=== PATIENT | male | born 1950 | race Caucasian/White ===

== ENCOUNTER 2019-12-26 18:14 | Emergency (ER) | payer BC ==
--- OUTSIDE RECORDS SUMMARY | 2019-12-26 18:15 | XMS REPORT ---
:1950 Author Organization [facility] t Address [address] [place] [address] [place] [id number] Care Team Providers Name Role Phone Unavailable Unavailable Unavailable Problems This patient has no known problems. Allergies, Adverse Reactions, Alerts This patient has no known allergies or adverse reactions. Medications This patient has no known medications. Results Test Description Test Time Test Comments Text Results Atomic Results Result Comments SHIRA IBARRA, 2019-12-20 Reason for FINAL REPORT PATIENT NON-SPECIFIC, UP TO 1 12:58:00 exam:->dysphagia ID: [id number] A HOUR fluoroscopic unit was utilized for a procedure performed in the operating room. No interpretation was requested. Please refer to the operative report regarding findings. Please refer to PACS for patient radiation dose information. Signed: JR Benítez Robert MDReport Verified Date/Time: 12/20/2019 12:58:42 Reading Location: [facility] Radiology Reading Room
[2019-12-26] MEDS ORDERED: NA CHLORIDE 0.9% 1,000 ML ONE (18:39)
[2019-12-26 18:51] LABS: Protime INR 1.21
[2019-12-26 18:52] LABS: Absolute Lymphocytes (CBC) 0.8 K/uL (0.7-4.9); Basophils % 0.3 % (0-1.3); Hematocrit 28.8 % (39.6-49.0); MPV 9.6 fL (7.6-11.3); RBC Red Blood Cell Count 3.33 M/uL (4.33-5.43)
--- NOTE | 2019-12-26 19:07 | RAD REPORT ---
EXAM DESCRIPTION: RAD - Chest Single View - 12/26/2019 6:44 pm CLINICAL HISTORY: Near syncope, hypotension, CVA history COMPARISON: Two view chest November 16 TECHNIQUE: AP portable chest image was obtained 12/26/2019 6:44 pm . FINDINGS: Lung volumes are low compared to prior imaging study. No focal lung parenchymal process. N o failure or volume overload. Right-sided Port-A-Cath has been placed since prior imaging. Heart and vasculature are normal. No measurable pleural effusion and no pneumothorax. No acute bony abnormality seen. No acute aortic findings suspected. IMPRESSION: No acute cardiopulmonary process. No worrisome change from comparison.
--- NOTE | 2019-12-26 19:08 | RAD REPORT ---
EXAM DESCRIPTION: CT - Head Brain Wo Cont - 12/26/2019 6:38 pm CLINICAL HISTORY: DIZZINESS COMPARISON: HEAD BRAIN W O CONTRAST dated 07/20/2013 TECHNIQUE: Axial 5 mm thick images of the head were obtained without IV contrast. All CT scans are performed using dose optimization technique as appropriate and may include automated exposure control or mA/KV adjustment according to patient size. FINDINGS: No intracranial hemorrhage, mass, edema or shift of mid-line structures. No acute infarcti on changes seen. No abnormal extra-axial fluid collections. Mild atrophy changes are present. Ventric les are in proportion. Mild chronic ischemic change also evident. Mastoid air cells and visualized portions of the paranasal sinuses are clear. No acute bony findings. IMPRESSION: No acute intracranial finding identifiable. Mild atrophy and mild chronic ischemic changes are present similar to comparison.
[2019-12-26 19:09] LABS: ALT/SGPT 15 U/L (12-78); AST/SGOT 12 U/L (15-37); Albumin 2.1 g/dL (3.4-5.0); Alkaline Phosphatase 106 U/L (45-117); BUN Blood Urea Nitrogen 14 mg/dL (7-18); Bicarbonate 26 mmol/L (21-32); Bilirubin Direct < 0.1 mg/dL (0-0.2); Bilirubin Total 0.3 mg/dL (0.2-1.0); Glucose Level 134 mg/dL (74-106); Magnesium 1.7 mg/dL (1.8-2.4); NT PRO-BNP 140 pg/mL (<125); Potassium 3.9 mmol/L (3.5-5.1); Protein, Total 5.3 g/dL (6.4-8.2); Sodium Level 138 mmol/L (136-145); Troponin (Emerg Dept Use Only) < 0.02 ng/mL (0.0-0.045)
[2019-12-26] MEDS ORDERED: MAGNESIUM SULFATE 1 gm IVPB 1 GM/100 ML BAG IV ONE (19:39)
[2019-12-26] MEDS ORDERED: PANTOPRAZOLE 40 MG INJ ONE (20:43)
[2019-12-26] MEDS ORDERED: NA CHLORIDE 0.9% 100 ML IV ONE ×3 (20:43→22:34)
[2019-12-26] MEDS ORDERED: NA CHLORIDE 0.9% 250 ML ONE (20:46)
[2019-12-26] MEDS ORDERED: NA CHLORIDE 0.9% 500 ML ONE (20:49)
[2019-12-26] MEDS ORDERED: OCTREOTIDE ACETATE 100 MCG/ML ONE (20:50)
[2019-12-26] MEDS ORDERED: ONDANSETRON 4 MG/2 ML VIAL ONE ×2 (20:52→23:46)
--- NOTE | 2019-12-26 21:17 | ER ---
Nurse's Notes [facility] Name: Sagrario Sood Age: 69 yrs Sex: Male : 1950 Arrival Date: 12/26/2019 Time: 18:17 Bed 2 Private MD: Diagnosis: Gastrointestinal hemorrhage, unspecified;Near syncope Presentation: 12/25 18:17 Chief complaint: EMS states: NEAR-SYNCOPE AT HOME WITH HYPOTENSION. Coronavirus screen: bp Proceed with normal triage. Ebola Screen: No symptoms or risks identified at this time. Initial Sepsis Screen: Does the patient meet any 2 criteria? No. Patient's initial sepsis screen is negative. Does the patient have a suspected source of infection? No. Patient's initial sepsis screen is negative. Risk Assessment: Do you want to hurt yourself or someone else? Patient reports no desire to harm self or others. Onset of symptoms was December 26, 2019. 18:17 Method Of Arrival: EMS: [facility] bp 18:17 Acuity: PHILL 3 bp 18:21 Care prior to arrival: IV initiated. 20 GA, in the left antecubital area, Glucose bp check: 130. Triage Assessment: 18:20 General: Appears in no apparent distress. comfortable, Behavior is calm, cooperative, bp appropriate for age. Pain: Denies pain. EENT: No deficits noted. Neuro: Level of Consciousness is awake, alert, obeys commands, Oriented to person, place, time, situation, Appropriate for age. Cardiovascular: No deficits noted. Rhythm is sinus rhythm. Respiratory: No deficits noted. GI: No signs and/or symptoms were reported involving the gastrointestinal system. : No signs and/or symptoms were reported regarding the genitourinary system. Derm: No deficits noted. Musculoskeletal: No deficits noted. Historical: - Allergies: 18:20 Sulfa (Sulfonamide Antibiotics); bp - Home Meds: 18:20 Lisinopril Oral [Active]; aspirin 81 mg Oral chew 1 tab once daily [Active]; Omeprazole bp Oral [Active]; Zofran Oral [Active]; Tramadol Oral [Active]; - PMHx: 18:20 Cancer; ESOPHAGEAL WITH METS TO LYMPH NODES AND LIVER; Hypertension; CVA; bp - Immunization history:: Adult Immunizations up to date. - Social history:: Smoking status: Patient denies any tobacco usage or history of. Screenin:22 Abuse screen: Denies threats or abuse. Denies injuries from another. Nutritional bp screening: No deficits noted. Tuberculosis screening: No symptoms or risk factors identified. Fall Risk None identified. Assessment: 18:22 General: SEE TRIAGE NOTE. bp 18:40 Reassessment: PT TO RADIOLOGY. bp 18:56 Reassessment: PT RETURNED FROM CT. bp 19:15 Reassessment: Patient appears in no apparent distress at this time. Patient and/or ao family updated on plan of care and expected duration. Pain level reassessed. Patient is alert, oriented x 3, equal unlabored respirations, skin warm/dry/pink. Waiting on Dispo orders. 20:13 Reassessment: Patient appears in no apparent distress at this time. Patient and/or ao family updated on plan of care and expected duration. Pain level reassessed. 20:15 Reassessment: sun (patient's ) spoke to her for the plan of care and agreed. rr5 sun's number [phone]. 20:55 GI: Pt is actively vomiting bright red blood, Reports nausea, vomiting, went to rr5 restroom assisted by ariana reece (blood mix with stool). ED provider aware with order made and carried out. 21:05 Reassessment: Patient was moved from his room because he was projectile vomiting red ao blood. 21:27 Reassessment: Notified RASHARD Miller of patient low BP. ao 21:30 Reassessment: Called Lab to check ET for blood to be ready. Per lab blood should be ao ready in 10 to 20 min. Lab will call back when ready. 22:00 Reassessment: Patient appears in no apparent distress at this time. Patient and/or ao family updated on plan of care and expected duration. Pain level reassessed. Started first unit. 23:00 Reassessment: Report given to SERINA Reyes. Patient understand and agree with POC. ao Waiting on EMS for transportation. 23:00 Reassessment: Patient and/or family updated on plan of care and expected duration. Pain ao level reassessed. Patient is alert, oriented x 3, equal unlabored respirations, skin warm/dry/pink. Started second unit. 23:57 Reassessment: Patient appears in no apparent distress at this time. Patient and/or ao family updated on plan of care and expected duration. Pain level reassessed. Hand off care to EMS. Patient VS stable. No questions at this time. Vital Signs: 18:17 BP 116 / 69; Pulse 90; Resp 20; Temp 97.5; Pulse Ox 100% ; Weight 72.12 kg; Height 6 bp ft. 1 in. (185.42 cm); 18:30 BP 98 / 71; Pulse 85; Resp 20; Pulse Ox 100% ; bp 18:55 BP 90 / 70 Supine; Pulse 88; Resp 17; Pulse Ox 99% ; hb 18:55 BP 68 / 49 Sitting; Pulse 116; Resp 18; Pulse Ox 99% ; hb 19:40 BP 111 / 64; Pulse 88; Resp 15; Pulse Ox 100% on R/A; Pain 0/10; ao 20:13 BP 124 / 67; Pulse 89; Resp 18; Pulse Ox 99% ; ao 21:20 BP 87 / 64; Pulse 96; Resp 17; Pulse Ox 99% ; rr5 21:55 BP 74 / 58; Pulse 99; Resp 18; Temp 97.2(TE); Pulse Ox 100% ; ao 22:15 BP 67 / 58; Pulse 100; Resp 20; Temp 97.0(TE); Pulse Ox 99% on R/A; ao 22:30 BP 77 / 65; Pulse 96; Resp 22; Temp 96.8(TE); Pulse Ox 100% ; ao 22:36 BP 103 / 69; Pulse 85; Resp 18; Pulse Ox 100% ; ao 23:00 BP 107 / 77; Pulse 87; Resp 19; Pulse Ox 100% on R/A; ao 23:22 BP 114 / 74; Pulse 87; Resp 16; Pulse Ox 100% on R/A; ao 18:17 Body Mass Index 20.98 (72.12 kg, 185.42 cm) bp ED Course: 18:17 Patient arrived in ED. bp 18:18 Triage completed. bp 18:18 Patient has correct armband on for positive identification. Bed in low position. Call jp3 light in reach. Side rails up X 1. Side rails up X2. Warm blanket given. Verbal reassurance given. library monitor on. Pulse ox on. NIBP on. 18:18 Maintain EMS IV. Dressing intact. Good blood return noted. Site clean \T\ dry. Gauge \T\ joey 3 site: 20-gauge LAC. Patient maintains SpO2 saturation greater than 95% on room air. 18:19 Paul Dawkins NP is PHCP. pm1 18:19 Kelby Bah MD is Attending Physician. pm1 18:20 Arm band placed on. bp 18:29 Seth Ramires, SERINA is Primary Nurse. bp 18:38 CT Head Brain wo Cont In Process Unspecified. EDMS 18:44 XRAY Chest (1 view) In Process Unspecified. EDMS 19:14 Report received from SERINA Ann. ao 19:15 EKG done, by ED staff. ao 21:10 Inserted saline lock: 20 gauge in right antecubital area, using aseptic technique. rr5 Blood collected. 22:07 Inserted saline lock: 22 gauge in left wrist, using aseptic technique. jd3 23:58 No provider procedures requiring assistance completed. Patient transferred, IV remains ao in place. Administered Medications: 18:56 Drug: NS 0.9% 1000 ml Route: IV; Rate: 1000 ml; Site: left antecubital; bp 20:00 Follow up: IV Status: Completed infusion; IV Intake: 100ml ao 19:04 Drug: NS 0.9% 1000 ml Route: IV; Rate: 1000 ml; Site: left antecubital; hb 23:52 Follow up: IV Status: Completed infusion; IV Intake: 1000ml ao 19:40 Drug: Magnesium Sulfate 1 grams Route: IVPB; Infused Over: 1 hrs; Site: left ao antecubital; 21:00 Follow up: IV Status: Completed infusion; IV Intake: 100ml ao 21:10 Drug: Zofran (Ondansetron) 4 mg Route: IVP; Site: right antecubital; rr5 23:53 Follow up: Response: No adverse reaction ao 21:12 Drug: ProTONIX 40 mg Route: IVP; Site: right antecubital; rr5 23:53 Follow up: Response: No adverse reaction ao 21:14 Drug: Octreotide 50 mcg Route: IV; Rate: calculated rate; Site: right antecubital; rr5 23:53 Follow up: IV Status: Completed infusion ao 21:16 Drug: Octreotide Infusion (50 mcg/hr) - (Octreotide 500 mcg, NS 0.9% 500 ml) Route: IV; rr5 Rate: 50 ml/hr; Site: right antecubital; 23:53 Follow up: IV Status: Infusion continued upon transfer ao 21:18 Drug: ProTONIX 8 mg/hr Route: IV; Rate: 25 ml/hr; Site: left antecubital; rr5 23:53 Follow up: IV Status: Infusion continued upon admission ao 22:16 Drug: Lactated Ringers Solution 2000 ml Route: IV; Rate: 1000 ml/hr; Site: left jd3 antecubital; 23:54 Follow up: IV Status: Infusion continued upon transfer ao 22:26 Drug: Benadryl 12.5 mg Route: IVP; Site: left antecubital; rr5 23:54 Follow up: Response: No adverse reaction ao 22:26 Drug: Solu-CORTEF 50 mg Route: IVP; Site: left antecubital; rr5 23:54 Follow up: Response: No adverse reaction ao 23:45 Drug: Zofran (Ondansetron) 4 mg Route: IVP; Site: left wrist; ao 23:54 Follow up: Response: No adverse reaction ao Intake: 20:00 IV: 100ml; Total: 100ml. ao 21:00 IV: 100ml; Total: 200ml. ao 23:52 IV: 1000ml; Total: 1200ml. ao Outcome: 21:16 ER care complete, transfer ordered by MD. pm1 23:58 Transferred by ground EMS to [facility], Transfer form completed. ao 23:58 Condition: stable 23:58 Instructed on the need for transfer. 12/26 00:07 Patient left the ED. ao Signatures: Dispatcher [employer] EDTN Robb Solis RN RN ao Paul Dawkins, MANAGER RESPIRATORY CARE MANAGER RESPIRATORY CARE pm1 Katherine Moreno RN RN hb Davies, Jonathon, RN RN jSeth Salinas RN RN bp Pisarski, Jacob jp3 Matthew Enriquez RN RN rr5
--- NOTE | 2019-12-26 21:17 | EDPHYS ---
[facility] Name: Sagrario Sood Age: 69 yrs Sex: Male : 1950 Arrival Date: 12/26/2019 Time: 18:17 Bed 2 Private MD: ED Physician Kelby Bah HPI: 12/25 18:56 This 69 yrs old Male presents to ER via EMS with complaints of Near Syncope. pm1 18:56 The patient has experienced near-syncope, felt faint. pm1 18:56 Onset: The symptoms/episode began/occurred today. Duration: This was a single episode. pm1 Context: the episode(s) was witnessed, by family, , occurred at home, occurred while the patient was standing up from sitting and walking to the table. Associated injury: The patient did not suffer any apparent associated injury. Associated signs and symptoms: Pertinent positives: dizziness, Pertinent negatives: abdominal pain, chest pain, diarrhea, nausea, shortness of breath, vomiting. Current symptoms: Currently, the patient is not experiencing any symptoms, the patient feels back to baseline. Historical: - Allergies: 18:20 Sulfa (Sulfonamide Antibiotics); bp - Home Meds: 18:20 Lisinopril Oral [Active]; aspirin 81 mg Oral chew 1 tab once daily [Active]; Omeprazole bp Oral [Active]; Zofran Oral [Active]; Tramadol Oral [Active]; - PMHx: 18:20 Cancer; ESOPHAGEAL WITH METS TO LYMPH NODES AND LIVER; Hypertension; CVA; bp - Immunization history:: Adult Immunizations up to date. - Social history:: Smoking status: Patient denies any tobacco usage or history of. ROS: 18:59 Constitutional: Negative for fever, chills, and weight loss, Cardiovascular: Negative pm1 for chest pain, palpitations, and edema, Respiratory: Negative for shortness of breath, cough, wheezing, and pleuritic chest pain, Abdomen/GI: Negative for abdominal pain, nausea, vomiting, diarrhea, and constipation, Back: Negative for injury and pain, MS/Extremity: Negative for injury and deformity, Skin: Negative for injury, rash, and discoloration. 18:59 Neuro: Positive for dizziness, Negative for headache, numbness, tingling, weakness. Exam: 18:59 Abdomen/GI: Exam negative for acute changes, Inspection: abdomen appears normal, pm1 Palpation: abdomen is soft and non-tender, in all quadrants. 18:59 Constitutional: This is a well developed, well nourished patient who is awake, alert, and in no acute distress. Head/Face: Normocephalic, atraumatic. Neck: Trachea midline, no thyromegaly or masses palpated, and no cervical lymphadenopathy. Supple, full range of motion without nuchal rigidity, or vertebral point tenderness. No Meningismus. Chest/axilla: Normal chest wall appearance and motion. Nontender with no deformity. No lesions are appreciated. 18:59 Abdomen/GI: Soft, non-tender, with normal bowel sounds. No distension or tympany. No guarding or rebound. No evidence of tenderness throughout. Back: No spinal tenderness. No costovertebral tenderness. Full range of motion. Skin: Warm, dry with normal turgor. Normal color with no rashes, no lesions, and no evidence of cellulitis. MS/ Extremity: Pulses equal, no cyanosis. Neurovascular intact. Full, normal range of motion. 18:59 Cardiovascular: Exam negative for acute changes, Rate: normal, Rhythm: regular, Pulses: no pulse deficits are appreciated, Edema: is not appreciated. 18:59 Respiratory: Exam negative for acute changes, respiratory distress, shortness of breath, the patient does not display signs of respiratory distress, Respirations: normal. 18:59 Neuro: Exam negative for acute changes, focal neuro deficits, Orientation: is normal, Mentation: is normal, Motor: is normal, moves all fours. Vital Signs: 18:17 BP 116 / 69; Pulse 90; Resp 20; Temp 97.5; Pulse Ox 100% ; Weight 72.12 kg; Height 6 bp ft. 1 in. (185.42 cm); 18:30 BP 98 / 71; Pulse 85; Resp 20; Pulse Ox 100% ; bp 18:55 BP 90 / 70 Supine; Pulse 88; Resp 17; Pulse Ox 99% ; hb 18:55 BP 68 / 49 Sitting; Pulse 116; Resp 18; Pulse Ox 99% ; hb 19:40 BP 111 / 64; Pulse 88; Resp 15; Pulse Ox 100% on R/A; Pain 0/10; ao 20:13 BP 124 / 67; Pulse 89; Resp 18; Pulse Ox 99% ; ao 21:20 BP 87 / 64; Pulse 96; Resp 17; Pulse Ox 99% ; rr5 21:55 BP 74 / 58; Pulse 99; Resp 18; Temp 97.2(TE); Pulse Ox 100% ; ao 22:15 BP 67 / 58; Pulse 100; Resp 20; Temp 97.0(TE); Pulse Ox 99% on R/A; ao 22:30 BP 77 / 65; Pulse 96; Resp 22; Temp 96.8(TE); Pulse Ox 100% ; ao 22:36 BP 103 / 69; Pulse 85; Resp 18; Pulse Ox 100% ; ao 23:00 BP 107 / 77; Pulse 87; Resp 19; Pulse Ox 100% on R/A; ao 23:22 BP 114 / 74; Pulse 87; Resp 16; Pulse Ox 100% on R/A; ao 18:17 Body Mass Index 20.98 (72.12 kg, 185.42 cm) bp MDM: 18:22 Patient medically screened. taryn 18:59 Data reviewed: vital signs. Data interpreted: Pulse oximetry: on room air is 100 %. pm1 Interpretation: normal. 20:40 ED course: Patient with bright red blood vomit at bedside. Estimate approximately 250 pm1 mL on floor. Patient with bowel movement afterwards - melena. Ordered blood transfusion, protonix, octreotide, zofran. 21:11 Counseling: I had a detailed discussion with the patient and/or guardian regarding: the pm1 historical points, exam findings, and any diagnostic results supporting the discharge/admit diagnosis, lab results, the need to transfer to another facility, for higher level of care, Esophageal stent placement [address] Julia Felton at [facility]. 22:11 Physician consultation: [employer] Dr. Barnhart regarding regarding transfer, pm1 patient's condition, and will see patient Would like 2 liters LR Bolus, Additional peripheral access, 2 Units of PRBCs. If patient vomits again, then intubate the patient prior to transfer and update him. 12/25 18:26 Order name: Basic Metabolic Panel; Complete Time: 19:15 pm1 12/25 18:26 Order name: CBC with Diff; Complete Time: 18:56 pm1 12/25 18:26 Order name: LFT's; Complete Time: 19:15 pm1 12/25 18:26 Order name: Magnesium; Complete Time: 19:15 pm1 12/25 18:26 Order name: NT PRO-BNP; Complete Time: 19:15 pm12/25 18:26 Order name: PT-INR; Complete Time: 18:56 pm1 12/25 18:26 Order name: Troponin (emerg Dept Use Only); Complete Time: 19:15 pm1 12/25 18:26 Order name: XRAY Chest (1 view); Complete Time: 19:15 pm12/25 18:26 Order name: CT Head Brain wo Cont; Complete Time: 19:15 pm1 12/25 20:35 Order name: Type And Screen pm1 12/25 21:08 Order name: Packed RBC Leukored EDKS 12/25 21:49 Order name: ABO/RH no charge; Complete Time: 21:52 EDKS 12/25 18:26 Order name: Cardiac monitoring; Complete Time: 18:29 pm1 12/25 18:26 Order name: EKG - Nurse/Tech; Complete Time: 19:41 pm1 12/25 18:26 Order name: IV Saline Lock; Complete Time: 18:29 pm1 12/25 18:26 Order name: Labs collected and sent; Complete Time: 18:37 pm1 12/25 18:26 Order name: O2 Per Protocol; Complete Time: 18:29 pm12/25 18:26 Order name: O2 Sat Monitoring; Complete Time: 18:29 pm1 12/25 18:26 Order name: Orthostatic Blood Pressure; Complete Time: 19:03 pm1 12/25 20:35 Order name: Transfuse; Complete Time: 23:38 pm1 Administered Medications: 18:56 Drug: NS 0.9% 1000 ml Route: IV; Rate: 1000 ml; Site: left antecubital; bp 20:00 Follow up: IV Status: Completed infusion; IV Intake: 100ml ao 19:04 Drug: NS 0.9% 1000 ml Route: IV; Rate: 1000 ml; Site: left antecubital; hb 23:52 Follow up: IV Status: Completed infusion; IV Intake: 1000ml ao 19:40 Drug: Magnesium Sulfate 1 grams Route: IVPB; Infused Over: 1 hrs; Site: left ao antecubital; 21:00 Follow up: IV Status: Completed infusion; IV Intake: 100ml ao 21:10 Drug: Zofran (Ondansetron) 4 mg Route: IVP; Site: right antecubital; rr5 23:53 Follow up: Response: No adverse reaction ao 21:12 Drug: ProTONIX 40 mg Route: IVP; Site: right antecubital; rr5 23:53 Follow up: Response: No adverse reaction ao 21:14 Drug: Octreotide 50 mcg Route: IV; Rate: calculated rate; Site: right antecubital; rr5 23:53 Follow up: IV Status: Completed infusion ao 21:16 Drug: Octreotide Infusion (50 mcg/hr) - (Octreotide 500 mcg, NS 0.9% 500 ml) Route: IV; rr5 Rate: 50 ml/hr; Site: right antecubital; 23:53 Follow up: IV Status: Infusion continued upon transfer ao 21:18 Drug: ProTONIX 8 mg/hr Route: IV; Rate: 25 ml/hr; Site: left antecubital; rr5 23:53 Follow up: IV Status: Infusion continued upon admission ao 22:16 Drug: Lactated Ringers Solution 2000 ml Route: IV; Rate: 1000 ml/hr; Site: left jd3 antecubital; 23:54 Follow up: IV Status: Infusion continued upon transfer ao 22:26 Drug: Benadryl 12.5 mg Route: IVP; Site: left antecubital; rr5 23:54 Follow up: Response: No adverse reaction ao 22:26 Drug: Solu-CORTEF 50 mg Route: IVP; Site: left antecubital; rr5 23:54 Follow up: Response: No adverse reaction ao 23:45 Drug: Zofran (Ondansetron) 4 mg Route: IVP; Site: left wrist; ao 23:54 Follow up: Response: No adverse reaction ao Disposition: 12/26 14:00 Co-signature as Attending Physician, Kelby Bah MD I agree with the assessment and taryn plan of care. Disposition: 12/26/19 21:[address] [facility]. Diagnosis are Gastrointestinal hemorrhage, unspecified, Near syncope. - Reason for transfer: Private Physician at Transferring [facility]. - Accepting physician is [facility]. - Condition is Stable. - Problem is new. - Symptoms have improved. Signatures: Dispatcher [employer] Kelby Soliz MD MD cha Ortiz, Alex, RN RN ao Paul Dawkins, HYDRO GENERATION MANAGER HYDRO GENERATION MANAGER pm1 Katherine Moreno, RN RN Parth Peace, SERINA RN jd3 Seth Ramires, RN RN bp Matthew Enriquez, RN RN rr5 Corrections: (The following items were deleted from the chart) 12/25 21:20 21:16 12/26/2019 21:[address] [facility]. pm1 Diagnosis is Gastrointestinal hemorrhage, unspecified. Reason for transfer: Private Physician at [facility]. Accepting physician is [facility]. Condition is Stable. Problem is new. Symptoms have improved. pm1 12/26 00:07 12/25 21:20 12/26/2019 21:[address] [facility]. ao Diagnosis is Gastrointestinal hemorrhage, unspecified; Near syncope. Reason for transfer: Private Physician at [facility]. Accepting physician is [facility]. Condition is Stable. Problem is new. Symptoms have improved. pm1
[2019-12-26] MEDS ORDERED: Ringers Lactate 2,000 ML IV ONE (22:18)
[2019-12-26] MEDS ORDERED: HYDROCORTISONE SUC 100 MG INJ ONE (22:24)
[2019-12-26] MEDS ORDERED: DIPHENHYDRAMINE 50 MG/ML VIAL ONE (22:24)
[2019-12-26] MEDS ORDERED: ONDANSETRON 4 MG (ODT) TAB ONE (23:46)
[2019-12-27 00:32] VITALS: TEMP 96.8; O2SAT 100
[2019-12-27 00:36] VITALS: BP 114/74
--- NOTE | 2019-12-27 11:31 | EKG ---
Test Date: 2019-12-26 Test Time: 19:12:02 Science Editor: [place] MEASUREMENT RESULTS: Intervals: Rate: 79 ND: 136 QRSD: 86 QT: 388 QTc: 444 [place]: P: 61 ND: 136 QRS: 48 T: 64 INTERPRETIVE STATEMENTS: Normal sinus rhythm Normal ECG Compared to ECG 07/20/2013 17:12:30 ST (T wave) deviation no longer present Electronically Signed On 12-27-19 11:29:55 CDT by Emmanuel Lou
== END 2019-12-27 00:07 | disposition short-term general hospital (02) ==
LOC: ER 18:14
PROC: 30233N1 Transfusion of Nonautologous Red Blood Cells into Peripheral Vein, Percutaneous Approach (ICD-10-PCS; principal; 2019-12-27)
DX: R04.2 Hemoptysis (principal); K92.1 Melena; I10 Essential (primary) hypertension; C15.9 Malignant neoplasm of esophagus, unspecified; C78.7 Secondary malignant neoplasm of liver and intrahepatic bile duct; Z79.82 Long term (current) use of aspirin; Z88.2 Allergy status to sulfonamides
CPT/HCPCS: 93005; 85025; 80048; 36415; 86900; 83735; 86850; 85610; 86901; 80076; 84484; 83880; 70450; 71045; 36430; J1200; J2354; C9113; J3475; P9016 ×2; J7120; J7030 ×2; J7040; J1720; J2405 ×2; 99285

== ENCOUNTER 2020-03-17 15:01 | Emergency (ER) | payer BC, OTHER ==
--- OUTSIDE RECORDS SUMMARY | 2020-03-17 15:05 | XMS REPORT | Clinical Summary ---
:1950 Author Organization [facility] [facility] Address [address] [place] [address] Care Team Providers Name Role Phone Leonard Arredondo A Primary Care Provider Allergies Active Allergy Reactions Severity Noted Date Comments Sulfa (Sulfonamide Other (See Comments) 12/07/2019 F greg like symptoms Antibiotics) Medications Medication Sig Dispensed Refills Start Date End Date Status aspirin (ECOTRIN) 81 Take 81 mg by 0 Active MG enteric coated mouth daily. tablet pantoprazole Take 40 mg by 0 12/30/2019 Ac tive (PROTONIX) 40 MG EC mouth 2 (two) tablet times a day. ondansetron ODT Take 8 mg by 0 A ctive (ZOFRAN-ODT) 8 MG mouth 2 (two) disintegrating tablet times a day. traMADoL (ULTRAM) 50 Take 50 mg by 0 12/21/2019 Active mg tablet mouth. lisinopriL (PRINIVIL) 0 09/16/2019 02 Discontinued 5 mg tablet 0 prochlorperazine Take 1 tablet 30 tablet 5 12/08/2019 01/07/20 2 (Compazine) 5 MG (5 mg total) 0 tabletIndications: GE by mouth junction carcinoma every 6 (six) (HCC) hours as needed for nausea or vomiting for up to 30 days. ondansetron ODT Take 1 tablet 30 tablet 5 12/08/2019 (Zofran ODT) 8 MG (8 mg total) 0 disintegrating by mouth tabletIndications: GE every 8 junction carcinoma (eight) hours (HCC) as needed for nausea or vomiting for up to 30 days. dronabinoL (Marinol) Take 1 20 capsule 0 12/21/2019 02 2.5 MG capsule capsule (2.5 0 mg total) by mouth 2 (two) times a day before meals for 10 days. 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 12/07/2019 Resolved Problems Problem Noted Date Resolved Date Gastrointestinal hemorrhage associated with gastric ulcer 02/08/2020 Esophageal dysphagia 12/07/2019 02/08/2020 Encounters Date Type Specialty Care Team Description 03/14/2020 Infusion Oncology Erin Carpiok GE junction car wardoma MD Joaquin (HCC) (Primary Dx) 03/14/2020 Office Visit Oncology Pollo Carpio GE junction car cinoma (HCC) (Primary Dx); MD Joaquin Liver metastase s (HCC) 03/14/2020 Travel 03/13/2020 Orders Only Oncology Pollo Carpio GE junction car wardoma MD Joaquin (HCC) (Primary Dx) 03/13/2020 Oncology Oncology [facility], [facility] Melita, SERINA 03/12/2020 Infusion Oncology Pollo Carpio GE junction car cinoma (HCC) (Primary Dx); MD Joaquin Liver metastase s (HCC) 03/12/2020 Orders Only Oncology Jamil Norman, SERINA 03/12/2020 Orders Only Oncology Bobbi Fleming, [facility] 03/12/2020 [facility] 03/12/2020 Travel 03/09/2020 Orders Only Pharmacy Antoinette Jett, [facility] 03/08/2020 Transcribe Orders Access Julia Felton Malignant neoplasm of esophagus, unspecified (HCC) (Primary Dx); MD Maycol Dysphagia, unsp ecified; Pre-operative c learance 03/07/2020 [facility] Melita, SERINA 03/07/2020 [facility] Nurse Only Oncology Erin Carpiok GE junction car cinoma (HCC) (Primary Dx); MD Joaquin Dehydration 02/29/2020 Orders Only Oncology Nini Tran, [facility] 02/29/2020 Travel 02/29/2020 Oncology Oncology [facility] Melita, SERINA 02/29/2020 Orders Only Oncology Jamil Norman RN 02/28/2020 Oncology Oncology [facility] Melita, SERINA 02/27/2020 Infusion Oncology Pollo Carpio GE junction car jose Nuñez MD (HCC) (Primary Dx) 02/27/2020 [facility] 02/27/2020 Travel 02/24/2020 Orders Only Antoinette Rajput RPH 02/22/2020 Hospital Encounter Radiology Julia Felton Abnormal findings on M.MD diagnostic imag ing of other parts of digestive tract 02/22/2020 Surgery Gastroenterology Julia Felton EGD W/ STEN T W/ MD MARGUERITE Severino 02/22/2020 Anesthesia Event Gastroenterology Raj Cowart MD [place], Teri, RASHARD 02/22/2020 Hospital Encounter Gastroenterology Julia Felton MD 02/21/2020 Travel 02/20/2020 Travel 02/20/2020 Telephone Oncology Pollo Carpio MD 02/17/2020 Oncology Oncology [facility] Melita, SERINA 02/16/2020 Telephone Oncology Norman Lotti GE junction car cinoma (HCC) (Primary Dx); SERINA Contreras Dysphagia, unsp ecified type 02/15/2020 Orders Only Oncology Norman, Lotti GE junction car jose Contreras RN (HCC) (Primary Dx) 02/15/2020 [facility] 02/10/2020 Nurse Only Oncology Pollo Carpio GE junction car jose Nuñez MD (HCC) (Primary Dx) 02/10/2020 Travel 02/10/2020 Orders Only Oncology Araceli Jenkins RN 02/08/2020 Office Visit Oncology Pollo Carpio GE junction car cinoma (HCC) (Primary Dx); MD Joaquin Liver metastase s (HCC) 02/08/2020 Infusion Oncology Pollo Carpio GE junction car cinoma (HCC) (Primary Dx); MD Joaquin Liver metastase s (HCC) 02/08/2020 Hospital Encounter Radiology Pollo Carpio juncti on carcinoma (HCC); MD Joaquin Liver metastase s (HCC) 02/08/2020 Oncology Oncology Tylor Brand RN 02/08/2020 Travel 01/27/2020 Office Visit Cardiology [place], Palpitations (P rimary Dx); Genevieve GE junction car jose (HCC) RASHARD Nicolas 01/27/2020 Nurse Only Oncology Pollo Carpio GE junction car jose Nuñez MD (HCC) (Primary Dx) 01/27/2020 Travel 01/25/2020 Infusion Oncology Pollo Carpio GE junction car jose Nuñez MD (HCC) (Primary Dx) 01/25/2020 Oncology Oncology Tylor Brand RN 01/25/2020 Travel 01/24/2020 Orders Only Pharmacy Antoinette Jett [facility] 01/23/2020 Telephone Oncology Pollo Carpio MD 01/23/2020 Travel 01/19/2020 Telephone Oncology Jamil Norman junction car jose Contreras RN (HCC) (Primary Dx) 01/19/2020 Orders Only Oncology Jamil Norman RN 01/12/2020 Nurse Only Oncology Pollo Carpio GE junction car jose Nuñez MD (HCC) (Primary Dx) 01/12/2020 Hospital Encounter Procedural Cardiology Pollo Carpio Encounter for MD Joaquin antineoplastic chemotherapy 01/12/2020 Travel 01/11/2020 Orders Only Oncology [place] GE nenita car jose (HCC) (Primary Dx); MANUELA Sims Liver metastase s (HCC) 01/11/2020 Telephone Oncology Pollo Carpio MD 01/11/2020 Telephone Oncology Jamil Norman RN 01/11/2020 Travel 01/11/2020 Documentation Oncology Melita Brand RN 01/11/2020 Documentation Oncology Melita Brand RN 01/10/2020 Office Visit Oncology Pollo Carpio Gastrointestina l hemorrhage associated with gastric ulcer (Primary Dx); MD Joaquin GE junction car wardoma (HCC); Liver metastase s (HCC); Hypotension due to drugs; Esophageal dysp hagia 01/10/2020 Infusion Oncology Pollo Carpio GE junction car jose Nuñez MD (HCC) (Primary Dx) 01/10/2020 Oncology Oncology Tylor Brand RN 01/10/2020 Orders Only Oncology [place], Encounter for MANUELA Sims antineoplastic chemotherapy (P rimary Dx) 01/10/2020 Telephone Oncology Pollo Carpio MD 01/09/2020 Telephone Oncology Melita Brand, SERINA 01/09/2020 Orders Only Pharmacy Antoinette Jett, [facility] 01/09/2020 Travel 01/09/2020 Documentation Oncology Melita Brand, SERINA 01/09/2020 Telephone Oncology Pollo Carpio MD 01/06/2020 Telephone Consult Oncology Pollo Carpio GE junctio n carcinoma (HCC) (Primary Dx); MD Joaquin Esophageal dysp hagia; Liver metastase s (HCC) 01/06/2020 Orders Only Oncology [place], Encounter for MANUELA Sims antineoplastic chemotherapy (P rimary Dx) 01/04/2020 Telephone Oncology Melita Brand, SERINA 01/04/2020 Orders Only Oncology Nini Tran, [facility] 01/03/2020 Orders Only Oncology Jamil Norman RN 01/03/2020 Telephone Oncology Yelitza Foster RD 12/30/2019 Telephone Oncology Jamil Norman RN 12/28/2019 Telephone Oncology Melita Brand RN 12/27/2019 Telephone Oncology Bethany Santiago MA 12/26/2019 Telephone Oncology Pollo Carpio MD 12/26/2019 Travel 12/26/2019 Documentation Oncology Nicolas Abraham RN 12/22/2019 Telephone Oncology Melita Brand RN 12/22/2019 Orders Only Oncology [place], Encounter for a ntineoplastic chemotherapy (Primary Dx); MANUELA Sims GE junction car cinoma (HCC) 12/22/2019 Orders Only Oncology Pollo Carpio MD 12/22/2019 Orders Only Oncology Nini Tran, Марина 12/22/2019 Orders Only Oncology Jamil Norman RN 12/21/2019 Telephone Oncology Pollo Carpio MD 12/21/2019 Telephone Oncology Melita Brand, SERINA 12/21/2019 Telephone Oncology Yelitza Foster RD 12/21/2019 Orders Only Oncology Jamil Norman RN 12/19/2019 Telephone Oncology Jamil Norman RN 12/19/2019 Telephone Oncology Yelitza Foster, MADIE 12/19/2019 Telephone Oncology Melita Brand, RN 12/16/2019 Telephone Oncology Melita Brand, RN 12/15/2019 Nurse Only Oncology Pollo Carpio GE junction fartun Nuñez MD (HCC) (Primary Dx) 12/14/2019 Travel 12/14/2019 Telephone Oncology Melita Brand, RN 12/14/2019 Social Work Oncology Melita Guzman, [employer] 12/13/2019 Infusion Oncology Pollo Carpio GE junction fartun Nuñez MD (HCC) (Primary Dx) 12/13/2019 Documentation Oncology Nini Tran [facility] 12/13/2019 Telephone Oncology Pollo Carpio MD 12/12/2019 Telephone Oncology Pollo Carpio MD 12/12/2019 Telephone Oncology Pollo Carpio MD 12/12/2019 Travel 12/09/2019 Hospital Encounter Radiology Pollo Carpio Malignant neoplasm of esophagus, unspecified location (HCC); MD Joaquin Pre-op testing 12/09/2019 Telephone Oncology Pollo Carpio MD 12/09/2019 Telephone Oncology Jamil Norman RN 12/09/2019 Telephone Oncology Pollo Carpio MD 12/09/2019 Telephone Oncology Pollo Carpio MD 12/09/2019 Travel 12/08/2019 Telephone Oncology Pollo Carpio MD 12/08/2019 Orders Only Oncology Pollo Carpio GE nenita Nuñez MD (HCC) (Primary Dx) 12/08/2019 Telephone Radiology Dolores Montanez, SERINA 12/08/2019 Oncology Oncology Tylor Brand RN 12/08/2019 Documentation Medical Records Provider, Unknown 12/08/2019 Orders Only Oncology Nini Tran [facility] 12/08/2019 Orders Only Oncology [place], GE junction car jose Terrazas RPH (HCC) (Primary Dx) 12/07/2019 Hospital Encounter Radiology Pollo Carpio MD 12/07/2019 Hospital Encounter Radiology Pollo Carpio MD 12/07/2019 Hospital Encounter Radiology Pollo Carpio Malignant neoplasm of MD Joaquin esophagus, unspecified loc ation (HCC) 12/07/2019 Lab Lab Pollo Carpio Malignant neopl asm of esophagus, unspecified location (HCC); MD Joaquin Pre-op testing 12/07/2019 Consult Oncology Pollo Carpio Liver metastase s (HCC) (Primary Dx); MD Joaquin GE junction car cinoma (HCC) 12/07/2019 Orders Only Oncology [place], Malignant neopl asm of MANUELA Sims esophagus, unspecified loc ation (HCC) (Primary Dx) 12/07/2019 Orders Only Oncology [place], Malignant neopl asm of esophagus, unspecified location (HCC) (Primary Dx); MANUELA Sims Pre-op testing 12/07/2019 Travel 12/02/2019 Telephone Oncology Pollo Carpio MD 12/01/2019 Office Visit General Surgery [place], Malignant ne oplasm of Theron Garsia MD esophagus, unspecified loc ation (HCC) (Primary Dx) 12/01/2019 Travel 11/30/2019 Travel after 03/17/2019 Family History Medical History Relation Name Comments Heart attack Father Breast cancer Mother Relation Name Status Comments Father Mother Social History Tobacco Use Types Packs/Day Years Used Date Former Smoker Cigars 1 Quit: 10/2019 Smokeless Tobacco: Never Used Alcohol Use Drinks/Week oz/Week Comments Never Alcohol Habits Answer Date Recorded How often do you have a drink containing alcohol? Never 12/07/2019 How many drinks containing alcohol do you have on a typical Not asked day when you are drinking? How often do you have six or more drinks on one occasion? No t asked Sex Assigned at Date Recorded Not on file Job Start Date Occupation Industry Not on file Not on file Not on file Travel History Travel Start Travel End No recent travel history available. COVID-19 Exposure Response Date Recorded In the last month, have you been in contact with No / Unsure 03/14/2020 3:21 PM CDT someone who was confirmed or suspected to have Coronavirus / COVID-19? Last Filed Vital Signs Vital Sign Reading Time Taken Comments Blood Pressure 109/66 03/14/2020 3:40 PM CDT Pulse 58 03/14/2020 3:40 PM CDT Temperature 36.6 C (97.8 F) 03/14/2020 3:40 PM CDT Respiratory Rate 18 03/14/2020 3:40 PM CDT Oxygen Saturation 99% 03/14/2020 3:40 PM CDT Inhaled Oxygen Concentration - - Weight 66.6 kg (146 lb 11.8 oz) 03/14/2020 3:40 PM CDT Height 185.4 cm (6' 1") 03/14/2020 3:40 PM CDT Body Mass Index 19.36 03/14/2020 3:40 PM CDT Plan of Treatment Date Type Specialty Care Team Description 03/26/2020 Infusion Oncology Pollo Carpio MD [address] [address] [phone] 03/28/2020 Nurse Only Oncology Pollo Carpio MD [address] [place] [address] 0 [phone] 03/30/2020 Lab Lab Julia Felton MD [address] [place] [phone] 04/04/2020 Hospital Encounter Gastroenterology Julia Felton MD [address] [place] [phone] 04/04/2020 Surgery Gastroenterology Julia Felton, EGD W/ STENT REMOVAL MD Prasad/ MARGUERITE [address] [place] [address] 04/09/2020 Infusion Oncology Pollo Carpio MD [address] [address] 0 [phone] 04/09/2020 Office Visit Oncology Pollo Carpio MD [address] [place] [address] 0 [phone] 04/11/2020 Nurse Only Oncology Pollo Carpio MD [address] [place] [address] 0 [phone] 04/23/2020 Infusion Oncology Pollo Carpio MD [address] [facility] [address] [place], [place] [address] [phone] 04/25/2020 Nurse Only Oncology Pollo Carpio MD [address] [facility] [address] [place], [place] [address] [phone] 05/07/2020 Infusion Oncology Pollo Carpio MD [address] [facility] [address] [place], [place] [address] [phone] 05/09/2020 Nurse Only Oncology Pollo Carpio MD [address] [facility] [address] [place] [address] 0 [phone] 05/09/2020 Office Visit Cardiology Wayne Gee MD [address] [facility] [address] [place], [place] [address] [phone] Health Maintenance Due Date Last Done Comments COLONOSCOPY SCREENING 1998 SHINGLES VACCINES (#1) 1998 65+ PNEUMOCOCCAL VACCINE (1 of 2 - PCV13) 2013 INFLUENZA VACCINE 04/14/2020 Implants Implanted Type Area Neurology Hospitalist Device Shelf Model / Identifier Expiration Serial / Date Lot Port Imlpntbl Smart Port W/ Dtchd 0.4ml 6.6fr 55cm W/ Sheath - [id number] Implantable N/A: ANGIODYNAMICS 05/14/2022 [id number] 1 HOUS / Implanted: 12/09/2019 at [facility] (Quantity not on file) Inf usion Ports N/A INC / or Accessories [id number] Stent Stent Description:digestive Stent Espgl Wallflex 10cm 23mm Flcvrd - [id number] Surgical Sten ts N/A: N/A [facility]SC ENDOSCOPY 05/25/2021 [id number] / Implanted: 02/22/2020 at [facility] (Quantity not on file) / [id number] Procedures Procedure Name Priority Date/Time Associated Comments Diagnosis ESTIMATED GFR STAT 03/12/2020 Results for 10:04 AM CDT this procedure are in the results section. MAGNESIUM LEVEL STAT 03/12/2020 GE junction Results for 10:04 AM CDT carcinoma (HCC) this procedure are in the results section. HC COMPLETE BLD COUNT W/AUTO STAT 03/12/2020 GE junction Results for DIFF 10:04 AM CDT carcinoma (HCC) this procedure are in the results section. COMPREHENSIVE METABOLIC PANEL STAT 03/12/2020 GE junction Results for 10:04 AM CDT carcinoma (HCC) this procedure are in the results section. ESTIMATED GFR STAT 02/27/2020 Results for 9:15 AM CDT this procedure are in the results section. MAGNESIUM LEVEL STAT 02/27/2020 GE junction Results for 9:15 AM CDT carcinoma (HCC) this procedure are in the results section. HC COMPLETE BLD COUNT W/AUTO STAT 02/27/2020 GE junction Results for DIFF 9:15 AM CDT carcinoma (HCC) this procedure are in the results section. COMPREHENSIVE METABOLIC PANEL STAT 02/27/2020 GE junction Results for 9:15 AM CDT carcinoma (HCC) this procedure are in the results section. FL < 1 HOUR Routine 02/22/2020 Abnormal findings Results fo r 8:47 AM CDT on diagnostic this imaging of other procedure a re parts of digestive in the tract results section. ESOPHAGOGASTRODUODENOSCOPY 02/22/2020 Abnormal findi ngs (EGD) 7:52 AM CDT on diagnostic imaging of other parts of digestive tract Dysphagia, unspecified CT CHEST W CONTRAST ABDOMEN W Routine 02/08/2020 GE junction Results for CONTRAST PELVIS W CONTRAST 10:33 AM CDT carci noma (HCC) this Liver metastases procedure a re (HCC) in the results section. ESTIMATED GFR STAT 02/08/2020 Results for 9:59 AM CDT this procedure are in the results section. MAGNESIUM LEVEL STAT 02/08/2020 GE junction Results for 9:59 AM CDT carcinoma (HCC) this procedure are in the results section. HC COMPLETE BLD COUNT W/AUTO STAT 02/08/2020 GE junction Results for DIFF 9:59 AM CDT carcinoma (HCC) this procedure are in the results section. COMPREHENSIVE METABOLIC PANEL STAT 02/08/2020 GE junction Results for 9:59 AM CDT carcinoma (HCC) this procedure are in the results section. ECG 12-LEAD Routine 01/27/2020 ESTIMATED GFR STAT 01/25/2020 Results for 9:23 AM CDT this procedure are in the results section. MAGNESIUM LEVEL STAT 01/25/2020 GE junction Results for 9:23 AM CDT carcinoma (HCC) this procedure are in the results section. HC COMPLETE BLD COUNT W/AUTO STAT 01/25/2020 GE junction Results for DIFF 9:23 AM CDT carcinoma (HCC) this procedure are in the results section. COMPREHENSIVE METABOLIC PANEL STAT 01/25/2020 GE junction Results for 9:23 AM CDT carcinoma (HCC) this procedure are in the results section. TTE COMPLETE, WO CONTRAST, W Routine 01/12/2020 Encounter fo r Results for DOPPLER (72551) 11:08 AM CDT antineoplastic this chemotherapy procedure are in the results section. FOLATE LEVEL STAT 01/10/2020 GE junction Results for 9:43 AM CDT carcinoma (HCC) this procedure are in the results section. VITAMIN B12 LEVEL STAT 01/10/2020 GE junction Results fo r 9:43 AM CDT carcinoma (HCC) this procedure are in the results section. ESTIMATED GFR STAT 01/10/2020 Results for 9:42 AM CDT this procedure are in the results section. TOTAL IRON BINDING CAPACITY STAT 01/10/2020 GE junction Results for 9:42 AM CDT carcinoma (HCC) this procedure are in the results section. FERRITIN LEVEL STAT 01/10/2020 GE junction Results for 9:42 AM CDT carcinoma (HCC) this procedure are in the results section. MAGNESIUM LEVEL STAT 01/10/2020 GE junction Results for 9:42 AM CDT carcinoma (HCC) this procedure are in the results section. HC COMPLETE BLD COUNT W/AUTO STAT 01/10/2020 GE junction Results for DIFF 9:42 AM CDT carcinoma (HCC) this procedure are in the results section. COMPREHENSIVE METABOLIC PANEL STAT 01/10/2020 GE junction Results for 9:42 AM CDT carcinoma (HCC) this procedure are in the results section. ESTIMATED GFR STAT 12/13/2019 Results for 9:25 AM CDT this procedure are in the results section. MAGNESIUM LEVEL STAT 12/13/2019 GE junction Results for 9:25 AM CDT carcinoma (HCC) this procedure are in the results section. HC COMPLETE BLD COUNT W/AUTO STAT 12/13/2019 GE junction Results for DIFF 9:25 AM CDT carcinoma (HCC) this procedure are in the results section. COMPREHENSIVE METABOLIC PANEL STAT 12/13/2019 GE junction Results for 9:25 AM CDT carcinoma (HCC) this procedure are in the results section. IR PORT PLACEMENT Routine 12/09/2019 Malignant neoplasm Resu lts for 11:36 AM CDT of esophagus, this unspecified procedure are location (HCC) in the Pre-op testing results section. XR CHEST 2 VW Routine 12/07/2019 Malignant neoplasm Results for 12:36 PM CDT of esophagus, this unspecified procedure are location (HCC) in the results section. ESTIMATED GFR Routine 12/07/2019 Results for 12:08 PM CDT this procedure are in the results section. PARTIAL THROMBOPLASTIN TIME Routine 12/07/2019 Malignant garth plasm Results for (PTT) 12:08 PM CDT of esophagus, this unspecified procedure are location (HCC) in the Pre-op testing results section. PROTHROMBIN TIME WITH INR Routine 12/07/2019 Malignant neopl asm Results for 12:08 PM CDT of esophagus, this unspecified procedure are location (HCC) in the Pre-op testing results section. CANCER ANTIGEN 19-9 Routine 12/07/2019 Malignant neoplasm Re sults for 12:08 PM CDT of esophagus, this unspecified procedure are location (HCC) in the results section. CARCINOEMBRYONIC ANTIGEN (CEA) Routine 12/07/2019 Malignant neoplasm Results for 12:08 PM CDT of esophagus, this unspecified procedure are location (HCC) in the results section. COMPREHENSIVE METABOLIC PANEL Routine 12/07/2019 Malignant n eoplasm Results for 12:08 PM CDT of esophagus, this unspecified procedure are location (HCC) in the results section. HC COMPLETE BLD COUNT W/AUTO Routine 12/07/2019 Malignant ne oplasm Results for DIFF 12:08 PM CDT of esophagus, this unspecified procedure are location (HCC) in the results section. CT ABD/PELVIC EXTERNAL STUDY Routine 11/17/2019 Results for 8:38 AM PIPELINE OPERATOR this procedure are in the results section. XR CHEST EXTERNAL STUDY Routine 11/17/2019 Resu lts for 8:11 AM PIPELINE OPERATOR this procedure are in the results section. after 03/17/2019 Results Estimated GFR (03/12/2020 10:04 AM CDT)Only the most recent of7 resultswithin the time period is included. Estimated GFR 86 mL/min/1.73 [facility] Comment: m2 HOSPITAL Catergory Units Interpretation G1 >=90 Normal or high G2 60-89 Mildly decreased G3a 45-59 Mildly to moderately decreas ed G3b 30-44 Moderately to severely decre ased G4 15-29 Severely decreased G5 <15 Kidney failure The eGFR was calculated using the Chronic Kidney Disea se Epidemiology Collaboration (CKD-EPI) equation. Interpretation is based on recommendations of the National Kidney Foundation-Kidney Disease Outcomes Gustavo lity Initiative (NKF-KDOQI) published in 2014. Specimen Performing Organization Address City/State/Zipcode Phone Number [facility] DEPARTMENT OF PATHOLOGY AND [address] [place], [place] [address] GENOMIC MEDICINE [facility] [address] [place] [address] CBC with platelet and differential (03/12/2020 10:04 AM CDT)Only the most recent of7 resultswithin the time period is included. WBC 3.57 (L) 4.50 - 11.00 [facility] k/uL HOSPITAL RBC 3.70 (L) 4.40 - 6.00 [facility] m/[facility] HGB 11.1 (L) 14.0 - 18.0 [facility] g/dL [facility] HCT 33.9 (L) 41.0 - 51.0 % [facility] MCV 91.6 82.0 - 100.0 [facility] MCH 30.0 27.0 - 34.0 pg [facility] MCHC 32.7 31.0 - 37.0 [facility] RDW - SD 63.6 (H) 37.0 - 55.0 fL [facility] MPV 12.0 8.8 - 13.2 fL [facility] Platelet count 79 (L) 150 - 400 k/uL [facility] Nucleated RBC 0.00 /100 WBC [facility] Neutrophils 56.1 39.0 - 69.0 % [facility] Lymphocytes 23.2 (L) 25.0 - 45.0 % [facility] Monocytes 19.0 (H) 0.0 - 10.0 % [facility] Eosinophils 0.8 0.0 - 5.0 % [facility] Basophils 0.6 0.0 - 1.0 % [facility] Immature granulocytes 0.3Comment: 0.0 - 1.0 % [facility] "Immature HOSPITAL granulocytes" (promyelocytes , myelocytes, metamyelocytes ) Specimen Blood Performing Organization Address City/[facility]/Zipcode Phone Number [facility] DEPARTMENT OF PATHOLOGY AND [address] [place], [place] [address] [facility] [address] [place] [address] Magnesium level (03/12/2020 10:04 AM CDT)Only the most recent of6 resultswithin the time period is included. Pathologist Sig nature Magnesium 1.8 1.6 - 2.4 mg/dL [facility] Specimen Blood Performing Organization Address City/State/Zipcode Phone Number [facility] DEPARTMENT OF PATHOLOGY AND [address] [place], [place] [address] [facility] [address] [place] [address] Comprehensive metabolic panel (03/12/2020 10:04 AM CDT)Only the most recent of7 resultswithin the time period is included. Sodium 137 135 - 148 [facility] mEq/L [facility] Potassium 3.6 3.5 - 5.0 [facility] mEq/L [facility] Chloride 101 98 - 112 [facility] mEq/L [facility] CO2 22 (L) 24 - 31 mEq/L [facility] Anion gap 14@ANIO 7 - 15 mEq/L [facility] BUN 12 8 - 23 mg/dL [facility] Creatinine 0.89 0.70 - 1.20 [facility] mg/dL [facility] Glucose 113 (H) 65 - 99 mg/dL [facility] Calcium 9.3 8.8 - 10.2 [facility] mg/dL [facility] Protein 6.3 6.3 - 8.3 [facility] Comment: g/dL HOSPITAL - 4.6-7.0 g/dL 1 week 4.4-7.6 g/dL 7 months-1year 5.1-7.3 g/dL 1-2 years 5.6-7.5 g/dL >3 years 6.0-8.0 g/dL 18-150 6.3-8.3 g/dL Albumin 2.8 (L) 3.5 - 5.0 [facility] g/dL [facility] A/G ratio 0.8 0.7 - 3.8 [facility] Alkaline phosphatase 98 40 - 129 U/L [facility] AST 30 10 - 50 U/L [facility] ALT 23 5 - 50 U/L [facility] Total bilirubin 0.6 0.0 - 1.2 [facility] mg/dL HOSPITAL Specimen Blood Performing Organization Address City/State/Zipcode Phone Number [facility] DEPARTMENT OF PATHOLOGY AND [address] [place], [place] [address] GENOMIC MEDICINE [facility] [address] [place] [address] [place] < 1 Hour (02/22/2020 8:47 AM CDT) Specimen Narrative Performed At EXAMINATION: [place] < 1 HOUR [facility] LOCATION: [place] [address] ENDOSCOPY ROOM 8 PROCEDURE: EGD w/STENT PLACEMENT SCHEDULED TIME: 0800 START TIME: 0747 END TIME: 0847 FLUORO TIME: 2.2 MINS DOSE (mGy): 22 mGy # OF IMAGES: 8 IMPRESSION: Fluoroscopy was requested in the Endosco py Suite. Separate endoscopy report will be issued by the physic bharathi performing the procedure. Procedure Note Interface, Radiology Results Incoming - 02/22/2020 10:20 AM CDT EXAMINATION: [place] < 1 HOUR LOCATION: [place] [address] ENDOSCOPY ROOM 8 PROCEDURE: EGD w/STENT PLACEMENT SCHEDULED TIME: 0800 START TIME: 47 END TIME: 0847 FLUORO TIME: 2.2 MINS DOSE (mGy): 22 mGy # OF IMAGES: 8 IMPRESSION: Fluoroscopy was requested in the Endosco py Suite. Separate endoscopy report will be issued by the physician performing the procedure. 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 Sagittal and coronal computerized reformatte d images were obtained. CT imaging was performed with iterative reconstruction techniques and/or automated exposure co ntrol to reduce radiation dose. COMPARISON: To a previous outside exam ination from 11/17/2019 IMPRESSION: CHEST: Lungs and airways: Patchy peripheral areas of groundgl ass attenuation are present in the posterior segment of the right uppe r lobe. Findings are nonspecific but are concerning for aspiration pneu monia. The left lung is clear. Pleura: No pleural effusion or pneumotho rax. Mediastinum and lymph nodes: No lymphade nopathy. Cardiovascular: The heart size is normal. No pericardi al effusion. The thoracic aorta is normal in caliber. No dissection. Other: A metallic stent is present in the distal esoph dawson extending into the stomach. The stomach is distend ed. ABDOMEN: Liver: Extensive metastatic disease is present, most m arked involving hepatic segments 7 and 8, without definite interval ch yanely from the November examination. Metastatic nodules me asure 5 to 20 mm. Gallbladder/Biliary: The gallbladder is normal. There is no evidence of intra or extrahepatic biliary ductal dil atation. Spleen: The spleen is not enlarged. Pancreas: The pancreas is small. Adrenal Glands: The adrenal glands are u nremarkable. Kidneys: The kidneys are unremarkable. No mass, hydron ephrosis or calculi. Subcentimeter cysts are present in both kidne ys not of clinical significance. Vascular: The abdominal aorta is nonaneu rysmal. Nodes: No enlarged retroperitoneal or me senteric lymphadenopathy. Bowel: No bowel obstruction or inflammatory changes. T he appendix is normal in appearance. Moderate amount of feces is noted in the colon. Ascites/fluid collections: No ascites or fluid collections. PELVIS: No mass, fluid collection or significant adenopathy. MUSCULOSKELETAL: No suspicious osseous lesions. SUMMARY: 1.Metastatic disease in the liver. 2.Placement of a metallic stent across t he GE junction. [id number] Procedure Note Hm Interface, Radiology Results Incoming - 02/08/2020 11:25 AM CDT EXAMINATION: CT CHEST W CONTRAST ABDOMEN W CONTRAST PELVIS W CONTRAST CLINICAL HISTORY: 69 years Male C16.0 M alignant neoplasm of cardia, C78.7 Secondary malignant neoplasm of liver and intrahepatic bile duct, GE adenocarcinoma TECHNIQUE: Multiple axial images of the chest, abdomen, and pelvis were obtained following intravenous administration of iodinated contrast. Sagittal and coronal computerized reformatted images were obtained. CT imaging was performed with iterative reconstruction techniques and/or automat ed exposure control to reduce radiation dose. COMPARISON: To a previous outside exami nation from 11/17/2019 IMPRESSION: CHEST: Lungs and airways: Patchy peripheral are as of groundglass attenuation are present in the posterior segment of the right upper lobe. Findings are nonspecific but are concerning for aspiration pneumonia. The left lung is clear. Pleura: No pleural effusion or pneumotho rax. Mediastinum and lymph nodes: No lymphade nopathy. Cardiovascular: The heart size is normal . No pericardial effusion. The thoracic aorta is normal in caliber. No dissection. Other: A metallic stent is present in th e distal esophagus extending into the stomach. The stomach is distended. ABDOMEN: Liver: Extensive metastatic disease is p resent, most marked involving hepatic segments 7 and 8, without definite interval change from the November examination. Metastatic nodules measure 5 to 20 mm. Gallbladder/Biliary: The gallbladder is normal. There is no evidence of intra or extrahepatic biliary ductal dilatation. Spleen: The spleen is not enlarged. Pancreas: The pancreas is small. Adrenal Glands: The adrenal glands are u nremarkable. Kidneys: The kidneys are unremarkable. N o mass, hydronephrosis or calculi. Subcentimeter cysts are present in both kidneys not of clinical significance. Vascular: The abdominal aorta is nonaneu rysmal. Nodes: No enlarged retroperitoneal or me senteric lymphadenopathy. Bowel: No bowel obstruction or inflammat ory changes. The appendix is normal in appearance. Moderate amount of feces is noted in the colon. Ascites/fluid collections: No ascites or fluid collections. PELVIS: No mass, fluid collection or significant adenopathy. MUSCULOSKELETAL: No suspicious osseous lesions. SUMMARY: 1.Metastatic disease in the liver. 2.Placement of a metallic stent across t he GE junction. [id number] Performing Organization Address City/State/Zipcode Phone Number [facility] [address] [place] [address] ECG 12 lead (01/27/2020) Narrative Performed At This result has an attachment that is no t available. Transthoracic Echocardiogram Complete, (w Contrast, Strain and 3D if needed) (01/12/2020 11:08 AM CDT) Specimen Narrative Performed At This result has an attachment that is no t available. CUPID Echocardiography R eport [address]Name: SAGRARIO CARPENTER.ID: [id number] .Date: 01/12/2020 Refer.MD: POLLO CARPIO MD Exam Time: 9:07:00 AM Study Type:Routine Echo Height: 73in Weight: 159lb BSA: 1.95 m2 Age: 9 1950,69Y Sex: MALE BP: 115/67 HR: 69 bpm Sonogrphr: MIAN Rosa Pat. Stat.:Outpatient Room: [facility] Study Status:Final Echo Event ID:[id number] Order ID: [id number] Reason for Study:chemotherapy Procedures: 2D Echo, Colorflow Doppler, Strain Race: C SUMMARY: LV EF is normal. Estimated EF is 55-59%. RV systolic function is normal. Estimated PA systolic pressure is 26-31 mmHg, assuming a mean RAP of 5-10 mmHg. FINDINGS: LV: LV EF is normal. Overall wall motion is n ormal. Estimated EF is 55-59%. Normal average LV global patricia gitudinal strain at -18.4%. RV: RV size is normal. RV systolic function i s normal. LA: LA volume is severely enlarged. RA: RA size is normal. AO: Aortic root diameter is normal. SANDER: No pericardial effusion. AV: No structural AV abnormalities noted. MV: No structural MV abnormalities noted. A t race of mitral regurgitation. PV: No structural PV abnormalities noted. TV: No structural TV abnormalities noted. Mil d tricuspid regurgitation Berrios: Normal diastolic function and LV filling p ressures. Other: Estimated PA systolic pressure is 26-31 mm Hg, assuming a mean RAP of 5-10 mmHg. MEASUREMENTS: 2D Parasternal [place] Ao An 2.4 cm LV%fs 30 % Ao Rtd 3.4 cm Index 1.7 cm/m2 LVPWd 0.96 cm IVSd 1.1 cm RWT 0.4 LVIDd 4.9 cm Index 2.5 cm/m2 LV Mass 186 g (122-174) LVIDs 3.4 cm LVM In dex 96 g/m LA Sng Plane LA Area 27 cm (8.8-23.4) LA Vol 93 ml Index 48 ml/m2 LA LngAx 6 cm LVOT Stroke Vol LVOT 2.3 cm LVOT LVOT Area 4.2 cm DOPPLE R LVOT Stroke Vol LVOT TVI 18 cm LVOT CI 2.4 l/m/m LVOT SV 76 ml HR 61 bpm LVOT CO 4.6 l/min LVOT SVi 39 ml/m Signed 01/13/2020 11:28 AM David Napier M.D. Procedure Note Interface, Radiology Results In - 2019 11:28 AM CDT Echocardiography Report [address] [place] [address] Pat.Name: SAGRARIO CARPENTER Pat.I D: [id number] .Date: 01/12/2020 Refer .MD: POLLO CARPIO MD Exam Time: 9:07:00 AM Study Type:Routine Echo Height: 73in Weigh t: 159lb BSA: 1.95 m2 Age: 9 1950,69Y Sex: MALE BP: 115/67 HR: 69 bpm Sonog rphr: Marcella Peterson [facility] Pat. Stat.:Outpatient Room: [facility] Study Status:Final Echo Event ID:[id number] Order ID: [id number] Reason for Study:chemotherapy Procedures: 2D Echo, Colorflow Doppler, Strain Race: C SUMMARY: LV EF is normal. Estimated EF is 55-59%. RV systolic function is normal. Estimated PA systolic pressure is 26-31 mmHg, assuming a mean RAP of 5-10 mmHg. FINDINGS: LV: LV EF is normal. Overall wall motion is normal. Estimated EF is 55-59%. Normal average LV g lobal longitudinal strain at -18.4%. RV: RV size is normal. RV systolic function is normal. LA: LA volume is severely enlarged . RA: RA size is normal. AO: Aortic root diameter is normal . SANDER: No pericardial effusion. AV: No structural AV abnormalities noted. MV: No structural MV abnormalities noted. A trace of mitral regurgitation. PV: No structural PV abnormalities noted. TV: No structural TV abnormalities noted. Mild tricuspid regurgitation Berrios: Normal diastolic function and LV filling pressures. Other: Estimated PA systolic pressure is 26-31 mmHg, assuming a mean RAP of 5-10 mmHg. MEASUREMENTS: 2D Parasternal [place] Ao An 2.4 cm LV%f s 30 % Ao Rtd 3.4 cm Inde x 1.7 cm/m2 LVPWd 0.96 cm IVSd 1.1 cm RWT 0.4 LVIDd 4.9 cm Inde x 2.5 cm/m2 LV Mass 186 g (122-174) LVIDs 3.4 cm LVM Index 96 g/m LA Sng Plane LA Area 27 cm (8.8-23.4) L A Vol 93 ml Index 48 ml/m2 LA LngAx 6 cm LVOT Stroke Vol LVOT 2.3 cm LVOT LVOT Area 4.2 cm DOPPLER LVOT Stroke Vol LVOT TVI 18 cm LVOT CI 2.4 l/m/m LVOT SV 76 ml HR 61 bpm LVOT CO 4.6 l/min LVOT SVi 39 ml/m Signed 01/13/2020 11:28 AM David Napier M.D. Performing Organization Address City/[facility]/Zipcode Phone Number [facility] [address] [place] [address] Folate level (01/10/2020 9:43 AM CDT) Pathologist Sig nature Folate 10.8 4.8 - 24.2 ng/mL [facility] Specimen Serum Performing Organization Address [facility] Services[facility] Phone Number [facility] DEPARTMENT OF PATHOLOGY AND [address] [place] [address] [phone] [address] Vitamin B12 level (01/10/2020 9:43 AM CDT) Vitamin B12 532 211 - 946 [facility] Comment: pg/mL HOSPITAL Significant overlap exists between normal and deficien cy states. However, most patients with deficiencies will have Ser um B12 <200 pg/mL. Specimen Serum Performing Organization Address [facility] Phone Number [facility] DEPARTMENT OF PATHOLOGY AND [address] [place] [address] [phone] [address] Total iron binding capacity (01/10/2020 9:42 AM CDT) Pathologist Sig nature Iron level 15 (L) 59 - 158 ug/dL [facility] Iron binding capacity 178 (L) 200 - 400 ug/dL [facility] % Saturation 8.4 (L) 20.0 - 40.0 % [facility] Specimen Blood Performing Organization Address [facility] Services[facility]y Phone Number [facility] DEPARTMENT OF PATHOLOGY AND [address] [place] [address] [phone] [address] Ferritin level (01/10/2020 9:42 AM CDT) Pathologist Sig nature Ferritin level 228 30 - 400 ng/mL [facility] Specimen Blood Performing Organization Address [facility] Phone Number [facility] DEPARTMENT OF PATHOLOGY AND [address] [place] [address] [phone] [address] IR Port Placement (12/09/2019 11:36 AM CDT) Specimen Narrative Performed At EXAMINATION: IR PORT PLACEMENT HM [facility] CLINICAL HISTORY: C15.9 Malignant neoplasm of esopha peter unspecified, Z01.818 Encounter for other preprocedura l examination, esophageal cancer COMPARISON: None. PROCEDURE: Venous port placement Procedural Personnel Attending physician(s): Chuy choudhury MD Pre-procedure diagnosis: Esophageal canc er Post-procedure diagnosis: Same Indication: Administration of chemothera py Additional clinical history: None Complications: No immediate complication s. IMPRESSION: Insertion of right-sided power-injectable single-lumen tunneled chest port, with catheter tip in the expected location of the cavoatrial junction. Plan: The port may be used immediately. PROCEDURE SUMMARY: - Venous access with ultrasound guidance - Tunneled port insertion under fluorosc opic guidance - Additional procedure(s): None Pre-procedure History and imaging of central venous ac cess reviewed (QCDR): Yes Consent: Informed consent for the procedure including risks, benefits and alternatives was obtained and time-out was perform ed prior to the procedure. Preparation (MIPS): The site was prepared and draped u sing all elements of maximal sterile barrier technique including sterile gloves, sterile gown, cap, mask, large sterile sheet, sterile ultrasou nd probe cover, hand hygiene and cutaneous antisepsis with 2% chlorhexidine. Medical reason for site preparation exce ption (MIPS): Not applicable Anesthesia/sedation Level of anesthesia/sedation: Moderate s edation (conscious sedation) Anesthesia/sedation administered by: Independent train ed observer under attending supervision with continuous monitoring of th e patients level of consciousness and physiologic status Total intra-service sedation time (minut es): 43 Access Local anesthesia was administered. The vessel was sono graphically evaluated and determined to be patent. Real time ultra sound was used to visualize needle entry into the vessel and a permanent image was not stored. Vein accessed: Internal jugular vein Access technique: Micropuncture set with 21 gauge needle Port placement An incision was made at the upper chest, a pocket was created, and the catheter was tunneled subcutaneously to the venous acc ess site and trimmed to appropriate length. The port was inserted i nto the pocket and the catheter was advanced via a peel-staci y sheath into the vein under fluoroscopic guidance. The port was not sutured into the pocket. Catheter tip location was flu oroscopically verified and a permanent image was store d. Port placed: [employer] SmartPort Catheter size (Gabonese): 6 Catheter flush: Heparin (100 units/mL) Closure The access site and incision were closed and sterile d ressing(s) were applied. Access site closure technique: Tissue ad hesive Incision closure technique: Absorbable s uture and tissue adhesive Patient discharged from procedure suite with device accessed: No Contrast Contrast agent: None Contrast volume (mL): 0 Radiation Dose Reference air kerma (mGy): 7 Additional Details Additional description of procedure: Non e Equipment details: None Specimens removed: None Estimated blood loss (mL): Less than 10 Standardized report: [email or web address] [facility]-[id number] Procedure Note Hm Interface, Radiology Results Incoming - 12/09/2019 2:59 PM CDT EXAMINATION: IR PORT PLACEMENT CLINICAL HISTORY: C15.9 Malignant neopl asm of esophagus unspecified, Z01.818 Encounter for other preprocedural examination, esophageal cancer COMPARISON: None. PROCEDURE: Venous port placement Procedural Personnel Attending physician(s): Chuy choudhury MD Pre-procedure diagnosis: Esophageal canc er Post-procedure diagnosis: Same Indication: Administration of chemothera py Additional clinical history: None Complications: No immediate complication s. IMPRESSION: Insertion of right-sided pow er-injectable single-lumen tunneled chest port, with catheter tip in the expected location of the cavoatrial junction. Plan: The port may be used immediately. PROCEDURE SUMMARY: - Venous access with ultrasound guidance - Tunneled port insertion under fluorosc opic guidance - Additional procedure(s): None Pre-procedure History and imaging of central venous ac cess reviewed (QCDR): Yes Consent: Informed consent for the proced ure including risks, benefits and alternatives was obtained and time-out was performed prior to the procedure. Preparation (MIPS): The site was prepare d and draped using all elements of maximal sterile barrier technique including sterile gloves, sterile gown, cap, mask, large sterile sheet, sterile ultrasound probe cover, hand hygiene and cutaneous antisepsis with 2% chlorhexidine. Medical reason for site preparation exce ption (MIPS): Not applicable Anesthesia/sedation Level of anesthesia/sedation: Moderate s edation (conscious sedation) Anesthesia/sedation administered by: Ind ependent trained observer under attending supervision with continuous monitoring of the patients level of consciousness and physiologic status Total intra-service sedation time (minut es): 43 Access Local anesthesia was administered. The v essel was sonographically evaluated and determined to be patent. Real time ultrasound was used to visualize needle entry into the vessel and a permanent image was not stored. Vein accessed: Internal jugular vein Access technique: Micropuncture set with 21 gauge needle Port placement An incision was made at the upper chest, a pocket was created, and the catheter was tunneled subcutaneously to the venous access site and trimmed to appropriate length. The port was inserted into the pocket and the catheter was advanced via a peel-away sheath into the vein under fluoroscopic guidance. The port was not sutured into the pocket. Catheter tip location was fluoroscopically verified and a permanent image was stored. Port placed: [employer] SmartPort Catheter size (Gabonese): 6 Catheter flush: Heparin (100 units/mL) Closure The access site and incision were closed and sterile dressing(s) were applied. Access site closure technique: Tissue ad hesive Incision closure technique: Absorbable s uture and tissue adhesive Patient discharged from procedure suite with device accessed: No Contrast Contrast agent: None Contrast volume (mL): 0 Radiation Dose Reference air kerma (mGy): 7 Additional Details Additional description of procedure: Non e Equipment details: None Specimens removed: None Estimated blood loss (mL): Less than 10 Standardized report: [email or web address] [facility]-[id number] Performing Organization Address City/State/Zipcode Phone Number [facility] [address] [place] [address] XR Chest 2 Vw (12/07/2019 12:36 PM CDT) Specimen Narrative Performed At EXAMINATION: XR CHEST 2 VW [facility] CLINICAL HISTORY: C15.9 Malignant neoplasm of esopha peter unspecified, esopahgeal cancer COMPARISON: None IMPRESSION: 1.Examination was performed with nipple markers. 2.No pulmonary infiltrates or nodules ar e seen. 3.Heart size within normal limits. Vesse ls are not congested. [id number] Procedure Note Interface, Radiology Results Incoming - 12/07/2019 12:41 PM CDT EXAMINATION: XR CHEST 2 VW CLINICAL HISTORY: C15.9 Malignant neopl asm of esophagus unspecified, esopahgeal cancer COMPARISON: None IMPRESSION: 1.Examination was performed with nipple markers. 2.No pulmonary infiltrates or nodules ar e seen. 3.Heart size within normal limits. Vesse ls are not congested. [id number] Performing Organization Address City/[facility]/Zipcode Phone Number [facility] [address] [place] [phone] Cancer antigen 19-9 (12/07/2019 12:08 PM CDT) Pathologist [facility] CA 19-9 1 0 - 35 U/mL [facility] Comment: [facility] The Michael Sonido 8000 CA19-9 immunoassay was used. Results obtained with different assay methods or kits should not be used interchangeably and may be differen t. Specimen Blood Performing Organization Address [facility] Services[facility] Phone Number [facility] DEPARTMENT OF PATHOLOGY AND [address] [place] [address] [phone] [address] Partial thromboplastin time, activated (12/07/2019 12:08 PM CDT) Pathologist [facility] PTT 27.8 23.0 - 36.0 [facility] Comment: [facility] PTT therapeutic range for unfractionated heparin is 61.0-112.0 seconds which corresponds to Anti-Xa 0.3-0.7 U/ml. Specimen Blood Performing Organization Address [facility] Phone Number [facility] DEPARTMENT OF PATHOLOGY AND [address] [place] [address] [phone] [address] Prothrombin time with INR (12/07/2019 12:08 PM CDT) Pathologist [facility] Prothrombin time 13.3 11.5 - 14.5 [facility] INR 1.0 [place] Comment: [place] [facility] International Normalized Ratio (INR) is a [facility] HOSPITAL monitoring tool for patients who are stable on oral anticoagulant therapy. An INR of 2.0-3.0 is suggested for deep vein thrombosis/pulmonary embolism. Specimen Blood Performing Organization Address [facility] Phone Number [facility] DEPARTMENT OF PATHOLOGY AND [address] [place] [address] [phone] [address] Carcinoembryonic antigen (CEA) (12/07/2019 12:08 PM CDT) CEA 3.3 0.0 - 3.8 [facility] Comment: ng/mL HOSPITAL Reference range for heavy smokers: 0.0 - 5.5 ng/mL The MICHAEL Sonido 8000 CEA immunoassay was used. Results obtained with different assay methods or kits should not be used interchangeably and may be differen t. Specimen Serum Performing Organization Address [facility] Services[facility] Phone Number [facility] DEPARTMENT OF PATHOLOGY AND [address] [place] [address] [phone] [address] [address] Abd/Pelvic External Study (11/17/2019 8:38 AM PIPELINE OPERATOR) Specimen Narrative Performed At This exam was not acquired at a Methodis t facility and has not been RADIANT interpreted by a Religious Provider. T he exam was imported into our imaging system. Performing Organization Address [facility] Phone Number HM RADIANT [address] [place] [address] XR Chest External Study (11/17/2019 8:11 AM PIPELINE OPERATOR) Specimen Narrative Performed At This exam was not acquired at a Methodis t facility and has not been RADIANT interpreted by a Religious Provider. T he exam was imported into our imaging system. Performing Organization Address [facility] Services[facility] Phone Number HM RADIANT [address] [place] [address] after 03/17/2019 Advance Directives For more information, please contact: [phone] Type Date Recorded Patient Manager Creative Explanati on Advance Directives, Living Will 02/22/2020 7:14 AM and Medical Power of Safety Technician
--- OUTSIDE RECORDS SUMMARY | 2020-03-17 15:06 | XMS REPORT | Clinical Summary ---
:1950 Author Organization [facility] Address [address] [place] [address] Care Team Providers Name Role Phone Carlos Arredondo MD Primary Care Provider Allergies Active Allergy Reactions Severity Noted Date Comments Sulfur Other (See Comments) 12/27/2019 Flu lik e symptoms Medications Medication Sig Dispensed Refills Start Date End Date Status lisinopriL Take 5 mg by 0 Active (PRINIVIL,ZESTRIL) 5 MG mouth daily. tablet ondansetron (ZOFRAN-ODT) Take 8 mg by 0 Active 8 MG disintegrating mouth 2 (two) tablet times daily as needed for Nausea. combination formulary 0 Active medication aspirin 81 MG EC tablet Take 81 mg by 0 Active mouth daily. pantoprazole (PROTONIX) Take 1 tablet 180 tablet 0 12/30/2019 Active 40 MG tablet (40 mg total) by mouth 2 (two) times daily. Active Problems Problem Noted Date Hematemesis 12/27/2019 Encounters Date Type Specialty Care Team Description 12/27/2019 Anesthesia Event Gastroenterology Noel Gama CRNA 12/27/2019 Surgery Gastroenterology Abdiel Ford UPPER EN DOSCOPY 12/27/2019 Hospital General Internal Obey Tsai, Hemate mesis, presence of nausea not specified; - Encounter Medicine MD Stefano Acute upper GI bleed; 12/30/2019 Victor M Laurent blood los s anemia; Fabio Malignant neopl asm of lower third of esophagus (HCC) MD Jono Johns Kimberly Ann, MD 12/27/2019 Travel 12/26/2019 Telephone Critical Care Medicine Obey Tsai, transfer MD Stefano 12/20/2019 Surgery Gastroenterology Julia Felton MD ENDOSCOPY,WALL STENT 12/20/2019 Anesthesia Event Gastroenterology Henrry Nix MD 12/20/2019 Hospital Gastroenterology Julia Felton MD 12/15/2019 Hospital Pre-Admission Testing Julia Felton MD 12/15/2019 Travel after 03/17/2019 Social History Tobacco Use Types Packs/Day Years Used Date Current Every Day Smoker Smokeless Tobacco: Never Used Comments: 1 cigar daily Alcohol Use Drinks/Week oz/Week Comments Yes very rarely Alcohol Habits Answer Date Recorded How often do you have a drink containing alcohol? Never 12/15/2019 How many drinks containing alcohol do you [...] Travel End No recent travel history available. Last Filed Vital Signs Vital Sign Reading Time Taken Blood Pressure 110/77 12/30/2019 7:50 AM CDT Pulse 86 12/30/2019 7:50 AM CDT Temperature 36.9 C (98.5 F) 12/30/2019 7:50 AM CDT Respiratory Rate 18 12/30/2019 7:50 AM CDT Oxygen Saturation 95% 12/30/2019 7:50 AM CDT Inhaled Oxygen Concentration - - Weight 72.8 kg (160 lb 6.4 oz) 12/30/2019 6:00 AM CDT Height 185.4 cm (6' 1") 12/27/2019 1:30 AM CDT Body Mass Index 21.16 12/30/2019 6:00 AM CDT Plan of Treatment Not on file Implants Implanted Type Area Mathematics Faculty Member Device Shelf Model / Identifier Expiration Serial / Lot Date Stent Esoph Wallflx [id number] - [id number] IMPL[employer] 08/18/2020 [id number] / Implanted: Qty: 1 on 12/20/2019 by Julia Felton MD / [id number] Procedures Procedure Name Priority Date/Time Associated Diagnosis Comme nts REPORT OF PROCEDURE - 01/02/2020 3:40 ENDOSCOPY SCAN PM CDT RHYTHM STRIP - SCAN 01/02/2020 3:40 PM CDT TRANSFUSION SERVICE 12/30/2019 6:01 REPORT - SCAN PM CDT CBC W/PLT COUNT & Routine 12/30/2019 3:54 Result s for this AUTO DIFFERENTIAL AM CDT procedure are in the results section. CBC W/PLT COUNT & Routine 12/30/2019 3:54 Result s for this AUTO DIFFERENTIAL AM CDT procedure are in the results section. TRANSFUSION SERVICE 12/29/2019 5:50 REPORT - SCAN PM CDT CBC (HEMOGRAM ONLY) Routine 12/29/2019 12:37 Resu lts for this PM CDT procedure are i n the results section. CBC (HEMOGRAM ONLY) Routine 12/29/2019 5:43 Resu lts for this AM CDT procedure are i n the results section. BASIC METABOLIC PANEL Routine 12/29/2019 5:42 Re sults for this (7) AM CDT procedure are i n the results section. CBC (HEMOGRAM ONLY) Routine 12/29/2019 12:07 Resu lts for this AM CDT procedure are i n the results section. PREPARE LEUKO-REDUCED Routine 12/28/2019 11:54 Re sults for this RBC PM CDT procedure are i n the results section. CBC (HEMOGRAM ONLY) Routine 12/28/2019 6:01 Resu lts for this PM CDT procedure are i n the results section. TRANSFUSION SERVICE 12/28/2019 5:51 REPORT - SCAN PM CDT CBC (HEMOGRAM ONLY) Routine 12/28/2019 12:42 Resu lts for this PM CDT procedure are i n the results section. POCT-GLUCOSE METER Routine 12/28/2019 5:30 Resul ts for this AM CDT procedure are i n the results section. BASIC METABOLIC PANEL Routine 12/28/2019 4:25 Re sults for this (7) AM CDT procedure are i n the results section. CBC (HEMOGRAM ONLY) Routine 12/28/2019 4:25 Resu lts for this AM CDT procedure are i n the results section. CBC (HEMOGRAM ONLY) Routine 12/27/2019 11:33 Resu lts for this PM CDT procedure are i n the results section. POCT-GLUCOSE METER Routine 12/27/2019 11:32 Resul ts for this PM CDT procedure are i n the results section. POCT-GLUCOSE METER Routine 12/27/2019 6:14 Resul ts for this PM CDT procedure are i n the results section. POCT-GLUCOSE METER Routine 12/27/2019 3:34 Resul ts for this PM CDT procedure are i n the results section. CBC (HEMOGRAM ONLY) Routine 12/27/2019 3:25 Resu lts for this PM CDT procedure are i n the results section. REPORT OF PROCEDURE - 12/27/2019 12:49 ENDOSCOPY URL PM CDT UPPER ENDOSCOPY 12/27/2019 11:00 Gastrointestinal AM CDT hemorrhage, unspecified gastrointestinal hemorrhage type CBC (HEMOGRAM ONLY) Routine 12/27/2019 8:25 Resu lts for this AM CDT procedure are i n the results section. TRANSFUSE Routine 12/27/2019 7:19 LEUKO-REDUCED RED AM CDT BLOOD CELLS HEMOGLOBIN A1C Routine 12/27/2019 4:55 Results f or this AM CDT procedure are i n the results section. BLOOD CULTURE Routine 12/27/2019 4:54 Results fo r this AM CDT procedure are i n the results section. ABORH, MANUAL STAT 12/27/2019 3:11 Results fo r this AM CDT procedure are i n the results section. BLOOD CULTURE Routine 12/27/2019 2:53 Results fo r this AM CDT procedure are i n the results section. TYPE AND SCREEN, STAT 12/27/2019 2:52 Results for this AUTOMATED AM CDT procedure are i n the results section. CBC W/PLT COUNT & Routine 12/27/2019 2:40 Result s for this AUTO DIFFERENTIAL AM CDT procedure are in the results section. PROTHROMBIN TIME/INR Routine 12/27/2019 2:40 Res ults for this AM CDT procedure are i n the results section. LACTIC ACID, VENOUS Routine 12/27/2019 2:40 Resu lts for this AM CDT procedure are i n the results section. MAGNESIUM Routine 12/27/2019 2:40 Results for this AM CDT procedure are i n the results section. COMPREHENSIVE Routine 12/27/2019 2:40 Results fo r this METABOLIC PANEL AM CDT procedure ar e in the results section. CBC W/PLT COUNT & Routine 12/27/2019 2:40 Result s for this AUTO DIFFERENTIAL AM CDT procedure are in the results section. XR CHEST 1 VIEW STAT 12/27/2019 2:28 Results for this PORTABLE/BEDSIDE AM CDT procedure a re in the results section. REPORT OF PROCEDURE - 12/20/2019 11:35 ENDOSCOPY URL AM CDT FL FLUORO Routine 12/20/2019 11:30 Results for this NON-SPECIFIC UP TO 1 AM CDT procedu re are in HOUR the results section. PROCEDURE W/ C-ARM 12/20/2019 11:00 Dysphagia, unspeci fied AM CDT type Malignant neoplasm of esophagus, unspecified location (HCC) Special Needs (C-ARM) UPPER ENDOSCOPY,WALL STENT 12/20/2019 11:00 AM C DT Dysphagia, unspecified type Malignant neoplasm of esophagus, unspecified location (HCC) Special Needs (C-ARM) after 03/17/2019 Results EKG-SCANNED (01/02/2020 3:40 PM CDT) Narrative Performed At This result has an attachment that is no t available. RHYTHM STRIP - SCAN (01/02/2020 3:40 PM CDT) Narrative Performed At This result has an attachment that is no t available. TRANSFUSION SERVICE REPORT - SCAN (12/30/2019 6:01 PM CDT)Only the most recent of3 resultswithin the time period is included. Narrative Performed At This result has an attachment that is no t available. CBC with platelet count + automated diff (12/30/2019 3:54 AM CDT)Only the most recent of2 resultswithin the time period is included. WBC 4.8 3.5 - 10.5 K/L [facility] RBC 2.58 (L) 4.63 - 6.08 M/L [facility] Hemoglobin 7.5 (L) 13.7 - 17.5 GM/DL [facility] Hematocrit 22.9 (L) 40.1 - 51.0 % [facility] MCV 88.8 79.0 - 92.2 fL [facility] MCH 29.1 25.7 - 32.2 pg [facility] MCHC 32.8 32.3 - 36.5 GM/DL [facility] RDW 12.9 11.6 - 14.4 % [facility] Platelets 160 150 - 450 K/CU MM [facility] MPV 11.0 9.4 - 12.4 fL [facility] nRBC 0 0 - 0 /100 WBC [facility] % Neutros 42 % [facility] % Lymphs 29 % [facility] % Monos 19 % [facility] % Eos 10 % [facility] % Baso 0 % [facility] # Neutros 2.00 1.78 - 5.38 K/L [facility] # Lymphs 1.36 1.32 - 3.57 K/L [facility] # Monos 0.88 (H) 0.30 - 0.82 K/L [facility] # Eos 0.48 0.04 - 0.54 K/L [facility] # Baso 0.02 0.01 - 0.08 K/L [facility] Immature Granulocytes-Relative 0 0 - 1 % C [facility] Specimen Blood Performing Organization Address City/State/Zipcode Phone Number [facility] [address] [place] [address] CENTER CBC (Hemogram only) (12/29/2019 12:37 PM CDT)Only the most recent of9 results within the time period is included. WBC 5.1 3.5 - 10.5 K/L [facility] RBC 2.58 (L) 4.63 - 6.08 M/L [facility] Hemoglobin 7.7 (L) 13.7 - 17.5 GM/DL [facility] Hematocrit 23.5 (L) 40.1 - 51.0 % [facility] MCV 91.1 79.0 - 92.2 fL [facility] MCH 29.8 25.7 - 32.2 pg [facility] MCHC 32.8 32.3 - 36.5 GM/DL [facility] RDW 13.0 11.6 - 14.4 % [facility] Platelets 137 (L) 150 - 450 K/CU MM [facility] MPV 10.8 9.4 - 12.4 fL [facility] nRBC 0 0 - 0 /100 WBC [facility] Specimen Blood Performing Organization Address City/State/Zipcode Phone Number [facility] [address] [place] [address] CENTER Basic Metabolic Panel (12/29/2019 5:42 AM CDT)Only the most recent of2 results within the time period is included. Sodium 134 (L) 136 - 145 meq/L [facility] Potassium 3.5 3.5 - 5.1 meq/L [facility] Chloride 105 98 - 107 meq/L [facility] CO2 26 22 - 29 meq/L [facility] BUN 7 7 - 21 mg/dL [facility] Creatinine 0.68 0.57 - 1.25 mg/dL [facility] Glucose 108 (H) 70 - 105 mg/dL [facility] Calcium 7.5 (L) 8.4 - 10.2 mg/dL [facility] EGFR 115Comment: ESTIMATED GFR IS mL/min/1.73 sq m CH I [facility] NOT ACCURATE CREATININE ME DICAL CENTER CLEARANCE IN PREDICTING GLOMERULAR FILTRATION RATE. ESTIMATED GFR IS NOT APPLICABLE FOR DIALYSIS PATIENTS. Specimen Blood Narrative Performed At [employer] Mechanic Helper [place] - BRENDA Lyon [facility] Performing Organization Address [facility] Cent[facility]ode Phone Number [facility] MED[facility] [address] [place] [address] CENTER Prepare Leuko-Red RBC (12/28/2019 11:54 PM CDT) CROSSMATCH COMPATIBLE SAFETRACE TX Unit ABO A Neg SAFETRACE TX UNIT NUMBER [id number] SAFETRACE TX Status WORK IN PROGRESS SAFETRACE TX Blood Bank Product RED BLOOD CELLS SAFETRACE TX PRODUCT CODE [id number] SAFETRACE TX CROSSMATCH COMPATIBLE SAFETRACE TX Unit ABO A Neg SAFETRACE TX UNIT NUMBER [id number] SAFETRACE TX Status TX_TIMEINCHART SAFETRACE TX Blood Bank Product RED BLOOD CELLS SAFETRACE TX PRODUCT CODE [id number] SAFETRACE TX CROSSMATCH COMPATIBLE SAFETRACE TX Unit ABO A Neg SAFETRACE TX UNIT NUMBER [id number] SAFETRACE TX Status WORK IN PROGRESS SAFETRACE TX Blood Bank Product RED BLOOD CELLS SAFETRACE TX PRODUCT CODE [id number] SAFETRACE TX CROSSMATCH COMPATIBLE SAFETRACE TX Unit ABO A Neg SAFETRACE TX UNIT NUMBER [id number] SAFETRACE TX Status WORK IN PROGRESS SAFETRACE TX Blood Bank Product RED BLOOD CELLS SAFETRACE [place] PRODUCT CODE [id number] SAFETRACE [place] Specimen Other Performing Organization Address [facility] Phone Number SAFETRACE [place] POC-Glucose meter (12/28/2019 5:30 AM CDT)Only the most recent of4 results within the time period is included. POC-Glucose Meter 112 (H)Comment: : TESTED 70 - 110 mg/dL [facility] [address] [facility], [id number]: [employer] Mechanic Helper/Termite Treater ID = [id number] for MONSERRAT HYMAN Specimen Blood Performing Organization Address [facility]/Zipcode Phone Number [facility] MEDICAL [address] [place] [address] CENTER REPORT OF PROCEDURE - ENDOSCOPY URL (12/27/2019 12:49 PM CDT) Narrative Performed At This result has an attachment that is no t available. Transfuse Leuko-Red RBC (12/27/2019 7:19 AM CDT)Hemoglobin A1c (12/27/2019 4:55 AM CDT) Hemoglobin A1C 5.5 4.3 - 6.1 % [facility] Specimen Blood Performing Organization Address City/[facility]/Zipcode Phone Number [address] [address] CENTER Blood Culture - Routine (Left Venipuncture) (12/27/2019 4:54 AM CDT)Only the most recent of2 resultswithin the time period is included. Result No growth in 5 days [facility] Specimen Blood Performing Organization Address [facility] Centerconm Phone Number [address] [address] CENTER ABORH, manual (12/27/2019 3:11 AM CDT) ABO Grouping A [facility] Rh Factor NEG [facility] Specimen Blood Performing Organization Address [facility] Center[facility] Phone Number [address] [address] Type and screen, automated (12/27/2019 2:52 AM CDT) ABO/RH AUTOMATED (BEAKER) A NEGATIVE [facility] Ab Scrn NEGATIVE [facility] Specimen Blood Performing Organization Address [facility] Centercode Phone Number [address] [address] Lactic acid, venous (12/27/2019 2:40 AM CDT) Lactate, Venous 1.75 0.50 - 2.20 mmol/L [facility] Specimen Blood Narrative Performed At [employer] Mechanic Helper ID - BS [facility] MED [facility] CENTER Performing Organization Address City/[facility] Centercode Phone Number [address] [address] CENTER Prothrombin time/INR (12/27/2019 2:40 AM CDT) Protime 15.6 (H) 11.9 - 14.2 seconds [facility] INR 1.3 <=5.9 [facility] Specimen Blood Narrative Performed At Effective 02/09/2019: PT Reference Range [facility] Change New: 11.9-14.2Previous: 11.7-14.7 RECOMMENDED COUMADIN/WARFARIN INR THERAPY RANGES STANDARD DOSE: 2.0-3.0Includes: PROPHYLAXIS for venous thrombosis, systemic embolization; TREATMENT for venous thrombosis and/or pulmonary embolus. HIGH RISK: Target INR is 2.5-3.5 for patients wiht mechanical heart valves. Performing Organization Address City/State/Zipcode Phone Number [address] [address] CENTER Magnesium (12/27/2019 2:40 AM CDT) Magnesium 1.7 1.6 - 2.6 mg/dL [facility] Specimen Blood Narrative Performed At [employer] Mechanic Helper ID - BS [facility] Performing Organization Address City/State/Zipcode Phone Number [address] [address] CENTER Comprehensive metabolic panel (12/27/2019 2:40 AM CDT) Protein, Total 4.0 (L) 6.0 - 8.3 gm/dL [facility] Albumin 2.1 (L) 3.5 - 5.0 g/dL [facility] Alkaline Phosphatase 77 40 - 150 U/L [facility] Total Bilirubin 1.4 (H) 0.2 - 1.2 mg/dL [facility] Sodium 131 (L) 136 - 145 meq/L [facility] Potassium 4.8 3.5 - 5.1 meq/L [facility] Chloride 106 98 - 107 meq/L [facility] CO2 21 (L) 22 - 29 meq/L [facility] BUN 18 7 - 21 mg/dL [facility] Creatinine 0.69 0.57 - 1.25 mg/dL [facility] Glucose 209 (H) 70 - 105 mg/dL [facility] Calcium 7.0 (L) 8.4 - 10.2 mg/dL [facility] AST 12 5 - 34 U/L [facility] ALT 12 6 - 55 U/L [facility] EGFR 113Comment: ESTIMATED mL/min/1.73 sq m [facility] GFR IS NOT ACCURATE [facility] CREATININE CLEARANCE IN PREDICTING GLOMERULAR FILTRATION RATE. ESTIMATED GFR IS NOT APPLICABLE FOR DIALYSIS PATIENTS. Specimen Blood Narrative Performed At [employer] Mechanic Helper ID - BS [facility] CENTER Performing Organization Address City/State/Zipcode Phone Number [facility] [address] [place] [address] CENTER XR chest 1 view portable / bedside (12/27/2019 2:28 AM CDT) Specimen Narrative Performed At FINAL REPORT [facility] Chest one view. Clinical history: c/f aspiration Comparison: None. Technique: A single frontal view of the chest was obtained. Findings: There is a right IJ Port-A-Cath with tip in the SVC. The heart is normal in size. The aorta i s uncoiled. There are bibasilar airspace opacities suspicious for pneumonia. There is no pleural effusion or pneumothorax. The debra [place] thorax is unremarkable. Signed: Eliceo Pierce MD Report Verified Date/Time:12/27/2019 02:35:34 Procedure Note Interface, External Ris In - 12/27/2019 2:38 AM CDT FINAL REPORT Chest one view. Clinical history: c/f aspiration Comparison: None. Technique: A single frontal view of the chest was obtained. Findings: There is a right IJ Port-A-Cath with tip in the SVC. The heart is normal in size. The aorta i s uncoiled. There are bibasilar airspace opacities suspicious for pneumonia. There is no pleural effusion or pneumothorax. The deb[place] thorax is unremarkable. Signed: Eliceo Pierce MD Report Verified Date/Time: 12/27/2019 0 2:35:34 Performing Organization Address City/State/Zipcode Phone Number [facility] REPORT OF PROCEDURE - ENDOSCOPY URL (12/20/2019 11:35 AM CDT) Narrative Performed At This result has an attachment that is no t available. [place] fluoro non-specific up to 1 hour (12/20/2019 11:30 AM CDT) Specimen Narrative Performed At FINAL REPORT GE RIS A fluoroscopic unit was utilized for a p rocedure performed in the operating room. No interpretation was re quested. Please refer to the operative report regarding findings. Ple ase refer to PACS for patient radiation dose information. Signed: JR Benítez Robert MD Report Verified Date/Time:12/20/2019 12:58:42 Reading Location: [facility] Reading Room Procedure Note Interface, External Ris In - 12/20/2019 1:00 PM CDT FINAL REPORT A fluoroscopic unit was utilized for a p rocedure performed in the operating room. No interpretation was re quested. Please refer to the operative report regarding findings. Ple ase refer to PACS for patient radiation dose information. Signed: JR Benítez Robert MD Report Verified Date/Time: 12/20/2019 1 2:58:42 Reading [facility] Reading Room Performing Organization Address City/State/Zipcode Phone Number GE RIS after 03/17/2019 Insurance Payer Benefit Plan / Subscriber ID Type Phone Address Group BLUE CROSS/BLUE BCBS HMO xxxxxxxxxxxx HMO/POS [phone] [address] X [id number] SHIELD BL[place] [address] Advance Directives For more information, please contact:[place] [id number] [place], [place] [phone] Code Status Date Activated Date Inactivated Comments Full Code 12/27/2019 1:27 AM 12/30/2019 12:58 PM This code status was determined by: Patient
--- OUTSIDE RECORDS SUMMARY | 2020-03-17 15:08 | XMS REPORT | Continuity of Care Document ---
:[address] [facility] t Address [address] [place] [address] Care Team Providers Name Role Phone Carlos Arredondo MD Primary Care Physician Joaquin Carpio MD Attending Clinician Cathie SMALLS Attending Clinician Unavailable Ben Norman RN Attending Clinician Unavailable Bernadette [facility] Attending Clinician Unavailable Johnie [facility] Attending Clinician Unavailable Maycol Felton MD Attending Clinician Danielle [facility] Attending Clinician Unavailable Raul Gimenez [facility] Attending Clinician Unavailable Sofya ZABALA Attending Clinician Iza WETZEL Attending Clinician Maria Isabel Smith NP Attending Clinician Gregory RN, M Attending Clinician Unavailable Pamela ROY Attending Clinician Unavailable Ruth Foster RD Attending Clinician Unavailable OBEY TSAI Attending Clinician Unavailable Obey Tsai MD Attending Clinician Nat Laurent MD Attending Clinician Kelly De La Cruz MD Attending Clinician Elham Gama CRNA Attending Clinician Liliana ZABALA Attending Clinician Jarad SMALLS Attending Clinician Unavailable Argenis ZABALA, Antonio Attending Clinician Jena Nix MD Attending Clinician Thomas MURCIA Attending Clinician Unavailable Tarik SMALLS Attending Clinician Unavailable Provider Attending Clinician Unavailable Sun Francis MD Attending Clinician ARGENIS Admitting Clinician Unavailable OBEY TSAI Admitting Clinician Unavailable Payers Payer Name Policy Policy Number Effective Expiration Source Type Date Date BCBSHEALTHSELECT IN xxxxxxxxxxxx 2017 [facility] AREA/HMO BLUE 00:00:00 [facility] ESSENTIALSxxxxxxxxxxx x2016-PresentHMO BLUE CROSS/BLUE xxxxxxxxxxxx [facility] SHIELDBCBS HMO - Medical BLUE/ESSENTIALSxxxxxx Sh[address] ter xxxxxxHMO/[id number], [place] [address] Problems Condition Condition Condition Status Onset Resolution Last Treating Co mments Source Name Details Category Date Date Treatment Clinician Date Hypotensio Hypotensio Disease Active 2019- [place] due to n due to 01-09 [facility] drugs drugs 00:00: st 00 Hematemesi Hematemesi Disease Active 2019- [facility] 4-14 [facility] Center Dehydratio Dehydratio Disease Active 2020- [place] n 4-09 [facility] 00:[facility]: st 00 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 00:00: st 00 Liver Liver Disease Active 2019- [place] metastases metastases 3-25 Me thodi 00:00: st 00 Gastrointe Gastrointe Disease Resolve 2019-2020-02-08 2020-02-08 [place] stinal stinal d 4-24 00:00:00 13:54:07 Method i hemorrhage hemorrhage 00:00: st associated associated 00 with with gastric gastric ulcer ulcer History of Past Illness Condition Condition Condition Status Onset Resolution Last Treating Co mments Source Name Details Category Date Date Treatment Clinician Date Esophageal Esophageal Disease Resolve 2019-2020-02-08 2020-02-08 [place] dysphagia dysphagia d 3-25 00:00:00 13:54:05 [facility] 00:00: st 00 Allergies, Adverse Reactions, Alerts Allergy Allergy Status Severity Reaction(s) Onset Inactive Treating Comm ents Source Name Type Date Date Clinician Sulfur Propensi Active Other (See Flu like [facility] ty to Comments) 4-14 symptoms [facility] - adverse 00:00: Medical reaction 00 Center s Sulfa Propensi Active Other (See Flu like Jarrod kent (Sulfona ty to Comments) 3-25 symptoms Met hodi mide adverse 00:00: st Antibiot reaction 00 ics) s to drug Family History Family Member Diagnosis Comments Start Date Stop Date Source Natural father Heart attack Frankie Gauthier Natural mother Breast cancer David [facility] Social History Social Habit Start Date Stop Date Quantity Comments Source History of tobacco Current smoker donte Yazdanism use History [facility] Meth odist Alcohol Std Drinks History [facility] Meth odist Alcohol Binge Sex Assigned At [facility] ethodist Exposure to Not sure [place] Metho dist SARS-CoV-2 (event) Cigarettes smoked 2020-02-23 2020-02-23 Frankie Gauthier current (pack per 00:00:00 00:00:00 day) - Reported Alcohol intake 2020-02-23 2020-02-23 Lifetime [facility] thodist 00:00:00 00:00:00 non-drinker (finding) Tobacco Comment 2019-12-15 2019-12-[address] [facility] - [facility]:00 [facility] Alcohol Comment 2019-12-15 2019-12-[address] [facility] - 00:[facility]00 00:00:00 [facility] History SDOH 2019-12-07 2019-12-07 1 [place] Meth odist Alcohol Frequency 00:00:00 00:00:00 Smoking Status Start Date Stop Date Source Former smoker 2020-02-23 00:00:00 2020-02-23 00:00:00 Frankie Gauthier Current every day 2019-12-29 00:00:[address] [facility] Medications Ordered Filled Start Stop Current Ordering Indication Dosage Frequency Signature Comments Components Source Medication Medication Date Date Medication? Clinician (SIG) Name Name aspirin Yes 81mg QD Take 81 mg [place] (ECOTRIN) 6-10 by mouth Method i 81 MG 09:39: daily. st enteric 24 coated tablet ondansetron Yes 8mg Q.5D Take 8 mg [place] ODT 6-10 by mouth 2 Methodi (ZOFRAN-ODT 09:39: (two) st ) 8 MG 24 times a disintegrat day. ing tablet pantoprazol 2020-0 Yes 40mg Q.5D Take [address] [facility] 4-17 tablet (40 [facility] - (PROTONIX) 00:00: mg total) Me dical 40 MG 00 by mouth 2 Center tablet (two) times daily. pantoprazol 2020-0 Yes 40mg Q.5D Take 40 mg David e 4-17 by mouth 2 Methodi (PROTONIX) 00:00: (two) st 40 MG EC 00 times a tablet day. traMADoL 2020-0 Yes 50mg Take 50 mg Alayna ston (ULTRAM) 50 08 by mouth. Met hodi mg tablet 00:00: st 00 dronabinoL 2020-0 2020- No 2.5mg Q.5D Take 1 Alayna ston (Marinol) 12-20 04-18 capsule Method i 2.5 MG 00:00: 23:59 (2.[address] capsule 00 :00 total) by mouth 2 (two) times a day before meals for 10 days. aspirin 81 2020-0 Yes 81mg QD Take [address] MG EC 407 by mouth [facility] - tablet 09:41: daily. Medical 49 Center combination 2020-[address] formulary 4-02 [facility] - medication 10:44: Medical 43 Center lisinopriL 2020-0 Yes 5mg QD Take [address] (PRINIVIL,Z 4-02 by mouth Luke s - ESTRIL) 5 10:04: daily. Medica l MG tablet 59 Center ondansetron 2020-0 Yes 8mg Take [address] (ZOFRAN-ODT 4-02 by mouth 2 Isela kes - ) 8 MG 10:04: (two) Medical disintegrat 59 times Center ing tablet daily as needed for Nausea. prochlorper 2020-0 2020- No GE junction 5mg Q6H Take 1 [place] azine 3-26 04-25 carcinoma tablet (5 Met hodi (Compazine) 00:00: 23:59 (HCC) mg total) st 5 MG tablet 00 :00 by mouth every 6 (six) hours as needed for nausea or vomiting for up to 30 days. ondansetron 2020-0 2020- No GE junction 8mg Q8H Take 1 [place] ODT (Zofran 3-26 04-25 carcinoma tablet (8 Methodi ODT) 8 MG 00:00: 23:59 (HCC) mg total) s t disintegrat 00 :00 by mouth ing tablet every 8 (eight) hours as needed for nausea or vomiting for up to 30 days. lisinopriL Uziel n (PRINIVIL) 09-16 05-27 Methodi 5 mg tablet 00:00: 00:00 st 00 :00 Vital Signs Vital Name Observation Time Observation Value Comments Source Systolic blood 2020-03-14 15:40:00 109 mm[Hg] [place] pressure Diastolic blood 2020-03-14 15:40:00 66 mm[Hg] [place] pressure Heart rate 2020-03-14 15:40:00 58 /min [place] [facility] Body temperature 2020-03-14 15:40:00 36.56 Jessie [facility] ton Yazdanism Respiratory rate 2020-03-14 15:40:00 18 /min [facility] ton [facility]ism Body height 2020-03-14 15:40:00 185.4 cm [place] [facility] Body weight 2020-03-14 15:40:00 66.56 kg [place] [facility] BMI 2020-03-14 15:40:00 19.36 kg/m2 [place] [facility] Oxygen saturation in 2020-03-14 15:40:00 99 /min [facility] Arterial blood by Pulse oximetry Systolic blood 2019-12-30 07:50:00 110 mm[Hg] [facility] Diastolic blood 2019-12-30 07:50:00 77 mm[Hg] [facility] Heart rate 2019-12-30 07:50:00 86 /min [facility] Body temperature 2019-12-30 07:50:00 36.94 Jessie [facility] Respiratory rate 2019-12-30 07:50:00 18 /min [facility] Oxygen saturation in 2019-12-30 07:50:00 95 /min [facility] Arterial blood by Medical Ce nter Pulse oximetry Body weight Measured 2019-12-30 06:00:00 72.757 kg [facility] BMI 2019-12-30 06:00:00 21.16 kg/m2 [facility] Body height 2019-12-27 01:30:00 185.4 cm [facility] Procedures Procedure Date / Time Performing Source Performed Clinician COMPREHENSIVE METABOLIC PANEL 2020-03-12 Michelle Carpio [place] 10:04:00 [facility] HC COMPLETE BLD COUNT W/AUTO DIFF 2020-03-12 Michelle Carpio Ed [place] 10:04:00 [facility]ism MAGNESIUM LEVEL 2020-03-12 Michelle Carpio [place] 10:04:00 [facility] ESTIMATED GFR 2020-03-12 Michelle Carpio [place] 10:04:00 [facility] COMPREHENSIVE METABOLIC PANEL 2020-02-27 Michelle Carpio [place] 09:15:00 [facility] HC COMPLETE BLD COUNT W/AUTO DIFF 2020-02-27 Michelle Carpio Ed [place] 09:15:00 [facility] MAGNESIUM LEVEL 2020-02-27 Michelle Carpio [place] 09:15:00 [facility] ESTIMATED GFR 2020-02-27 CharlesjoeyMichelle [place] 09:15:00 Y[facility]ism FL < 1 HOUR 2020-02-22 Julia Felton [place] 08:47:00 Y[facility]ism ESOPHAGOGASTRODUODENOSCOPY (EGD) 2020-02-22 Julia Felton [place] 07:52:[address] CHEST W CONTRAST ABDOMEN W 2020-02-08 Michael Michelle lianet [place] CONTRAST PELVIS W CONTRAST 10:33:55 Metho dist COMPREHENSIVE METABOLIC PANEL 2020-02-08 joeyMichelle [place] 09:59:00 Y[facility]ism HC COMPLETE BLD COUNT W/AUTO DIFF 2020-02-08 CharlesjoeyMichelle Ed martini [place] 09:59:00 Y[facility]ism MAGNESIUM LEVEL 2020-02-08 CharlesjoeyMichelle [place] 09:59:00 Yazdanism ESTIMATED GFR 2020-02-08 CharlesjoeyMichelle Edlianet [place] 09:59:00 Yazdanism ECG 12-LEAD 2020-01-27 Frankie Gee 00:00:00 [place] [facility] COMPREHENSIVE METABOLIC PANEL 2020-01-25 Michael Michelle Joaquin [place] 09:23:00 Y[facility]ism HC COMPLETE BLD COUNT W/AUTO DIFF 2020-01-25 MichaelMichelle Ed martini [place] 09:23:00 Y[facility]danism MAGNESIUM LEVEL 2020-01-25 Michael Michelle Joaquin [place] 09:23:00 Y[facility]ism ESTIMATED GFR 2020-01-25 Michelle Carpio [place] 09:23:00 Y[facility]ism TTE COMPLETE, WO CONTRAST, W 2020-01-12 Michelle Carpio DOPPLER ([id number]) 11:08:48 Y[facility]ism VITAMIN B12 LEVEL 2020-01-10 Michelle Carpio David 09:43:00 Y[facility]ism FOLATE LEVEL 2020-01-10 Michelle Carpio David 09:43:00 [facility] COMPREHENSIVE METABOLIC PANEL 2020-01-10 Michelle Carpio David 09:42:00 Y[facility]ism HC COMPLETE BLD COUNT W/AUTO DIFF 2020-01-10 Michelle Carpio Ed [place] 09:42:00 Y[facility]danism MAGNESIUM LEVEL 2020-01-10 Michelle Carpio [place] 09:42:00 Yazdanism FERRITIN LEVEL 2020-01-10 Michelle Carpio [place] 09:42:00 Y[facility]ism TOTAL IRON BINDING CAPACITY 2020-01-10 Michelle aCrpio [place] 09:42:00 Y[facility] ESTIMATED GFR 2020-01-10 Michelle Carpio [place] 09:42:00 Y[facility]ism REPORT OF PROCEDURE - ENDOSCOPY 2020-01-02 Provider, Lexi barnett [facility] - SCAN 15:40:38 [facility] RHYTHM STRIP - SCAN 2020-01-02 Provider, Lionel OLIVERA [facility] - 15:40:28 [facility] TRANSFUSION SERVICE REPORT - SCAN 2019-12-30 Provider, Lexie lyons [facility] - 18:01:21 [facility] CBC W/PLT COUNT & AUTO 2019-12-30 Gabbie De La Cruz [facility] - DIFFERENTIAL 03:54:00 [facility] TRANSFUSION SERVICE REPORT - SCAN 2019-12-29 Provider, Lexie lyons [facility] - 17:50:55 [facility] CBC (HEMOGRAM ONLY) 2019-12-[address] [facility] - 12:37:00 [facility] CBC (HEMOGRAM ONLY) 2019-12-[address] [facility] - 05:43:00 [facility] BASIC METABOLIC PANEL (7) 2019-12-29 [facility] - 05:42:00 [facility] CBC (HEMOGRAM ONLY) 2019-12-[address] [facility] - 00:07:00 [facility] PREPARE LEUKO-REDUCED RBC 2019-12-28 [facility] - 23[facility]54:00 [facility] CBC (HEMOGRAM ONLY) 2019-12-[address] [facility] - 18:01:00 [facility] TRANSFUSION SERVICE REPORT - SCAN 2019-12-28 Lexie Jiménez marianibal [facility] - 17:51:06 Scanning [facility] CBC (HEMOGRAM ONLY) 2019-12-[address] [facility] - 12:42:00 [facility] POCT-GLUCOSE METER 2019-12-[address] [facility] - 05:30:00 [facility] CBC (HEMOGRAM ONLY) 2019-12-[address] [facility] - 04:25:00 [facility] BASIC METABOLIC PANEL (7) 2019-12-28 [facility]ton Pack [facility] - 04:25:00 [facility] CBC (HEMOGRAM ONLY) 2019-12-[address] [facility] - 23:33:00 [facility] POCT-GLUCOSE METER 2019-12-[address] [facility] - 23:32:00 [facility] POCT-GLUCOSE METER 2019-12-[address] [facility] - 18:14:00 [facility] POCT-GLUCOSE METER 2019-12-[address] [facility] - 15:34:00 [facility] CBC (HEMOGRAM ONLY) 2019-12-[address] [facility] - 15:25:00 [facility] REPORT OF PROCEDURE - ENDOSCOPY 2019-12-[address] [facility] - URL 12:49:16 [facility] UPPER ENDOSCOPY 2019-12-[address] [facility] - 11:00:00 [facility] CBC (HEMOGRAM ONLY) 2019-12-[address] [facility] - 08:25:00 [facility] TRANSFUSE LEUKO-REDUCED RED BLOOD 2019-12-[address] [facility] - CELLS 07:19:43 [facility] HEMOGLOBIN A1C 2019-12-[address] [facility] - 04:55:00 [facility] BLOOD CULTURE 2019-12-27 Ramone, Alton W [facility] - 04:54:00 [facility] ABORH, MANUAL 2019-12-[address] [facility] - 03:11:00 [facility] BLOOD CULTURE 2019-12-27 Ramone, Alton W [facility] - 02:53:00 [facility] TYPE AND SCREEN, AUTOMATED 2019-12-27 Ramone, Alton W [facility] - 02:52:00 [facility] COMPREHENSIVE METABOLIC PANEL 2019-12-27 Ramone, [facility] W [facility] - 02:40:00 [facility] MAGNESIUM 2019-12-27 Ramone, Alton W [facility] - 02:40:00 [facility] LACTIC ACID, VENOUS 2019-12-27 Ramone, [facility] - 02:40:00 [facility] PROTHROMBIN TIME/INR 2019-12-27 Ramone, Alton W [facility] - 02:40:00 [facility] CBC W/PLT COUNT & AUTO 2019-12-27 Ramone, Alton W [facility] - DIFFERENTIAL 02:40:00 [facility] XR CHEST 1 VIEW PORTABLE/BEDSIDE 2019-12-27 Ramone, Alton W [facility] - 02:28:00 [facility] REPORT OF PROCEDURE - ENDOSCOPY 2019-12-[address] [facility] - URL 11:35:29 [facility] FL FLUORO NON-SPECIFIC UP TO 1 2019-12-[address] [facility] - HOUR 11:30:00 [facility] UPPER ENDOSCOPY,WALL STENT 2019-12-[address] [facility] - 11:00:00 [facility] PROCEDURE W/ C-ARM 2019-12-[address] [facility] - 11:00:00 [facility] COMPREHENSIVE METABOLIC PANEL 2019-12-13 Michelle Carpio [place] 09:25:00 [facility] HC COMPLETE BLD COUNT W/AUTO DIFF 2019-12-13 Michelle Carpio Ed [place] 09:25:00 Y[facility] MAGNESIUM LEVEL 2019-12-13 Michelle Carpio [place] 09:25:00 [facility] ESTIMATED GFR 2019-12-13 Michelle Carpio [place] 09:25:00 [facility] IR PORT PLACEMENT 2019-12-09 Michelle Carpio [place] 11:36:04 [facility]ism XR CHEST 2 VW 2019-12-07 Michelle Carpio [place] 12:36:44 Y[facility]ism HC COMPLETE BLD COUNT W/AUTO DIFF 2019-12-07 Michelle Carpio Ed [place] 12:08:00 [facility] COMPREHENSIVE METABOLIC PANEL 2019-12-07 Michelle Crapio [place] 12:08:00 [facility] CARCINOEMBRYONIC ANTIGEN (CEA) 2019-12-07 Michelle Carpio bertin [place] 12:08:00 [facility] CANCER ANTIGEN 19-9 2019-12-07 Michelle Carpio [place] 12:08:00 [facility] PROTHROMBIN TIME WITH INR 2019-12-07 Michelle Carpio ston 12:08:00 [facility] PARTIAL THROMBOPLASTIN TIME (PTT) 2019-12-07 Michelle Carpio Ed [place] 12:08:00 [facility] ESTIMATED GFR 2019-12-07 Michelle Carpio [place] 12:08:[address] ABD/PELVIC EXTERNAL STUDY 2019-11-17 Michelle Carpio [place] 08:38:00 [facility] XR CHEST EXTERNAL STUDY 2019-11-17 Michelle Carpio [place] 08:11:00 [facility] Plan of Care Planned Activity Planned Date Details Comments Source Future Scheduled Test 2020-04-14 INFLUENZA VACCINE [facility] 00:00:00 [code = INFLUENZA VACCINE] Future Scheduled Test 2013 65+ PNEUMOCOCCAL Ho [facility] 00:00:00 VACCINE (1 of 2 - PCV13) [code = 65+ PNEUMOCOCCAL VACCINE (1 of 2 - PCV13)] Future Scheduled Test 1998 COLONOSCOPY SCREENING [place] [facility] 00:00:00 [code = COLONOSCOPY SCREENING] Future Scheduled Test 1998 SHINGLES VACCINES H [facility] Yazdanism 00:00:00 (#1) [code = SHINGLES VACCINES (#1)] Future Appointment 2020-04-04 Julia Felton MD, [address] 09:00:[address], [place] [address] Future Appointment 2020-04-04 Julia Felton MD, [address] 09:00:[address], [place] [address] Encounters Start End Encounter Admission Attending Care Care Encounter Source Date/Time Date/Time Type Type Clinicians Facility Department ID 2020-03-14 2020-03-14 Outpatient MICHELLE CARPIO [facility] [id number] [place] 00:00:00 00:00:[address] 2020-03-14 2020-03-14 Outpatient MICHELLE CARPIO [facility] [id number] [place] 00:00:00 00:00:[address] 2020-03-12 2020-03-12 Outpatient MICHELLE CARPIO [facility] [id number] [place] 00:00:00 00:00:[address] 2020-02-29 2020-02-29 Outpatient MICHELLE CARPIO [facility] [id number] [place] 00:00:00 00:00:[address] 2020-02-27 2020-02-27 Outpatient MICHELLE CARPIO [facility] [id number] [place] 00:00:00 00:00:[address] 2020-02-22 2020-02-22 Outpatient ARGENIS [facility] [id number] [place] 00:00:00 00:00:00 BREWER [address] 2020-02-10 2020-02-10 Outpatient MICHELLE CARPIO [facility] [id number] [place] 00:00:00 00:00:[address] 2020-02-08 2020-02-08 Outpatient MICHELLE CARPIO [facility] [id number] [place] 00:00:00 00:00:[address] 2020-02-08 2020-02-08 Outpatient MICHELLE CARPIO [facility] [id number] [place] 00:00:00 00:00:[address] 2020-02-08 2020-02-08 Outpatient MICHELLE CARPIO [facility] [id number] [place] 00:00:00 00:00:[address] 2020-01-27 2020-01-27 Outpatient MICHELLE CARPIO [facility] [id number] [place] 00:00:00 00:00:[address] 2020-01-27 2020-01-27 Outpatient [facility] [id number] [place] 00:00:00 00:00:[address] 2020-01-25 2020-01-25 Outpatient MICHELLE CARPIO [facility] [id number] [place] 00:00:00 00:00:[address] 2020-01-12 2020-01-12 Outpatient MICHELLE CARPIO [facility] [id number] [place] 00:00:00 00:00:[address] 2020-01-12 2020-01-12 Outpatient MICHELLE CARPIO [facility] [id number] [place] 00:00:00 00:00:[address] 2020-01-10 2020-01-10 Outpatient MICHELLE CARPIO [facility] [id number] [place] 00:00:00 00:00:[address] 2020-01-10 2020-01-10 Outpatient MICHELLE CARPIO [facility] [id number] [place] 00:00:00 00:00:[address] 2020-01-06 2020-01-06 Outpatient MICHELLE CARPIO [facility] [id number] [place] 00:00:00 00:00:[address] 2019-12-15 2019-12-15 Outpatient MICHELLE CARPIO [facility] [id number] [place] 00:00:00 00:00:[address] 2019-12-13 2019-12-13 Outpatient MICHELLE CARPIO [facility] [id number] [place] 00:00:00 00:00:[address] 2019-12-09 2019-12-09 Outpatient MICHELLE CARPIO [facility] [id number] [place] 00:00:00 00:00:[address] 2019-12-07 2019-12-07 Outpatient MICHELLE CARPIO [facility] [id number] [place] 00:00:00 00:00:[address] 2019-12-07 2019-12-07 Outpatient MICHELLE CARPIO [facility] [id number] [place] 00:00:00 00:00:[address] 2019-12-07 2019-12-07 Outpatient MICHELLE CARPIO [facility] [id number] [place] 00:00:00 00:00:[address] 2019-12-07 2019-12-07 Outpatient MICHELLE CARPIO [facility] [id number] [place] 00:00:00 00:00:[address] 2019-12-07 2019-12-07 Outpatient MICHELLE CARPIO [facility] [id number] [place] 00:00:00 00:00:[address] 2019-12-01 2019-12-01 Outpatient GIANCARLO [facility] [id number] [place] 00:00:00 00:00:00 ELVIA [address] Results Test Description Test Time Test Comments Results Result Comments Source Comprehensive metabolic panel 2020-03-12 11:28:19 Test Item Value Reference Range Interpretation Comme nts Sodium (test code = 2951-2) 137 135- 148 mEq/L Potassium (test code = 2823-3) 3.6 3.5- 5.0 mEq/L Chloride (test code = 5-0) 101 98- 112 mEq/L CO2 (test code = 2027-9) 22 24- 31 mEq/L L Anion gap (test code = 63449-5) 14@ANIO 7- 15 mEq/L BUN (test code = 3094-0) 12 mg/dL 8-23 Creatinine (test code = 2160-0) 0.89 mg/dL 0.7-1.2 Glucose (test code = 2345-7) 113 mg/dL 65-99 H Calcium (test code = 28668-8) 9.3 mg/dL 8.8-10.2 Protein (test code = 2885-2) 6.3 g/dL 6.3-8.3 - 4.6-7.0 g/dL1 week 4. 4-7.6 g/dL7 months-1y ear 5.1-7.3 g/d L1-2 years 5.6-7.5 g/dL>3 years 6.0 -8.0 g/bL17-222 6.3-8.3 g/d L Albumin (test code = 1751-7) 2.8 g/dL 3.5-5 L A/G ratio (test code = 1759-0) 0.8 0.7-3.8 Alkaline phosphatase (test code = 98 U/L 40-129 6768-6) AST (test code = 1920-8) 30 U/L 10-50 ALT (test code = 1742-6) 23 U/L 5-50 Total bilirubin (test code = 0.6 mg/dL 0-1.2 1974-2) Lab Interpretation (test code = Abnormal 61413-3) Frankie [facility] [id number] 11:28:18 Test Item Value Reference Range Interpretation Comments Magnesium (test code = 45010-5) 1.8 mg/dL 1.6-2.4 Frankie MethodistEstimated [id number] 11:28:17 Test Item Value Reference Range Interpretation Comments Estimated GFR (test 86 mL/min/1.73 [facility]2 [facility] = 5488) InterpretationG 1 >=90 Normal or highG2 60-89 Mildly haksvjmwlS2r 45-59 Mildly to mode rately inpvvzwlrM4k 30-44 Moderately to severely decreasedG4 15-29 Severely decre asedG5 <15 Kidn ey failureThe eGFR was calculated sanam hardin the Chronic Kidney Disease Epidemiology Co llaboration (CKD-EPI) equat ion. Interpretation is based on recommendations of the National Kidney Foundation-Kidn ey Disease Outcomes Qualit y Initiative (NKF-KDOQI) pub lished in 2014. David MethodistCBC with platelet and [id number] 11:01:34 Test Item Value Reference Range Interpretation Comments WBC (test code = 25520-5) 3.57 4.50- 11.00 k/uL L RBC (test code = 80601-1) 3.70 m/uL 4.4-6 L HGB (test code = 718-7) 11.1 g/dL 14-18 L HCT (test code = 4544-3) 33.9 % 41-51 L MCV (test code = 787-2) 91.6 fL 82-100 MCH (test code = 785-6) 30.0 pg 27-34 MCHC (test code = 786-4) 32.7 g/dL 31-37 RDW - SD (test code = 63.6 fL 37-55 H 94927-1) MPV (test code = 72922-9) 12.0 fL 8.8-13.2 Platelet count (test code 79 150- 400 k/uL L = 52159-0) Nucleated RBC (test code 0.00 /100 WBC = 93429-0) Neutrophils (test code = 56.1 % 39-69 72791-8) Lymphocytes (test code = 23.2 % 25-45 L 51156-3) Monocytes (test code = 19.0 % 0-10 H 48814-7) Eosinophils (test code = 0.8 % 0-5 48824-6) Basophils (test code = 0.6 % 0-1 03896-6) Immature granulocytes 0.3 % 0-1 "Immat ure (test code = 72451-4) granul ocytes" (promyelocytes, myelocytes, metamyelocytes) Lab Interpretation (test Abnormal code = 87684-3) [place] MethodistFL < 1 [id number] 10:17:06Hm Interface, Radiology Results 02/22/2020 10:20 AM CDTEXAMINATION: FL < 1 HOURLOCATION: JENNY Ortega ENDOSCOPY ROOM 8PROCEDURE: EGD w/STENT PLACEMENTSCHEDULED TIME: 0800START TIME: 0747ENDTIME: 0847FLUORO TIME: 2.2 MINSDOSE (mGy): 22 mGy# OF IMAGES: 8IMPRESSION:Fluoroscopy was requested in the Endoscopy Suite. 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 Sagittal and coronal computerized reformatted images were obtained. CT imaging was performed with iterative reconstruction techniques and/or automated exposure control to reduce radiation dose. COMPARISON: To a previous outside examination from 11/17/2019IMPRESSION:CHEST:Lungs and airways: Patchy peripheral areas of groundglass attenuation are present in the posterior segment of the right upper lobe. Findings are nonspecific but are concerning for aspiration pneumonia.The left lung is clear. Pleura: No pleural effusion or pneumothorax.Mediastinum and lymph nodes: No lymphadenopathy. Cardiovascular: The heart size is normal. No pericardial effusion. The thoracic aorta is normal in caliber. No dissection. Other: A metallic stent is present in the distal esophagus extending into the stomach. The stomach is distended.ABDOMEN:Liver: Extensive metastatic disease is present, most marked involving hepatic segments 7 and 8, without definite interval change from the November examination. Metastatic nodules measure 5 to 20 mm.Gallbladder/Biliary: The gallbladder is normal. There is no evidence of intra or extrahepatic biliary ductal dilatation.Spleen: The spleen is not enlarg ed.Pancreas: The pancreas is small.Adrenal Glands: The adrenal glands are unremarkable.Kidneys: The kidneys are unremarkable. No mass, hydronephrosis or calculi. Subcentimeter cysts are present in bothkidneys not of clinical significance.Vascular: The abdominal aorta is nonaneurysmal.Nodes: No enlarged retroperitoneal or mesenteric lymphadenopathy.Bowel: No bowel obstruction or inflammatory changes.The appendix is normal in appearance. Moderate amount of feces is noted in the colon.Ascites/fluid collections: No ascites or fluid collections.PELVIS:No mass, fluid collection or significant adenopathy. MUSCULOSKELETAL: No suspicious osseous lesions. SUMMARY:1.Metastatic disease in the liver.2.Placement of a metallic stent across the GE junction.[id number] [facility] Complete, (w Contrast, Strain and 3D if needed)2020-01-13 11:28:00Interface, Radiology Results In 01/13/2020 11:28 AM T Echocardiography Report [id number]Name: BOBBY FLORES.ID: [id number].Date: 01/12/2020 Refer.MD: MICHELLE CARPOI MD Exam Time: 9:07:00 AM Study Type:Routine Echo Height: 73in Weight: 159lb BSA: 1.95 m2 Age: 9 1950,69Y Sex: MALE BP: 115/67 HR: 69 bpm Sonogrphr: MIAN Rosa Pat. Stat.:Outpatient Room: [facility]16 Study Status:Final Echo Event ID:[id number] Order ID: [id number] Reason forStudy:chemotherapy Procedures: 2D Echo, Colorflow Doppler, StrainRace: C SUMMARY: LV EF is normal.Estimated EF is 55-59%. RV systolic function is normal.Estimated PA systolic pressure is 26-31 mmHg,assuming a mean RAP of5-10 mmHg. FINDINGS: LV: LV EF is normal. Overall wall motion is normal. Estimated EF is 55-59%. Normal average LV global longitudinal strain at -18.4%.RV: RV size is normal. RV systolic function is normal.LA: LA volume is severely enlarged.RA: RA size is normal.AO: Aortic root diameter is normal.SANDER: No pericardial effusion.AV: No structural AV abnormalities noted.MV: No structural MV abnormalities noted. A trace of mitral regurgitation. PV: No structural PV abnormalities noted.TV: No structural TV abnormalities noted. Mild tricuspid regurgitation Berrios: Normal diastolic function and LV filling pressures.Other : Estimated PA systolic pressure is 26-31 mmHg, assuming a mean RAP of 5-10 mmHg.-------- MEASUREMENTS: 2DParasternal [place] Ao An 2.4 cm LV%fs 30 % Ao Rtd 3.4 cm Index 1.7 cm/m2 LVPWd 0.96 cm IVSd 1.1 cm RWT 0.4 LVIDd 4.9 cm Index 2.5 cm/m2 LV Mass 186 g (122-174) LVIDs 3.4 cm LVM Index 96 g/m2LA Sng Plane LA Area 27 cm2 (8.8-23.4) LA Vol 93 ml Index 48 ml/m2 LA LngAx 6 cm LVOT Stroke Vol LVOT 2.3 cm LVOT LVOT Area 4.2 cm2 DOPPLERLVOT Stroke Vol LVOT TVI 18 cm LVOT CI 2.4 l/m/m2 LVOT SV 76 ml HR 61 bpm LVOT CO 4.6 l/min LVOT SVi 39 ml/m2 Signed 01/13/2020 11:28 Fransico Napier M.D.[facility] MethodistVitamin B12 [id number] 11:04:15 Test Item Value Reference Range Interpretation Comments Vitamin B12 (test 532 pg/mL 211-946 Significan t overlap code = 2132-9) exists betwee n normal and deficiency states.However, most patients with deficiencies wi ll have Serum B12 <2 00 pg/mL. [place] MethodistFolate [id number] 11:04:15 Test Item Value Reference Range Interpretation Comments Folate (test code = 2284-8) 10.8 ng/mL 4.8-24.2 [place] MethodistFerritin [id number] 10:51:58 Test Item Value Reference Range Interpretation Comments Ferritin level (test code = 2276-4) 228 ng/mL 30-400 [facility] iron binding [id number] 10:51:47 Test Item Value Reference Range Interpretation Comments Iron level (test code = 2498-4) 15 ug/dL 59-158 L Iron binding capacity (test code = 178 ug/dL 200-400 L 2500-7) % Saturation (test code = 2502-3) 8.4 % 20-40 L Lab Interpretation (test code = Abnormal 93720-4) [place] [facility] center[facility] Culture - Routine (Left Venipuncture)2020-01-01 07:00:00 Test Item Value Reference Range Interpretation Comments Result (test code = No growth in 5 days 6463-4) [facility] [id number] 07:00:00 Test Item Value Reference Range Interpretation Comments CULTURE (BEAKER) (test No growth in 5 days code = 1095) BLOOD [id number] 04:00:00 Test Item Value Reference Range Interpretation Comments CULTURE (BEAKER) (test No growth in 5 days code = 1095) CBC with platelet count + automated [id number] 05:09:00 Test Item Value Reference Range Interpretation Comments WBC (test code = 6690-2) 4.8 3.5- 10.5 K/L RBC (test code = 789-8) 2.58 4.63- 6.08 M/L L MCHC (test code = 786-4) 32.8 32.3- 36.5 GM/DL L Hematocrit (test code = 4544-3) 22.9 % 40.1-51 L MCV (test code = 787-2) 88.8 fL 79-92.2 MCH (test code = 785-6) 29.1 pg 25.7-32.2 RDW (test code = 788-0) 12.9 % 11.6-14.4 Platelets (test code = 777-3) 160 150- 450 K/CU MM MPV (test code = 62276-3) 11.0 fL 9.4-12.4 nRBC (test code = 413) 0 0- 0 /100 WBC % Neutros (test code = 429) 42 % % Lymphs (test code = 430) 29 % % Monos (test code = 431) 19 % % Eos (test code = 432) 10 % % Baso (test code = 437) 0 % # Neutros (test code = 670) 2.00 1.78- 5.38 K/L # Lymphs (test code = 414) 1.36 1.32- 3.57 K/L # Monos (test code = 415) 0.88 0.30- 0.82 K/L H # Eos (test code = 416) 0.48 0.04- 0.54 K/L # Baso (test code = 417) 0.02 0.01- 0.08 K/L Immature Granulocytes-Relative 0 % 0-1 (test code = 2801) Lab Interpretation (test code = Abnormal 94635-4) [facility] W/PLT COUNT & AUTO [id number] 05:09:00 Test Item Value Reference Range Interpretation Comments WHITE BLOOD CELL COUNT (BEAKER) 4.8 K/ L 3.5-10.5 (test code = 775) RED BLOOD CELL COUNT (BEAKER) 2.58 M/ L 4.63-6.08 L (test code = 761) HEMOGLOBIN (BEAKER) (test code = 7.5 GM/DL 13.7-17.5 L 410) HEMATOCRIT (BEAKER) (test code = 22.9 % 40.1-51.0 L 411) MEAN CORPUSCULAR VOLUME (BEAKER) 88.8 fL 79.0-92.2 (test code = 753) MEAN CORPUSCULAR HEMOGLOBIN 29.1 pg 25.7-32.2 (BEAKER) (test code = 751) MEAN CORPUSCULAR HEMOGLOBIN CONC 32.8 GM/DL 32.3-36.5 (BEAKER) (test code = 752) RED CELL DISTRIBUTION WIDTH 12.9 % 11.6-14.4 (BEAKER) (test code = 412) PLATELET COUNT (BEAKER) (test 160 K/CU MM 150-450 code = 756) MEAN PLATELET VOLUME (BEAKER) 11.0 fL 9.4-12.4 (test code = 754) NUCLEATED RED BLOOD CELLS 0 /100 WBC 0-0 (BEAKER) (test code = 413) NEUTROPHILS RELATIVE PERCENT 42 % (BEAKER) (test code = 429) LYMPHOCYTES RELATIVE PERCENT 29 % (BEAKER) (test code = 430) MONOCYTES RELATIVE PERCENT 19 % (BEAKER) (test code = 431) EOSINOPHILS RELATIVE PERCENT 10 % (BEAKER) (test code = 432) BASOPHILS RELATIVE PERCENT 0 % (BEAKER) (test code = 437) NEUTROPHILS ABSOLUTE COUNT 2.00 K/ L 1.78-5.38 (BEAKER) (test code = 670) LYMPHOCYTES ABSOLUTE COUNT 1.36 K/ L 1.32-3.57 (BEAKER) (test code = 414) MONOCYTES ABSOLUTE COUNT (BEAKER) 0.88 K/ L 0.30-0.82 H (test code = 415) EOSINOPHILS ABSOLUTE COUNT 0.48 K/ L 0.04-0.54 (BEAKER) (test code = 416) BASOPHILS ABSOLUTE COUNT (BEAKER) 0.02 K/ L 0.01-0.08 (test code = 417) IMMATURE GRANULOCYTES-RELATIVE 0 % 0-1 PERCENT (BEAKER) (test code = 2801) CBC (Hemogram only)2019-12-29 12:54:00 Test Item Value Reference Range Interpretation Comments WBC (test code = 6690-2) 5.1 3.5- 10.5 K/L RBC (test code = 789-8) 2.58 4.63- 6.08 M/L L MCHC (test code = 786-4) 32.8 32.3- 36.5 GM/DL L Hematocrit (test code = 4544-3) 23.5 % 40.1-51 L MCV (test code = 787-2) 91.1 fL 79-92.2 MCH (test code = 785-6) 29.8 pg 25.7-32.2 RDW (test code = 788-0) 13.0 % 11.6-14.4 Platelets (test code = 777-3) 137 150- 450 K/CU MM L MPV (test code = 04500-8) 10.8 fL 9.4-12.4 nRBC (test code = 413) 0 0- 0 /100 WBC Lab Interpretation (test code = Abnormal 15462-2) [facility] (HEMOGRAM ONLY)2019-12-29 12:54:00 Test Item Value Reference Range Interpretation Comments WHITE BLOOD CELL COUNT (BEAKER) 5.1 K/ L 3.5-10.5 (test code = 775) RED BLOOD CELL COUNT (BEAKER) 2.58 M/ L 4.63-6.08 L (test code = 761) HEMOGLOBIN (BEAKER) (test code = 7.7 GM/DL 13.7-17.5 L 410) HEMATOCRIT (BEAKER) (test code = 23.5 % 40.1-51.0 L 411) MEAN CORPUSCULAR VOLUME (BEAKER) 91.1 fL 79.0-92.2 (test code = 753) MEAN CORPUSCULAR HEMOGLOBIN 29.8 pg 25.7-32.2 (BEAKER) (test code = 751) MEAN CORPUSCULAR HEMOGLOBIN CONC 32.8 GM/DL 32.3-36.5 (BEAKER) (test code = 752) RED CELL DISTRIBUTION WIDTH 13.0 % 11.6-14.4 (BEAKER) (test code = 412) PLATELET COUNT (BEAKER) (test 137 K/CU MM 150-450 L code = 756) MEAN PLATELET VOLUME (BEAKER) 10.8 fL 9.4-12.4 (test code = 754) NUCLEATED RED BLOOD CELLS 0 /100 WBC 0-0 (BEAKER) (test code = 413) Basic Metabolic [id number] 06:50:00 Test Item Value Reference Range Interpretation Comments Sodium (test code = 134 meq/L 136-145 L 2951-2) Potassium (test code = 3.5 meq/L 3.5-5.1 2823-3) Chloride (test code = 105 meq/L 98-107 2075-0) CO2 (test code = 26 meq/L 22-29 2028-9) BUN (test code = 7 mg/dL 7-21 3094-0) Creatinine (test code 0.68 mg/dL 0.57-1.25 = 2160-0) Glucose (test code = 108 mg/dL 70-105 H 2345-7) Calcium (test code = 7.5 mg/dL 8.4-10.2 L 69363-4) EGFR (test code = 115 mL/min/1.73 [place] [address]-1) NOT ACCURATE CREATININE CLEARANCE IN PREDICTING GLOMERULAR FILTRATION RATE . ESTIMATED GFR I S NOT APPLICABLE FOR DIALYSIS PATIENTS. NORBERTO (test code = NORBERTO) Community Service Director ID - BRENDA L Lab Interpretation Abnormal (test code = 99100-7) [facility] METABOLIC [id number] 06:50:00 Test Item Value Reference Range Interpretation Comments SODIUM (BEAKER) 134 meq/L 136-145 L (test code = 381) POTASSIUM (BEAKER) 3.5 meq/L 3.5-5.1 (test code = 379) CHLORIDE (BEAKER) 105 meq/L 98-107 (test code = 382) CO2 (BEAKER) (test 26 meq/L 22-29 code = 355) BLOOD UREA NITROGEN 7 mg/dL 7-21 (BEAKER) (test code = 354) CREATININE (BEAKER) 0.68 mg/dL 0.57-1.25 (test code = 358) GLUCOSE RANDOM 108 mg/dL 70-105 H (BEAKER) (test code = 652) CALCIUM (BEAKER) 7.5 mg/dL 8.4-10.2 L (test code = 697) EGFR (BEAKER) (test 115 mL/min/1.73 ESTIM ATED GFR IS code = 1092) sq m NOT ACCURATE CREATININE CLEARANCE IN PREDICTING GLOMERULAR FILTRATION RATE . ESTIMATED GFR I S NOT APPLICABLE FOR DIALYSIS PATIEN TS. Community Service Director ID - BRENDA LCBC (HEMOGRAM ONLY)2019-12-29 06:22:00 Test Item Value Reference Range Interpretation Comments WHITE BLOOD CELL COUNT (BEAKER) 5.1 K/ L 3.5-10.5 (test code = 775) RED BLOOD CELL COUNT (BEAKER) 2.52 M/ L 4.63-6.08 L (test code = 761) HEMOGLOBIN (BEAKER) (test code = 7.2 GM/DL 13.7-17.5 L 410) HEMATOCRIT (BEAKER) (test code = 22.2 % 40.1-51.0 L 411) MEAN CORPUSCULAR VOLUME (BEAKER) 88.1 fL 79.0-92.2 (test code = 753) MEAN CORPUSCULAR HEMOGLOBIN 28.6 pg 25.7-32.2 (BEAKER) (test code = 751) MEAN CORPUSCULAR HEMOGLOBIN CONC 32.4 GM/DL 32.3-36.5 (BEAKER) (test code = 752) RED CELL DISTRIBUTION WIDTH 12.9 % 11.6-14.4 (BEAKER) (test code = 412) PLATELET COUNT (BEAKER) (test 132 K/CU MM 150-450 L code = 756) MEAN PLATELET VOLUME (BEAKER) 11.0 fL 9.4-12.4 (test code = 754) NUCLEATED RED BLOOD CELLS 0 /100 WBC 0-0 (BEAKER) (test code = 413) CBC (HEMOGRAM ONLY)2019-12-29 00:15:00 Test Item Value Reference Range Interpretation Comments WHITE BLOOD CELL COUNT (BEAKER) 5.4 K/ L 3.5-10.5 (test code = 775) RED BLOOD CELL COUNT (BEAKER) 2.61 M/ L 4.63-6.08 L (test code = 761) HEMOGLOBIN (BEAKER) (test code = 7.5 GM/DL 13.7-17.5 L 410) HEMATOCRIT (BEAKER) (test code = 22.9 % 40.1-51.0 L 411) MEAN CORPUSCULAR VOLUME (BEAKER) 87.7 fL 79.0-92.2 (test code = 753) MEAN CORPUSCULAR HEMOGLOBIN 28.7 pg 25.7-32.2 (BEAKER) (test code = 751) MEAN CORPUSCULAR HEMOGLOBIN CONC 32.8 GM/DL 32.3-36.5 (BEAKER) (test code = 752) RED CELL DISTRIBUTION WIDTH 12.9 % 11.6-14.4 (BEAKER) (test code = 412) PLATELET COUNT (BEAKER) (test 125 K/CU MM 150-450 L code = 756) MEAN PLATELET VOLUME (BEAKER) 10.8 fL 9.4-12.4 (test code = 754) NUCLEATED RED BLOOD CELLS 0 /100 WBC 0-0 (BEAKER) (test code = 413) Prepare Leuko-Red [id number] 23:54:00 Test Item Value Reference Range Interpretation Comments CROSSMATCH (test code = COMPATIBLE 2264) Unit ABO (test code = A Neg 1868491) UNIT NUMBER (test code = [id number] 934-0) Status (test code = 6995471) WORK IN PROGRESS Blood Bank Product (test RED BLOOD CELLS code = 2263) PRODUCT CODE (test code = N6026P92 933-2) [facility] (HEMOGRAM ONLY)2019-12-28 18:11:00 Test Item Value Reference Range Interpretation Comments WHITE BLOOD CELL COUNT (BEAKER) 6.1 K/ L 3.5-10.5 (test code = 775) RED BLOOD CELL COUNT (BEAKER) 2.54 M/ L 4.63-6.08 L (test code = 761) HEMOGLOBIN (BEAKER) (test code = 7.4 GM/DL 13.7-17.5 L 410) HEMATOCRIT (BEAKER) (test code = 22.9 % 40.1-51.0 L 411) MEAN CORPUSCULAR VOLUME (BEAKER) 90.2 fL 79.0-92.2 (test code = 753) MEAN CORPUSCULAR HEMOGLOBIN 29.1 pg 25.7-32.2 (BEAKER) (test code = 751) MEAN CORPUSCULAR HEMOGLOBIN CONC 32.3 GM/DL 32.3-36.5 (BEAKER) (test code = 752) RED CELL DISTRIBUTION WIDTH 13.0 % 11.6-14.4 (BEAKER) (test code = 412) PLATELET COUNT (BEAKER) (test 124 K/CU MM 150-450 L code = 756) MEAN PLATELET VOLUME (BEAKER) 11.1 fL 9.4-12.4 (test code = 754) NUCLEATED RED BLOOD CELLS 0 /100 WBC 0-0 (BEAKER) (test code = 413) CBC (HEMOGRAM ONLY)2019-12-28 13:07:00 Test Item Value Reference Range Interpretation Comments WHITE BLOOD CELL COUNT (BEAKER) 5.8 K/ L 3.5-10.5 (test code = 775) RED BLOOD CELL COUNT (BEAKER) 2.49 M/ L 4.63-6.08 L (test code = 761) HEMOGLOBIN (BEAKER) (test code = 7.2 GM/DL 13.7-17.5 L 410) HEMATOCRIT (BEAKER) (test code = 22.0 % 40.1-51.0 L 411) MEAN CORPUSCULAR VOLUME (BEAKER) 88.4 fL 79.0-92.2 (test code = 753) MEAN CORPUSCULAR HEMOGLOBIN 28.9 pg 25.7-32.2 (BEAKER) (test code = 751) MEAN CORPUSCULAR HEMOGLOBIN CONC 32.7 GM/DL 32.3-36.5 (BEAKER) (test code = 752) RED CELL DISTRIBUTION WIDTH 12.9 % 11.6-14.4 (BEAKER) (test code = 412) PLATELET COUNT (BEAKER) (test 107 K/CU MM 150-450 L code = 756) MEAN PLATELET VOLUME (BEAKER) 11.2 fL 9.4-12.4 (test code = 754) NUCLEATED RED BLOOD CELLS 0 /100 WBC 0-0 (BEAKER) (test code = 413) POC-Glucose [id number] 05:44:00 Test Item Value Reference Range Interpretation Comments POC-Glucose Meter (test 112 mg/dL 70-110 H : TE STED AT [facility] code = 1538) [address] [facility], 770 30: Community Service Director/Techni carlota ID = [id number] for MONSERRAT HYMAN Lab Interpretation (test Abnormal code = 73974-3) [facility] [id number] 05:44:00 Test Item Value Reference Range Interpretation Comments POC-GLUCOSE METER 112 mg/dL 70-110 H : TESTED A T [facility] 67[address] (BEAKER) (test code = KIMMY Ambrocio [facility], 1538) [address]: Community Service Director/Techni carlota ID = [id number] for MONSERRAT POTTS BASIC METABOLIC [id number] 05:05:00 Test Item Value Reference Range Interpretation Comments SODIUM (BEAKER) 134 meq/L 136-145 L (test code = 381) POTASSIUM (BEAKER) 3.9 meq/L 3.5-5.1 (test code = 379) CHLORIDE (BEAKER) 107 meq/L 98-107 (test code = 382) CO2 (BEAKER) (test 24 meq/L 22-29 code = 355) BLOOD UREA NITROGEN 13 mg/dL 7-21 (BEAKER) (test code = 354) CREATININE (BEAKER) 0.71 mg/dL 0.57-1.25 (test code = 358) GLUCOSE RANDOM 123 mg/dL 70-105 H (BEAKER) (test code = 652) CALCIUM (BEAKER) 7.1 mg/dL 8.4-10.2 L (test code = 697) EGFR (BEAKER) (test 109 mL/min/1.73 ESTIM ATED GFR IS code = 1092) sq m NOT ACCURATE CREATININE CLEARANCE IN PREDICTING GLOMERULAR FILTRATION RATE . ESTIMATED GFR I S NOT APPLICABLE FOR DIALYSIS PATIEN TS. Community Service Director ID - PIAYA LCBC (HEMOGRAM ONLY)2019-12-28 04:35:00 Test Item Value Reference Range Interpretation Comments WHITE BLOOD CELL COUNT (BEAKER) 6.6 K/ L 3.5-10.5 (test code = 775) RED BLOOD CELL COUNT (BEAKER) 2.58 M/ L 4.63-6.08 L (test code = 761) HEMOGLOBIN (BEAKER) (test code = 7.4 GM/DL 13.7-17.5 L 410) HEMATOCRIT (BEAKER) (test code = 22.7 % 40.1-51.0 L 411) MEAN CORPUSCULAR VOLUME (BEAKER) 88.0 fL 79.0-92.2 (test code = 753) MEAN CORPUSCULAR HEMOGLOBIN 28.7 pg 25.7-32.2 (BEAKER) (test code = 751) MEAN CORPUSCULAR HEMOGLOBIN CONC 32.6 GM/DL 32.3-36.5 (BEAKER) (test code = 752) RED CELL DISTRIBUTION WIDTH 13.1 % 11.6-14.4 (BEAKER) (test code = 412) PLATELET COUNT (BEAKER) (test 106 K/CU MM 150-450 L code = 756) MEAN PLATELET VOLUME (BEAKER) 11.3 fL 9.4-12.4 (test code = 754) NUCLEATED RED BLOOD CELLS 0 /100 WBC 0-0 (BEAKER) (test code = 413) CBC (HEMOGRAM ONLY)2019-12-27 23:56:00 Test Item Value Reference Range Interpretation Comments WHITE BLOOD CELL COUNT 6.5 K/ L 3.5-10.5 (BEAKER) (test code = 775) RED BLOOD CELL COUNT 2.58 M/ L 4.63-6.08 L (BEAKER) (test code = 761) HEMOGLOBIN (BEAKER) 7.7 GM/DL 13.7-17.5 L (test code = 410) HEMATOCRIT (BEAKER) 22.8 % 40.1-51.0 L (test code = 411) MEAN CORPUSCULAR 88.4 fL 79.0-92.2 VOLUME (BEAKER) (test code = 753) MEAN CORPUSCULAR 29.8 pg 25.7-32.2 HEMOGLOBIN (BEAKER) (test code = 751) MEAN CORPUSCULAR 33.8 GM/DL 32.3-36.5 HEMOGLOBIN CONC (BEAKER) (test code = 752) RED CELL DISTRIBUTION 13.1 % 11.6-14.4 WIDTH (BEAKER) (test code = 412) PLATELET COUNT 105 K/CU MM 150-[address] T (BEAKER) (test code = result s compared to 756) previous result s; clinical correl ation required. MEAN PLATELET VOLUME 11.4 fL 9.4-12.4 (BEAKER) (test code = 754) NUCLEATED RED BLOOD 0 /100 WBC 0-0 CELLS (BEAKER) (test code = 413) POCT-GLUCOSE [id number] 23:45:00 Test Item Value Reference Range Interpretation Comments POC-GLUCOSE METER 107 mg/dL 70-110 : TESTED A T [facility] 6720 (BEAKER) (test code = KIMMY [place], 1538) [address]: Community Service Director/Techni carlota ID = [id number] for YARITZA CHOWDARY POCT-GLUCOSE [id number] 18:25:00 Test Item Value Reference Range Interpretation Comments POC-GLUCOSE METER 118 mg/dL 70-110 H : TESTED A T [facility] 6720 (BEAKER) (test code = KIMMY Ambrocio [facility], 1538) [address]: Community Service Director/Techni carlota ID = [id number] for LUCILLE ROBERTO CBC (HEMOGRAM ONLY)2019-12-27 15:52:00 Test Item Value Reference Range Interpretation Comments WHITE BLOOD CELL COUNT (BEAKER) 6.2 K/ L 3.5-10.5 (test code = 775) RED BLOOD CELL COUNT (BEAKER) 2.72 M/ L 4.63-6.08 L (test code = 761) HEMOGLOBIN (BEAKER) (test code = 7.9 GM/DL 13.7-17.5 L 410) HEMATOCRIT (BEAKER) (test code = 24.1 % 40.1-51.0 L 411) MEAN CORPUSCULAR VOLUME (BEAKER) 88.6 fL 79.0-92.2 (test code = 753) MEAN CORPUSCULAR HEMOGLOBIN 29.0 pg 25.7-32.2 (BEAKER) (test code = 751) MEAN CORPUSCULAR HEMOGLOBIN CONC 32.8 GM/DL 32.3-36.5 (BEAKER) (test code = 752) RED CELL DISTRIBUTION WIDTH 13.0 % 11.6-14.4 (BEAKER) (test code = 412) PLATELET COUNT (BEAKER) (test code 24 K/CU MM 150-450 L = 756) MEAN PLATELET VOLUME (BEAKER) 11.9 fL 9.4-12.4 (test code = 754) NUCLEATED RED BLOOD CELLS (BEAKER) 0 /100 WBC 0-0 (test code = 413) POCT-GLUCOSE [id number] 15:45:00 Test Item Value Reference Range Interpretation Comments POC-GLUCOSE METER 118 mg/dL 70-110 H : TESTED A T [facility] 6720 (BEAKER) (test code = KIMMY Ambrocio [facility], 153) [address]: Community Service Director/Techni carlota ID = [id number] for KEITH AC CBC (HEMOGRAM ONLY)2019-12-27 08:51:00 Test Item Value Reference Range Interpretation Comments WHITE BLOOD CELL COUNT (BEAKER) 9.4 K/ L 3.5-10.5 (test code = 775) RED BLOOD CELL COUNT (BEAKER) 3.18 M/ L 4.63-6.08 L (test code = 761) HEMOGLOBIN (BEAKER) (test code = 9.5 GM/DL 13.7-17.5 L 410) HEMATOCRIT (BEAKER) (test code = 27.8 % 40.1-51.0 L 411) MEAN CORPUSCULAR VOLUME (BEAKER) 87.4 fL 79.0-92.2 (test code = 753) MEAN CORPUSCULAR HEMOGLOBIN 29.9 pg 25.7-32.2 (BEAKER) (test code = 751) MEAN CORPUSCULAR HEMOGLOBIN CONC 34.2 GM/DL 32.3-36.5 (BEAKER) (test code = 752) RED CELL DISTRIBUTION WIDTH 12.6 % 11.6-14.4 (BEAKER) (test code = 412) PLATELET COUNT (BEAKER) (test 106 K/CU MM 150-450 L code = 756) MEAN PLATELET VOLUME (BEAKER) 11.9 fL 9.4-12.4 (test code = 754) NUCLEATED RED BLOOD CELLS 0 /100 WBC 0-0 (BEAKER) (test code = 413) Hemoglobin [id number] 08:16:00 Test Item Value Reference Range Interpretation Comments Hemoglobin A1C (test code = 4548-4) 5.5 % 4.3-6.1 Lab Interpretation (test code = Normal 44450-0) [id number] 08:16:00 Test Item Value Reference Range Interpretation Comments HEMOGLOBIN A1C (BEAKER) (test code = 5.5 % 4.3-6.1 368) ABORH, [id number] 03:54:00 Test Item Value Reference Range Interpretation Comments ABO Grouping (test code = 2588) A Rh Factor (test code = 2589) NEG [facility], [id number] 03:35:00 Test Item Value Reference Range Interpretation Comments ABO/RH AUTOMATED (BEAKER) (test A NEGATIVE code = 2260) Ab Scrn (test code = 890-4) NEGATIVE [facility] HospitalProthrombin time/[id number] 03:30:00 Test Item Value Reference Range Interpretation Comments Protime (test code = 15.6 11.9- 14.2 H 5902-2) seconds INR (test code = 1.3 <=5.9 6301-6) NORBERTO (test code = NORBERTO) Effective 02/09/2019: PT Reference Range ChangeNew: 11.9-14.2 Previous: 11.7-14.7 RECOMMENDED COUMADIN/WARFARIN INR THERAPY RANGESSTANDARD DOSE: 2.0-3.0 Includes: PROPHYLAXIS for venous thrombosis, systemic embolization; TREATMENT for venous thrombosis and/or pulmonary embolus.HIGH RISK: Target INR is 2.5-3.5 for patients wiht mechanical heart valves. Lab Interpretation Abnormal (test code = 67890-1) [facility]/[id number] 03:30:00 Test Item Value Reference Range Interpretation Comments PROTIME (BEAKER) (test code = 15.6 seconds 11.9-14.2 H 759) INR (BEAKER) (test code = 370) 1.3 <=5.9 Effective 02/09/2019: PT Reference Range ChangeNew: 11.9-14.2 Previous: 11.7- 14.7RECOMMENDED COUMADIN/WARFARIN INR THERAPY RANGESSTANDARD DOSE: 2.0-3.0 Includes: PROPHYLAXIS for venous thrombosis, systemic embolization; TREATMENT for venous thrombosis and/or pulmonary embolus.HIGH RISK: Target INR is2.5-3.5 for patients wiht mechanical heart valves.Comprehensive metabolic panel 2019-12-27 03:14:00 Test Item Value Reference Range Interpretation Comments Protein, Total (test 4.0 6.0- 8.3 gm/dL L code = 2885-2) Albumin (test code = 2.1 g/dL 3.5-5 L 25982-4) Alkaline Phosphatase 77 U/L 40-150 (test code = 6768-6) Total Bilirubin (test 1.4 mg/dL 0.2-1.2 H code = 1975-2) Sodium (test code = 131 meq/L 136-145 L 2951-2) Potassium (test code = 4.8 meq/L 3.5-5.1 2823-3) Chloride (test code = 106 meq/L 98-107 2075-0) CO2 (test code = 21 meq/L 22-29 L 2028-9) BUN (test code = 18 mg/dL 7-21 3094-0) Creatinine (test code 0.69 mg/dL 0.57-1.25 = 2160-0) Glucose (test code = 209 mg/dL 70-105 H 2345-7) Calcium (test code = 7.0 mg/dL 8.4-10.2 L 24559-1) AST (test code = 12 U/L 5-34 1920-8) ALT (test code = 12 U/L 6-55 1742-6) EGFR (test code = 113 mL/min/1.73 [place] [address]-7) NOT ACCURATE CREATININE CLEARANCE IN PREDICTING GLOMERULAR FILTRATION RATE . ESTIMATED GFR I S NOT APPLICABLE FOR DIALYSIS PATIENTS. NORBERTO (test code = NORBERTO) Community Service Director ID - BS Lab Interpretation Abnormal (test code = 31642-7) [facility] [id number] 03:14:00 Test Item Value Reference Range Interpretation Comments TOTAL PROTEIN 4.0 gm/dL 6.0-8.3 L (BEAKER) (test code = 770) ALBUMIN (BEAKER) 2.1 g/dL 3.5-5.0 L (test code = 1145) ALKALINE PHOSPHATASE 77 U/L 40-150 (BEAKER) (test code = 346) BILIRUBIN TOTAL 1.4 mg/dL 0.2-1.2 H (BEAKER) (test code = 377) SODIUM (BEAKER) (test 131 meq/L 136-145 L code = 381) POTASSIUM (BEAKER) 4.8 meq/L 3.5-5.1 (test code = 379) CHLORIDE (BEAKER) 106 meq/L 98-107 (test code = 382) CO2 (BEAKER) (test 21 meq/L 22-29 L code = 355) BLOOD UREA NITROGEN 18 mg/dL 7-21 (BEAKER) (test code = 354) CREATININE (BEAKER) 0.69 mg/dL 0.57-1.25 (test code = 358) GLUCOSE RANDOM 209 mg/dL 70-105 H (BEAKER) (test code = 652) CALCIUM (BEAKER) 7.0 mg/dL 8.4-10.2 L (test code = 697) AST (SGOT) (BEAKER) 12 U/L 5-34 (test code = 353) ALT (SGPT) (BEAKER) 12 U/L 6-55 (test code = 347) EGFR (BEAKER) (test 113 ESTIMATE D GFR IS code = 1092) mL/min/1.73 sq NOT ACCURA TE m CREATININE CLEARANCE IN PREDICTING GLOMERULAR FILTRATION RATE . ESTIMATED GFR I S NOT APPLICABLE FOR DIALYSIS PATIEN TS. Community Service Director ID - [id number] 03:10:00 Test Item Value Reference Range Interpretation Comments Magnesium (test code = 1.7 mg/dL 1.6-2.6 45202-0) NORBERTO (test code = NORBERTO) Community Service Director ID - BS Lab Interpretation (test Normal code = 23734-8) [id number] 03:10:00 Test Item Value Reference Range Interpretation Comments MAGNESIUM (BEAKER) (test code = 1.7 mg/dL 1.6-2.6 627) Community Service Director ID - BSLactic acid, [id number] 03:02:00 Test Item Value Reference Range Interpretation Comments Lactate, Venous (test code = 1.75 mmol/L 0.5-2.2 2872) NORBERTO (test code = NORBERTO) Community Service Director ID - BS Lab Interpretation (test Normal code = 26306-0) [facility] ACID, [id number] 03:02:00 Test Item Value Reference Range Interpretation Comments LACTATE BLOOD VENOUS (2) (BEAKER) 1.75 mmol/L 0.50-2.20 (test code = 2872) Community Service Director ID - BSCBC W/PLT COUNT & AUTO [id number] 03:01:00 Test Item Value Reference Range Interpretation Comments WHITE BLOOD CELL COUNT (BEAKER) 9.6 K/ L 3.5-10.5 (test code = 775) RED BLOOD CELL COUNT (BEAKER) 2.80 M/ L 4.63-6.08 L (test code = 761) HEMOGLOBIN (BEAKER) (test code = 8.3 GM/DL 13.7-17.5 L 410) HEMATOCRIT (BEAKER) (test code = 24.8 % 40.1-51.0 L 411) MEAN CORPUSCULAR VOLUME (BEAKER) 88.6 fL 79.0-92.2 (test code = 753) MEAN CORPUSCULAR HEMOGLOBIN 29.6 pg 25.7-32.2 (BEAKER) (test code = 751) MEAN CORPUSCULAR HEMOGLOBIN CONC 33.5 GM/DL 32.3-36.5 (BEAKER) (test code = 752) RED CELL DISTRIBUTION WIDTH 12.6 % 11.6-14.4 (BEAKER) (test code = 412) PLATELET COUNT (BEAKER) (test 114 K/CU MM 150-450 L code = 756) MEAN PLATELET VOLUME (BEAKER) 11.5 fL 9.4-12.4 (test code = 754) NUCLEATED RED BLOOD CELLS 0 /100 WBC 0-0 (BEAKER) (test code = 413) NEUTROPHILS RELATIVE PERCENT 86 % (BEAKER) (test code = 429) LYMPHOCYTES RELATIVE PERCENT 5 % (BEAKER) (test code = 430) MONOCYTES RELATIVE PERCENT 9 % (BEAKER) (test code = 431) EOSINOPHILS RELATIVE PERCENT 0 % (BEAKER) (test code = 432) BASOPHILS RELATIVE PERCENT 0 % (BEAKER) (test code = 437) NEUTROPHILS ABSOLUTE COUNT 8.25 K/ L 1.78-5.38 H (BEAKER) (test code = 670) LYMPHOCYTES ABSOLUTE COUNT 0.50 K/ L 1.32-3.57 L (BEAKER) (test code = 414) MONOCYTES ABSOLUTE COUNT (BEAKER) 0.83 K/ L 0.30-0.82 H (test code = 415) EOSINOPHILS ABSOLUTE COUNT 0.01 K/ L 0.04-0.54 L (BEAKER) (test code = 416) BASOPHILS ABSOLUTE COUNT (BEAKER) 0.01 K/ L 0.01-0.08 (test code = 417) IMMATURE GRANULOCYTES-RELATIVE 0 % 0-1 PERCENT (BEAKER) (test code = 2801) RAD, CHEST, 1 VIEW, NON [id number] 02:35:00Reason for exam:->c/f aspirationShould this be performed at the bedside?->YesFINAL REPORT Chest one view. Clinical history: c/f aspiration Comparison: Non e. Technique: A single frontal view of the chest was obtained. Findings:There is a right IJ Port-A-Cath with tip in the SVC.The heart is normal in size. The aorta is uncoiled. There are bibasilar airspace opacities suspicious for pneumonia. There is no pleural effusion or pneumothorax. The bony thorax is unremarkable. Signed: Eliceo Pierce Verified Date/Time: 12/27/2019 02:35:34 XR chest 1 view portable / [id number] 02:35:00 Interface, External Ris In - 12/27/2019 2:38 AM CDTFINAL REPORT Chest one view. Clinical history: c/f aspiration Comparison: None. Technique: A single frontal view of the chestwas obtained. Findings:There is a right IJ Port-A-Cath with tip in the SVC.The heart is normal in size. The aorta is uncoiled. There are bibasilar airspace opacities suspicious for pneumonia. There isno pleural effusion or pneumothorax. The bony thorax is unremarkable. Signed: Eliceo Pierce Verified Date/Time: 12/27/2019 02:35:34 [facility]FL[facility], NON-SPECIFIC, UP TO 1 [id number] 12:58:00 Reason for exam:->dysphagiaFINAL REPORT A fluoroscopic unit was utilized for a procedure performed in the operating room. No interpretation was requested. Please refer to the operative report regarding findings. Please refer to PACS for patient radiation dose information. Signed: JR Benítez Robert MDReport Verified Date/Time: 12/20/2019 12:58:42 Reading Location: [facility] Radiology Reading Room [place] fluoro non-specific up to 1 [id number] 12:58:00Interface, External Ris In - 12/20/2019 1:00 PM CDTFINAL REPORT A fluoroscopic unit was utilized for a procedure performed in the operating room. No interpretation was requested. Please refer to the operative report regarding findings. Please refer to PACS for patient radiationdose information. Signed: JR Jackelin, Edilberto Englandalva Verified Date/Time: 12/20/2019 12:58:42Reading Location: [facility] Reading [facility] Port [id number] 14:56:41Hm Interface, Radiology Results - 12/09/2019 2:59 PM CDTEXAMINATION: IR PORT PLACEMENTCLINICAL HISTORY: C15.9 Malignant neoplasm of esophagus unspecified, Z01.818 Encounter for other preprocedural examination, esophageal cancerCOMPARISON: None.PROCEDURE: Venous port placementProcedural Pe rsonnelAttending physician(s): EVERARDO Rodre-procedure diagnosis: Esophageal cancerPost-procedure diagnosis: SameIndication: Administration of chemotherapyAdditional clinical history: NoneComplications: No immediate complications.IMPRESSION: Insertion of right-sided power-injectable single-lumen tunneled chest port, with catheter tip in the expected location of the cavoatrial junction.Plan: The port may be used immediately. PROCEDURE SUMMARY:- Venous access with ultrasound guidance- Tunneled port insertion under fluoroscopic guidance- Additional procedure(s): NonePre-procedureHistory and imaging of central venous access reviewed (QCDR): Yes Consent: Informed consent for the procedure including risks, benefits and alternatives was obtained and time-out was performed prior to the procedure.Preparation (MIPS): The site was prepared and draped using all elements of maximal sterile barrier technique including sterile gloves, sterile gown, cap, mask, large sterile sheet, sterile ultrasound probe cover, hand hygiene and cutaneous antisepsis with 2% chlorhexidine. Medical reason for site preparation exception (MIPS): Not applica bleAnesthesia/sedationLevel of anesthesia/sedation: Moderate sedation (conscious sedation)Anesthesia/sedation administered by: Independent trained observer under attending supervision with continuous monitoring of the patients level of consciousness and physiologic statusTotal intra-service sedation time (minutes): 43AccessLocal anesthesia was administered. The vessel was sonographically evaluated and determined to be patent. Real time ultrasound was used to visualize needle entry into the vessel and a permanent image was not stored.Vein accessed: Internal jugular veinAccess technique: Micropuncture set with 21 gauge needlePort placementAn incision was made at the upper chest, [...] fluoroscopically verified and a permanent image was stored.Port placed: AngioRedicam SmartPortCatheter size (Burundian): 6Catheter flush: Heparin (100 units/mL)ClosureThe access site and incision were closed and sterile dressing(s) were applied.Access site closure technique: Tissue adhesiveIncision closure technique: Absorbable suture and tissue adhesivePatient discharged from procedure suite with device accessed: NoContrastContrast agent: NoneContrast volume (mL): 0Radiation DoseReference air kerma (mGy): 7 Additional DetailsAdditional description of procedure: NoneEquipment details: NoneSpecimens removed: NoneEstimated blood loss (mL): Less than 10Standardized report: [id number] MethodistXR Chest External [id number] 20:37:35This exam was not acquired at a [facility] facility and has not been interpreted by a [facility] Provider. The exam was imported into our imaging system.[place] MethodistCT Abd/Pelvic External [id number] 20:37:05This exam was not acquired at a [facility] facility and has not been interpreted by a [facility] Provider. The exam was imported into our imaging system.[place] MethodistCancer antigen [id number] 13:00:57 Test Item Value Reference Range Interpretation Comments CA 19-9 (test code 1 U/mL 0-35 The Michael Sonido 8000 CA19-9 = 1006) immunoassay was used. Results obtained with d ifferent assay methods or kits should not be used interchang eably and may be different. Frankie GauthierCarcinoembryonic antigen (CEA)2019-12-07 13:00:10 Test Item Value Reference Range Interpretation Comments CEA (test code = 3.3 ng/mL 0-3.8 Reference r yanely for heavy 2039-02) smokers: 0.0 - 5.5 ng/mLThe MICHAEL Sonido 8000 CEA immunoassay was used. Results obtaine d with different assay methods or kits should not be used interchangeably and may be different. Frankie GauthierPartial thromboplastin time, [id number] 12:45:04 Test Item Value Reference Range Interpretation Comments PTT (test code = 27.8 23.0- 36.0 [place] [address]-4) unfractionated heparin is61.0-112.0 se conds which corresponds to Anti-Xa0.3-0.7 U/ml. Frankie GauthierProthrombin time with [id number] 12:44:23 Test Item Value Reference Range Interpretation Comments Prothrombin time (test 13.3 11.5- 14.5 sec code = 5902-2) INR (test code = 1.0 The Interna tional 38542-2) Normalized Rati o (INR) is a therapeutic m onitoring tool for patien ts who are stable on oral anticoagulant t herapy. An INR of 2.0-3.0 is suggested for d eep vein thrombosis/pulm onary embolism. Frankie GauthierXR Chest 2 [id number] 12:38:27Hm Interface, Radiology Results 12/07/2019 12:41 PM CDTEXAMINATION: XR CHEST 2 VWCLINICAL HISTORY: C15.9 Malignant neoplasm of esophagus unspecified, esopahgeal cancerCOMPARISON: NoneIMPRESSION:1.Examination was performed with nipple markers.2.No pulmonary infiltrates or nodules are seen.3.Heart size within normal limits. Vessels are not congested.[id number] Gauthier
[2020-03-17 16:21] LABS: Absolute Lymphocytes (CBC) 0.9 K/uL (0.7-4.9); Basophils % 0.6 % (0-1.3); Hematocrit 37.3 % (39.6-49.0); Lymphocytes % 38.7 % (15.3-44.8); MPV 9.3 fL (7.6-11.3); RBC Red Blood Cell Count 4.13 M/uL (4.33-5.43)
[2020-03-17] MEDS ORDERED: D5 0.45 NS 1,000 ML IV ONE (16:26)
[2020-03-17 16:41] LABS: ALT/SGPT 22 U/L (12-78); AST/SGOT 20 U/L (15-37); Albumin 2.7 g/dL (3.4-5.0); Alkaline Phosphatase 102 U/L (45-117); BUN Blood Urea Nitrogen 10 mg/dL (7-18); Bicarbonate 24 mmol/L (21-32); Bilirubin Direct 0.3 mg/dL (0-0.2); Bilirubin Total 0.8 mg/dL (0.2-1.0); Glucose Level 94 mg/dL (74-106); Lipase 83 U/L (73-393); Potassium 3.6 mmol/L (3.5-5.1); Protein, Total 6.2 g/dL (6.4-8.2); Sodium Level 136 mmol/L (136-145)
--- NOTE | 2020-03-17 17:15 | EDPHYS ---
Physician Documentation [facility] Name: Sagrario Sood Age: 69 yrs Sex: Male : 1950 Arrival Date: 03/17/2020 Time: 15:04 Bed 5 Private MD: Leonard Arredondo T ED Physician Rosanna Oneill HPI: 03/17 15:52 This 69 yrs old Male presents to ER via Ambulatory with complaints of ma2 Difficulty Swallowing. 15:52 Onset: The symptoms/episode began/occurred gradually, 2 day(s) ago. Associated signs ma2 and symptoms: Pertinent negatives: diaphoresis, hemoptysis, nausea, visual changes. Severity of symptoms: At their worst the symptoms were moderate in the emergency department the symptoms are unchanged. The patient has experienced similar episodes in the past. hx of esophageal cancer, had a stent that fell into his stomach last week evidenced by xr.. he usually able to eat soft food, however he is unable to do that since this morning, unable to drink water. 15:55 he want to be transferred to [facility]. 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 - Social history:: Patient/guardian denies using alcohol, street drugs, The patient lives with family, Smoking status: Patient denies any tobacco usage or history of. - Family history:: not pertinent. ROS: 15:55 Constitutional: Negative for fever, chills, and weight loss. ma2 15:55 All other systems are negative. Exam: 15:55 Constitutional: This is a well developed, well nourished patient who is awake, alert, ma2 and in no acute distress. Chest/axilla: Normal chest wall appearance and motion. Nontender with no deformity. No lesions are appreciated. Cardiovascular: Regular rate and rhythm with a normal S1 and S2. No gallops, murmurs, or rubs. Normal PMI, no JVD. No pulse deficits. Respiratory: Lungs have equal breath sounds bilaterally, clear to auscultation and percussion. No rales, rhonchi or wheezes noted. No increased work of breathing, no retractions or nasal flaring. Abdomen/GI: Soft, non-tender, with normal bowel sounds. No distension or tympany. No guarding or rebound. No evidence of tenderness throughout. MS/ Extremity: Pulses equal, no cyanosis. Neurovascular intact. Full, normal range of motion. Neuro: Awake and alert, GCS 15, oriented to person, place, time, and situation. Cranial nerves II-XII grossly intact. Motor strength 5/5 in all extremities. Sensory grossly intact. Cerebellar exam normal. Normal gait. Vital Signs: 16:00 BP 120 / 75; Pulse 65; Resp 18; Pulse Ox 97% on R/A; ph 16:25 Temp 97.9(TE); ph 16:39 BP 121 / 80; Pulse 61; Resp 18; Pulse Ox 98% on R/A; ph 17:45 BP 129 / 82; Pulse 56; Resp 18; Pulse Ox 98% on R/A; ph 18:46 BP 137 / 65; Pulse 62; Resp 18; Temp 97.5; Pulse Ox 100% ; ph 19:14 BP 139 / 81; Pulse 65; Resp 19; Temp 98.2; Pulse Ox 99% ; rr5 MDM: 15:24 Patient medically screened. [facility] 15:55 Differential diagnosis: unable to swallow likely d/t esophageal obstruction, stent ma2 failure vs esophageal cancer. 17:12 Data reviewed: vital signs, nurses notes. Counseling: I had a detailed discussion with [facility] the patient and/or guardian regarding: the historical points, exam findings, and any diagnostic results supporting the discharge/admit diagnosis, the presence of at least one elevated blood pressure reading (>120/80) during this emergency department visit, the need for outpatient follow up. 17:13 ED course: discussed with dr. Goodrich at [facility] he will arrange for transfer . [facility] 03/17 15:45 Order name: Basic Metabolic Panel; Complete Time: 16:49 [facility] 03/17 15:45 Order name: CBC with Diff; Complete Time: 18:00 [facility] 03/17 15:45 Order name: Hepatic Function; Complete Time: 16:49 [facility] 03/17 15:45 Order name: Lipase; Complete Time: 16:49 [facility] 03/17 17:18 Order name: CBC Smear Scan; Complete Time: 18:00 [facility] 03/17 15:45 Order name: IV Saline Lock; Complete Time: 16:25 [facility] 03/17 15:45 Order name: Labs collected and sent; Complete Time: 16:25 ma2 Administered Medications: 16:25 Drug: Dextrose 5 % in 1/2 Normal Saline with KCl 10 mEq/L 1000 ml Route: IV; Rate: 100 ph ml/hr; Site: left forearm; 19:07 Follow up: Response: No adverse reaction; IV Status: Infusion continued upon transfer ph Disposition: 03/17/20 17:15 Transfer ordered to [facility]. Diagnosis are Dysphagia, Esophageal obstruction. - Reason for transfer: Higher level of care. - Accepting physician is Deicker. - Condition is Stable. - Problem is new. - Symptoms are unchanged. Signatures: Dispatcher [employer] [facility] Reema Samayoa RN RN Rosanna Oneill MD MD ma2 Matthew Enriquez RN RN rr5 Corrections: (The following items were deleted from the chart) 17:18 17:15 03/17/2020 17:15 Transfer ordered to [facility]. Diagnosis is Dysphagia. ma2 Reason for transfer: Higher level of care. Accepting physician is Deicker. Condition is Stable. Problem is new. Symptoms are unchanged. ma2 19:28 17:18 03/17/2020 17:15 Transfer ordered to [facility]. Diagnosis is Dysphagia; rr5 Esophageal obstruction. Reason for transfer: Higher level of care. Accepting physician is Deicker. Condition is Stable. Problem is new. Symptoms are unchanged. ma2
--- NOTE | 2020-03-17 17:15 | ER ---
Nurse's Notes [facility] Name: Sagrario Sood Age: 69 yrs Sex: Male : 1950 Arrival Date: 03/17/2020 Time: 15:04 Bed 5 Private MD: Leonard Arredondo T Diagnosis: Dysphagia;Esophageal obstruction Presentation: 03/17 15:30 Chief complaint: Spouse and/or significant other states: difficulty breathing and dm5 difficulty swallowing. Pt has history of esophageal cancer and esophageal stents placed. Coronavirus screen: Surgical mask placed on patient. Patient moved to private room, placed in contact and droplet isolation with eye protection until further assessment. Patient denies a cough. Patient reports shortness of breath or difficulty breathing. Patient denies measured and/or subjective temperature greater than 100.4F prior to today's visit. Patient denies travel on a cruise ship or to a country the [facility]NOTE 2[place] currently lists as an affected area. Patient denies contact with known and/or suspected case of COVID-19. Ebola Screen: Patient negative for fever greater than or equal to 101.5 degrees Fahrenheit, and additional compatible Ebola Virus Disease symptoms Patient denies exposure to infectious person. Patient denies travel to an Ebola-affected area in the 21 days before illness onset. No symptoms or risks identified at this time. Risk Assessment: Do you want to hurt yourself or someone else? Patient reports no desire to harm self or others. Note Oncologist (kenia out to Moriah) asks that we call following evaluation [phone], GI doc is Purnima [phone], [phone]. 15:30 Method Of Arrival: Ambulatory dm5 15:30 Acuity: PHILL 3 dm5 16:24 Initial Sepsis Screen: Does the patient meet any 2 criteria? No. Patient's initial ph sepsis screen is negative. Does the patient have a suspected source of infection? No. Patient's initial sepsis screen is negative. Onset of symptoms was March 17, 2020. 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 - Social history:: Patient/guardian denies using alcohol, street drugs, The patient lives with family, Smoking status: Patient denies any tobacco usage or history of. - Family history:: not pertinent. Screenin:24 Abuse screen: Denies threats or abuse. Denies injuries from another. Nutritional ph screening: No deficits noted. Tuberculosis screening: No symptoms or risk factors identified. Fall Risk None identified. Assessment: 16:26 General: Appears in no apparent distress. comfortable, slender, well groomed, Behavior ph is calm, cooperative, appropriate for age, Denies fever. Pain: Complains of pain in throat. Neuro: Level of Consciousness is awake, alert, obeys commands, Oriented to person, place, time, situation. Neuro: Reports difficulty swallowing hx of esophageal cancer. Cardiovascular: Reports fatigue, shortness of breath, Denies chest pain, nausea, vomiting, Capillary refill < 3 seconds in bilateral fingers Patient's skin is warm and dry. Respiratory: Reports shortness of breath at rest Airway is patent Respiratory effort is even, unlabored, Respiratory pattern is regular, symmetrical. GI: No signs and/or symptoms were reported involving the gastrointestinal system. Derm: Skin is intact, is fragile, is thin, Skin is pink, warm \\T\\ dry. Musculoskeletal: Circulation, motion, and sensation intact. Range of motion: intact in all extremities. 17:45 Reassessment: Patient appears in no apparent distress at this time. Patient and/or ph family updated on plan of care and expected duration. Pain level reassessed. Patient is alert, oriented x 3, equal unlabored respirations, skin warm/dry/pink. 18:25 Reassessment: Patient appears in no apparent distress at this time. Patient and/or ph family updated on plan of care and expected duration. Pain level reassessed. Patient is alert, oriented x 3, equal unlabored respirations, skin warm/dry/pink. Report called to Gloria SMALLS at [facility], pt requesting pudding which was provided, pt tolerating well , states, " I could only take a few bites but it went down okay." Awaiting EMS for transport. 19:12 General: Appears in no apparent distress. comfortable, Behavior is calm, cooperative, rr5 appropriate for age. Neuro: Level of Consciousness is awake, alert, obeys commands, Oriented to person, place, time, situation. Cardiovascular: Capillary refill < 3 seconds Patient's skin is warm and dry. Respiratory: Airway is patent Respiratory effort is even, unlabored, Respiratory pattern is regular, symmetrical. GI: GI: Reports upper abdominal pain. : No signs and/or symptoms were reported regarding the genitourinary system. EENT: Reports difficulty swallowing. Derm: Skin is intact, is healthy with good turgor, Skin temperature is warm. Musculoskeletal: Circulation, motion, and sensation intact. Capillary refill < 3 seconds. 19:25 Reassessment: Patient appears in no apparent distress at this time. Patient is alert, rr5 oriented x 3, equal unlabored respirations, skin warm/dry/pink. report given to [facility] EMS awake alert [facility] 15/15 ambulatory no complaints made. vitally stable. with IV cannula intact ongoing fluid at 100 ml/hr infusing well. Vital Signs: 16:00 BP 120 / 75; Pulse 65; Resp 18; Pulse Ox 97% on R/A; ph 16:25 Temp 97.9(TE); ph 16:39 BP 121 / 80; Pulse 61; Resp 18; Pulse Ox 98% on R/A; ph 17:45 BP 129 / 82; Pulse 56; Resp 18; Pulse Ox 98% on R/A; ph 18:46 BP 137 / 65; Pulse 62; Resp 18; Temp 97.5; Pulse Ox 100% ; ph 19:14 BP 139 / 81; Pulse 65; Resp 19; Temp 98.2; Pulse Ox 99% ; rr5 ED Course: 15:04 Patient arrived in ED. mr 15:05 Leonard Arredondo MD is Private Physician. mr 15:24 Rosanna Oneill MD is Attending Physician. ma2 15:42 Triage completed. dm5 15:56 Reema Samayoa, SERINA is Primary Nurse. ph 16:00 Arm band placed on Patient placed in an exam room. ph 16:26 Initial lab(s) drawn, by me, sent to lab. Inserted saline lock: 22 gauge in left ph forearm, using aseptic technique. Blood collected. 16:28 Patient has correct armband on for positive identification. Placed in gown. Bed in low ph position. Call light in reach. Side rails up X 1. Pulse ox on. NIBP on. Door closed. Noise minimized. Lights dimmed. Warm blanket given. Pillow given. 19:06 No provider procedures requiring assistance completed. Patient transferred, IV remains ph in place. Administered Medications: 16:25 Drug: Dextrose 5 % in 1/2 Normal Saline with KCl 10 mEq/L 1000 ml Route: IV; Rate: 100 ph ml/hr; Site: left forearm; 19:07 Follow up: Response: No adverse reaction; IV Status: Infusion continued upon transfer ph Outcome: 17:15 ER care complete, transfer ordered by MD. carlton 19:06 Transferred by ground EMS to [facility]. ph 19:06 Condition: stable 19:06 Instructed on the need for transfer. 19:28 Patient left the ED. rr5 Signatures: Tamara Stern RN RN dm5 Alida Arechiga Patricia, RN RN ph Alzahri, Mohammad, MD MD [facility] Matthew Enriquez RN RN rr5
[2020-03-17 17:17] LABS: Anisocytosis 1+; Blood Morphology Comment NOTED (NOT SEEN); Platelet Estimate DECR; Urine White Blood Cell Casts OK
[2020-03-17 19:45] VITALS: BP 139/81; TEMP 98.2; O2SAT 99
== END 2020-03-17 19:28 | disposition short-term general hospital (02) ==
LOC: ER 15:01
DX: K22.2 Esophageal obstruction (principal); I10 Essential (primary) hypertension; Z85.01 Personal history of malignant neoplasm of esophagus; Z85.89 Personal history of malignant neoplasm of other organs and systems; Z85.05 Personal history of malignant neoplasm of liver; Z88.2 Allergy status to sulfonamides; Z79.82 Long term (current) use of aspirin
CPT/HCPCS: 96365; 85025; 80048; 36415; 80076; 83690; 99285; 96366; J7799

== ENCOUNTER 2020-04-14 03:24 | Emergency (ER) | payer BC, OTHER ==
--- OUTSIDE RECORDS SUMMARY | 2020-04-14 03:30 | XMS REPORT | Clinical Summary ---
:1950 Author Organization [facility] Address [address] [place] [address] Care Team Providers Name Role Phone Carlos [...] Testing Julia Felton MD 12/15/2019 Travel after 04/14/2019 Social History Tobacco Use Types Packs/Day Years [...] Not on file Implants Implanted Type Area Chainstitch Seat Joiner Device Shelf Model / Identifier Expiration Serial / Lot Date Stent Esoph Wallflx [id number] - [id number] IMPLANT[employer] 08/18/2020 [id number] / Implanted: Qty: 1 on 12/20/2019 by Julia Felton MD / [id number] Procedures Procedure Name Priority Date/Time Associated Diagnosis [...] unspecified location (HCC) Special Needs (C-ARM) after 04/14/2019 Results EKG-SCANNED (01/02/2020 3:40 PM CDT) Narrative [...] included. WBC 4.8 3.5 - 10.5 K/L [facility] RBC 2.58 (L) 4.63 - 6.08 M/L [facility] Hemoglobin 7.5 (L) 13.7 - 17.5 GM/DL [facility] Hematocrit 22.9 (L) 40.1 - 51.0 % [facility] MCV 88.8 79.0 - 92.2 fL [facility] MCH 29.1 25.7 - 32.2 pg [facility] MCHC 32.8 32.3 - 36.5 GM/DL [facility] RDW 12.9 11.6 - 14.4 % [facility] Platelets 160 150 - 450 K/CU MM [facility] MPV 11.0 9.4 - 12.4 fL [facility] nRBC 0 0 - 0 /100 WBC [facility] % Neutros 42 % [facility] % Lymphs 29 % [facility] % Monos 19 % [facility] % Eos 10 % [facility] % Baso 0 % [facility] # Neutros 2.00 1.78 - 5.38 K/L [facility] # Lymphs 1.36 1.32 - 3.57 K/L [facility] # Monos 0.88 (H) 0.30 - 0.82 K/L [facility] # Eos 0.48 0.04 - 0.54 K/L [facility] # Baso 0.02 0.01 - 0.08 K/L [facility] Immature Granulocytes-Relative 0 0 - 1 % C [facility] Specimen Blood Performing Organization Address City/State/Zipcode Phone Number [facility] [address] [place] [address] CENTER CBC (Hemogram only) (12/29/2019 12:37 PM CDT)Only the most recent of9 results within the time period is included. WBC 5.1 3.5 - 10.5 K/L [facility] RBC 2.58 (L) 4.63 - 6.08 M/L [facility] Hemoglobin 7.7 (L) 13.7 - 17.5 GM/DL [facility] Hematocrit 23.5 (L) 40.1 - 51.0 % [facility] MCV 91.1 79.0 - 92.2 fL [facility] MCH 29.8 25.7 - 32.2 pg [facility] MCHC 32.8 32.3 - 36.5 GM/DL [facility] RDW 13.0 11.6 - 14.4 % [facility] Platelets 137 (L) 150 - 450 K/CU MM [facility] MPV 10.8 9.4 - 12.4 fL [facility] nRBC 0 0 - 0 /100 WBC [facility] Specimen Blood Performing Organization Address City/State/Zipcode Phone Number [facility] [address] [place] [address] CENTER Basic Metabolic Panel (12/29/2019 5:42 AM CDT)Only the most recent of2 results within the time period is included. Sodium 134 (L) 136 - 145 meq/L [facility] Potassium 3.5 3.5 - 5.1 meq/L [facility] Chloride 105 98 - 107 meq/L [facility] CO2 26 22 - 29 meq/L [facility] BUN 7 7 - 21 mg/dL [facility] Creatinine 0.68 0.57 - 1.25 mg/dL [facility] Glucose 108 (H) 70 - 105 mg/dL [facility] Calcium 7.5 (L) 8.4 - 10.2 mg/dL [facility] [place] EGFR 115Comment: ESTIMATED GFR IS mL/min/1.73 sq m CH I [facility] NOT ACCURATE CREATININE ME DICAL CENTER CLEARANCE IN PREDICTING GLOMERULAR FILTRATION RATE. ESTIMATED GFR IS NOT APPLICABLE FOR DIALYSIS PATIENTS. Specimen Blood Narrative Performed At Inspector Poising NADE[place] - BRENDA Lyon [facility] Performing Organization Address [facility] Cent[facility]ode Phone Number [facility] [address] [place] [address] CENTER Prepare Leuko-Red RBC (12/28/2019 11:54 PM CDT) CROSSMATCH COMPATIBLE SAFETRACE TX Unit ABO A Neg SAFETRACE TX UNIT NUMBER [id number] SAFETRACE TX Status WORK IN PROGRESS SAFETRACE TX Blood Bank Product RED BLOOD CELLS SAFETRACE TX PRODUCT CODE [id number] SAFETRACE TX CROSSMATCH COMPATIBLE SAFETRACE TX Unit ABO A Neg SAFETRACE TX UNIT NUMBER [id number] SAFETRACE TX Status TX_TIMEINCHART SAFETRACE TX Blood Bank Product RED BLOOD CELLS SAFETRACE TX PRODUCT CODE [id number] SAFETRACE TX CROSSMATCH COMPATIBLE SAFETRACE TX Unit ABO A Neg SAFETRACE TX UNIT NUMBER [id number] SAFETRACE TX Status WORK IN PROGRESS SAFETRACE TX Blood Bank Product RED BLOOD CELLS SAFETRACE TX PRODUCT CODE [id number] SAFETRACE TX CROSSMATCH COMPATIBLE SAFETRACE TX Unit ABO A Neg SAFETRACE TX UNIT NUMBER [id number] SAFETRACE TX Status WORK IN PROGRESS SAFETRACE TX Blood Bank Product RED BLOOD CELLS SAFETRACE TX PRODUCT CODE [id number] SAFETRACE TX Specimen Other Performing Organization Address [facility] Phone Number SAFETRACE [place] POC-Glucose meter (12/28/2019 5:30 AM CDT)Only the most recent of4 results within the time period is included. POC-Glucose Meter 112 (H)Comment: : TESTED 70 - 110 mg/dL [facility] [address] [facility], [id number]: Inspector Poising/Tester Electronic Scale ID = [id number] for MONSERRAT HYMAN Specimen Blood Performing Organization Address [facility]/Zipcode Phone Number [facility] [address] [place] [address] CENTER REPORT OF PROCEDURE - ENDOSCOPY URL (12/27/2019 12:49 PM CDT) Narrative Performed At This result has an attachment that is no t available. Transfuse Leuko-Red RBC (12/27/2019 7:19 AM CDT)Hemoglobin A1c (12/27/2019 4:55 AM CDT) Hemoglobin A1C 5.5 4.3 - 6.1 % [facility] Specimen Blood Performing Organization Address City/[facility]/Zipcode Phone Number [address] [address] CENTER Blood Culture - Routine (Left Venipuncture) (12/27/2019 4:54 AM CDT)Only the most recent of2 resultswithin the time period is included. Result No growth in 5 days [facility] Specimen Blood Performing Organization Address [facility] Phone Number [address] [address] CENTER ABORH, manual (12/27/2019 3:11 AM CDT) ABO Grouping [facility] Rh Factor [facility]G [facility] Specimen Blood Performing Organization Address [facility] Phone Number [address] [address] Type and screen, automated (12/27/2019 2:52 AM CDT) ABO/RH AUTOMATED (BEAKER) A NEGATIVE [facility] Ab Scrn NEGATIVE [facility] Specimen Blood Performing Organization Address [facility] Centercode Phone Number [address] [address] Lactic acid, venous (12/27/2019 2:40 AM CDT) Lactate, Venous 1.75 0.50 - 2.20 mmol/L [facility] Specimen Blood Narrative Performed At Inspector Poising ID - BS [facility] Performing Organization Address City/[facility] Centercode Phone Number [address] [address] CENTER Prothrombin time/INR (12/27/2019 2:40 AM CDT) Protime 15.6 (H) 11.9 - 14.2 seconds [facility] INR 1.3 <=5.9 [facility] Specimen Blood Narrative Performed At Effective 02/09/2019: PT Reference Range [facility] Change New: 11.9-14.2Previous: 11.7-14.7 RECOMMENDED COUMADIN/WARFARIN INR THERAPY RANGES STANDARD DOSE: 2.0-3.0Includes: PROPHYLAXIS for venous thrombosis, systemic embolization; TREATMENT for venous thrombosis and/or pulmonary embolus. HIGH RISK: Target INR is 2.5-3.5 for patients wiht mechanical heart valves. Performing Organization Address City/State/Zipcode Phone Number [address] [address] CENTER Magnesium (12/27/2019 2:40 AM CDT) Magnesium 1.7 1.6 - 2.6 mg/dL [facility] Specimen Blood Narrative Performed At Inspector Poising ID - BS [facility] Performing Organization Address City/State/Zipcode Phone Number [address] [address] CENTER Comprehensive metabolic panel (12/27/2019 2:40 AM CDT) Protein, Total 4.0 (L) 6.0 - 8.3 gm/dL [facility] ER Albumin 2.1 (L) 3.5 - 5.0 g/dL [facility] ER Alkaline Phosphatase 77 40 - 150 U/L [facility] ER Total Bilirubin 1.4 (H) 0.2 - 1.2 mg/dL [facility] ER Sodium 131 (L) 136 - 145 meq/L [facility] ER Potassium 4.8 3.5 - 5.1 meq/L [facility] Chloride 106 98 - 107 meq/L [facility] CO2 21 (L) 22 - 29 meq/L [facility] BUN 18 7 - 21 mg/dL [facility] Creatinine 0.69 0.57 - 1.25 mg/dL [facility] Glucose 209 (H) 70 - 105 mg/dL [facility] Calcium 7.0 (L) 8.4 - 10.2 mg/dL [facility] ER AST 12 5 - 34 U/L [facility] ALT 12 6 - 55 U/L [facility] ER EGFR 113Comment: ESTIMATED mL/min/1.73 sq m [facility] GFR IS NOT ACCURATE [facility] CREATININE CLEARANCE IN PREDICTING GLOMERULAR FILTRATION RATE. ESTIMATED GFR IS NOT APPLICABLE FOR DIALYSIS PATIENTS. Specimen Blood Narrative Performed At Inspector Poising ID - BS [facility] Performing Organization Address City/State/Zipcode Phone Number [facility] [address] [place] [address] CENTER XR chest 1 view portable / bedside (12/27/2019 2:28 AM CDT) Specimen Narrative Performed At FINAL REPORT [facility] Chest one view. Clinical history: c/f aspiration [...] 2:35:34 Performing Organization Address City/State/Zipcode Phone Number [facility] REPORT OF PROCEDURE - ENDOSCOPY URL [...] MD Report Verified Date/Time:12/20/2019 12:58:42 Reading Location: [facility] Reading Room Procedure Note Interface, External Ris [...] Verified Date/Time: 12/20/2019 1 2:58:42 [facility] Performing Organization Address City/State/Zipcode Phone Number GE RIS after 04/14/2019 Insurance Payer Benefit Plan / Subscriber ID Type Phone Address Group BLUE CROSS/BLUE BCBS HMO xxxxxxxxxxxx HMO/POS [phone] [id number] SHIELD BLUE/ESS[place] [address] Advance Directives For more information, please contact:[place] [id number] [place], [place] [phone] Code Status Date Activated Date Inactivated Comments Full Code 12/27/2019 1:27 AM 12/30/2019 12:58 PM This code status was determined by: Patient
--- OUTSIDE RECORDS SUMMARY | 2020-04-14 03:30 | XMS REPORT | Clinical Summary ---
:1950 Author Organization [facility] Address [address] [place] [address] Care Team Providers Name Role Phone Leonard Arredondo A Primary Care Provider Allergies Active Allergy Reactions Severity Noted Date Comments Sulfa (Sulfonamide Other (See Comments) 12/07/2019 F greg like symptoms Antibiotics) Medications Medication Sig Dispensed Refills Start End Date Status Date aspirin (ECOTRIN) 81 Take 81 mg 0 Active MG enteric coated by mouth tablet daily. pantoprazole Take 40 mg 0 Active (PROTONIX) 40 MG EC by mouth 2 0 tablet (two) times a day. ondansetron ODT Take 8 mg by 0 A ctive (ZOFRAN-ODT) 8 MG mouth 2 disintegrating tablet (two) times a day. traMADoL (ULTRAM) 50 Take 50 mg 0 Active mg tablet by mouth. 0 HYDROcodone-acetamino chronic 100 tablet 0 0 Active phen (Louisa) 10-325 pain. 1 tab 0 20 mg per po q4h prn tabletIndications: moderate chronic pain pain lisinopriL (PRINIVIL) 0 02/08/20 Discontinued 5 mg tablet 0 20 prochlorperazine Take 1 30 tablet 5 01/07/20 Exp ired (Compazine) 5 MG tablet (5 mg 0 20 tabletIndications: GE total) by junction carcinoma mouth every (HCC) 6 (six) hours as needed for nausea or vomiting for up to 30 days. ondansetron ODT Take 1 30 tablet 5 01/07/20 Expi red (Zofran ODT) 8 MG tablet (8 mg 0 20 disintegrating total) by tabletIndications: GE mouth every junction carcinoma 8 (eight) (HCC) hours as needed for nausea or vomiting for up to 30 days. dronabinoL (Marinol) Take 1 20 capsule 0 12/31/19 2.5 MG capsule capsule (2.5 0 20 mg total) by mouth 2 (two) times a day before meals for 10 days. HYDROcodone-acetamino Take 1 100 tablet 0 0 Discontinued phen (Louisa) 10-325 tablet by 0 20 (Reorder) mg per mouth every tabletIndications: 4 (four) chronic pain hours as needed for moderate pain for up to 100 doses .chronic pain. Code: C16.0 Max Daily Amount: 6 tablets HYDROcodone-acetamino Take 1 100 tablet 0 0 Discontinued phen (Louisa) 10-325 tablet by 0 20 (Reorder) mg per mouth every tabletIndications: 4 (four) chronic pain hours as needed for moderate pain for up to 100 doses .chronic pain. Code: C16.0 Max Daily Amount: 6 tablets HYDROcodone-acetamino chronic pain. 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 Liver metastases 12/07/2019 Resolved Problems Problem Noted Date Resolved Date Gastrointestinal hemorrhage associated with gastric ulcer 02/08/2020 Esophageal dysphagia 12/07/2019 02/08/2020 Encounters Date Type Specialty Care Team Description 04/12/2020 Orders Only Oncology Marly Nazario RPH 04/10/2020 Oncology Oncology Cathie, Tylor Hua RN 04/09/2020 Orders Only Oncology Pollo Carpio MD 04/09/2020 Travel 04/09/2020 Oncology Oncology CathieTylor, SERINA 04/09/2020 Telephone Oncology Pollo Carpio COVID-19 (Prima ry Dx); MD Joaquin GE junction car cinoma (HCC) 04/05/2020 Nurse Only Oncology Pollo Carpio GE junction car wardoma MD Joaquin (HCC) (Primary Dx) 04/05/2020 Travel 04/05/2020 [facility] 04/04/2020 Oncology Oncology [facility] Melita, SERINA 04/04/2020 Telephone Cardiology Jesika, Follow-up SERINA Frost 04/03/2020 Infusion Oncology Pollo Carpio GE junction car cinoma (HCC) (Primary Dx); MD Joaquin Esophageal dysp hagia 04/03/2020 Oncology Oncology [facility], Tylor Hua, SERINA 04/03/2020 Orders Only Oncology Amor Khoury RN 04/03/2020 Travel 03/28/2020 Orders Only Oncology Bobbi Fleming, [facility] 03/28/2020 [facility] 03/27/2020 Oncology Oncology [facility], [facility] Melita, SERINA 03/27/2020 Travel 03/26/2020 Infusion Oncology Pollo Carpio GE junction car cinoma (HCC) (Primary Dx); MD Joaquin Esophageal dysp hagia 03/26/2020 Oncology Oncology [facility], Tylor Hua, RN 03/26/2020 Orders Only Oncology Raul Gimenez, GE junction car cinoma Nini, [facility] (HCC) (Primary Dx) 03/26/2020 Travel 03/23/2020 [facility] 03/22/2020 Travel 03/21/2020 Travel 03/21/2020 Orders Only Oncology Goldie Lewis, GE junction carcinoma (HCC) (Primary Dx); MA Liver metastase s (HCC); Esophageal dysp hagia 03/19/2020 Surgery Gastroenterology Julia Felton W/ KATIE Severino MD 03/19/2020 Anesthesia Event Gastroenterology [facility], Juan Manuel Casey MD 03/19/2020 Oncology Oncology [facility], Tylor Hua, RN 03/17/2020 Hospital Encounter Oncology Raleigh Ortega Esophagchrissy al dysphagia (Primary Dx); - Malignant neoplasm of esophagus, unspeci fied (HCC) 03/20/2020 Andreas Bui MD 03/17/2020 Intake Access 03/17/2020 Travel 03/17/2020 Intake Access 03/14/2020 Infusion Oncology Erin Carpiok GE junction car jose Nuñez MD (HCC) (Primary Dx) 03/14/2020 Office Visit Oncology Pollo Carpio GE junction car cinoma (HCC) (Primary Dx); MD Joaquin Liver metastase s (HCC) 03/14/2020 Travel 03/13/2020 Orders Only Oncology Erin Carpiok GE junction car wardoma MD Joaquin (HCC) (Primary Dx) 03/13/2020 Oncology Oncology [facility], Survivorship Melita, SERINA 03/12/2020 Infusion Oncology Erin Carpiok GE junction car cinoma (HCC) (Primary Dx); MD Joaquin Liver metastase s (HCC) 03/12/2020 Orders Only Oncology Jamil Norman RN 03/12/2020 Orders Only Oncology Bobbi Fleming, [facility] 03/12/2020 Oncology Oncology [facility] Surviv[facility] SERINA Hua 03/12/2020 Travel 03/09/2020 Orders Only Pharmacy Antoinette Jett, [facility] 03/08/2020 Transcribe Orders Access Julia Felton Malignant neoplasm of esophagus, unspecified (HCC) (Primary Dx); MD Maycol Dysphagia, unsp ecified; Pre-operative c learance 03/07/2020 Oncology Oncology [facility], Tylor Hua, SERINA 03/07/2020 Telephone Rehabilitation Mitali Santos [facility] 02/29/2020 Nurse Only Oncology Erin Carpiok GE junction car cinoma (HCC) (Primary Dx); MD Joaquin Dehydration 02/29/2020 Orders Only Oncology Nini Tran, [facility] 02/29/2020 Travel 02/29/2020 Oncology Oncology [facility] Melita, SERINA 02/29/2020 Orders Only Oncology Jamil Norman, SERINA 02/28/2020 Oncology Oncology [facility], Survivorship Melita, SERINA 02/27/2020 Infusion Oncology Pollo Carpio GE junction car jose Nuñez MD (HCC) (Primary Dx) 02/27/2020 Oncology Oncology [facility] Surviv[facility] Melita, SERINA 02/27/2020 Travel 02/24/2020 Orders Only Pharmacy Antoinette Jett [facility] 02/22/2020 Hospital Encounter Radiology Julia Felton Abnormal findings on M.MD diagnostic imag ing of other parts of digestive tract 02/22/2020 Surgery Gastroenterology Julia Felton EGD W/ KATIE Marley W/ MD MARGUERITE Severino 02/22/2020 Anesthesia Event Gastroenterology Raj Cowart MD Crawley, Teri, RASHARD 02/22/2020 Hospital Encounter Gastroenterology Julia Felton MD 02/21/2020 Travel 02/20/2020 Travel 02/20/2020 Telephone Oncology Pollo Carpio MD 02/17/2020 Oncology Oncology [facility], [facility] Melita, SERINA 02/16/2020 Telephone Oncology Norman, Lotti GE junction car cinoma (HCC) (Primary Dx); SERINA Contreras Dysphagia, unsp ecified type 02/15/2020 Orders Only Oncology Emerson, Lotti GE junction car wardoma SERINA Contreras (HCC) (Primary Dx) 02/15/2020 Oncology Oncology [facility], [facility] Melita, SERINA 02/10/2020 Nurse Only Oncology Erin Carpiok GE junction car wardoma MD Joaquin (HCC) (Primary Dx) 02/10/2020 Travel 02/10/2020 Orders [...] Liver metastase s (HCC) 02/08/2020 Oncology Oncology [facility] Melita, SERINA 02/08/2020 Travel 01/27/2020 Office Visit Cardiology [place], Palpitations (P rimary Dx); Genevieve GE junction car cinoma (HCC) RASHARD Nicolas 01/27/2020 Nurse Only Oncology Pollo Carpio GE junction car jose Nuñez MD (HCC) (Primary Dx) 01/27/2020 Travel 01/25/2020 Infusion Oncology Pollo Carpio GE junction car jose Nuñez MD (HCC) (Primary Dx) 01/25/2020 Oncology Oncology Tylor Brand RN 01/25/2020 Travel 01/24/2020 Orders Only Pharmacy Antoinette Jett [facility] 01/23/2020 Telephone Oncology Pollo Carpio MD 01/23/2020 Travel 01/19/2020 Telephone Oncology Jamil Norman GE junction fartun Contreras RN (HCC) (Primary Dx) 01/19/2020 Orders Only Oncology Jamil Norman RN 01/12/2020 Nurse Only Oncology Pollo Carpio GE junction fartun Nuñez MD (HCC) (Primary Dx) 01/12/2020 Hospital Encounter Procedural Cardiology oPllo Carpio Encounter for MD Joaquin antineoplastic chemotherapy 01/12/2020 Travel 01/11/2020 Orders Only Oncology Bethany Santiago, GE junction carcinoma (HCC) (Primary Dx); MA Liver metastase s (HCC) 01/11/2020 Telephone Oncology Pollo Carpio MD 01/11/2020 Telephone Oncology Jamil Norman RN 01/11/2020 Travel 01/11/2020 Documentation Oncology Melita Brand RN 01/11/2020 Documentation Oncology Melita Brand RN 01/10/2020 Office Visit Oncology Pollo Carpio Gastrointestina l hemorrhage associated with gastric ulcer (Primary Dx); MD Joaquin GE junction car cinoma (HCC); Liver metastase s (HCC); Hypotension due to drugs; Esophageal dysp hagia 01/10/2020 Infusion Oncology Pollo Carpio GE junction fartun Nuñez MD (HCC) (Primary Dx) 01/10/2020 Oncology Oncology Tylor Brand RN 01/10/2020 Orders Only Oncology Bethany Santiago, Encounter fo r MA antineoplastic chemotherapy (P rimary Dx) 01/10/2020 Telephone Oncology Pollo Carpio MD 01/09/2020 Telephone Oncology Melita Brand RN 01/09/2020 Orders Only Pharmacy Antoinette Jett, [facility] 01/09/2020 Travel 01/09/2020 Documentation Oncology Melita Brand RN 01/09/2020 Telephone Oncology Pollo Carpio MD 01/06/2020 Telephone Consult Oncology Pollo Carpio junctio n carcinoma (HCC) (Primary Dx); MD Joaquin Esophageal dysp hagia; Liver metastase s (HCC) 01/06/2020 Orders Only Oncology Bethany Santiago, Encounter fo r MA antineoplastic chemotherapy (P rimary Dx) 01/04/2020 Telephone Oncology Melita Brand, SERINA 01/04/2020 Orders Only Oncology Nini Tran, [facility] 01/03/2020 Orders Only Oncology Jamil Norman RN 01/03/2020 Telephone Oncology Yelitza Foster RD 12/30/2019 Telephone Oncology Jamil Norman RN 12/28/2019 Telephone Oncology Melita Brand, SERINA 12/27/2019 Telephone Oncology Bethany Santiago, MANUELA 12/26/2019 Telephone Oncology Pollo Carpio MD 12/26/2019 Travel 12/26/2019 Documentation Oncology Nicolas Abraham RN 12/22/2019 Telephone Oncology Melita Brand RN 12/22/2019 Orders Only Oncology Bethany Santiago, Encounter fo r antineoplastic chemotherapy (Primary Dx); MA GE junction car cinoma (HCC) 12/22/2019 Orders Only Oncology Pollo Carpio MD 12/22/2019 Orders Only Oncology Nini Tran, [facility] 12/22/2019 Orders Only Oncology Jamil Norman, SERINA 12/21/2019 Telephone Oncology Pollo Carpio MD 12/21/2019 Telephone Oncology Melita Brand, SERINA 12/21/2019 Telephone Oncology Yelitza Foster, MADIE 12/21/2019 Orders Only Oncology Jamil Norman, SERINA 12/19/2019 Telephone Oncology Jamil Norman RN 12/19/2019 Telephone Oncology Yelitza Foster, MADIE 12/19/2019 Telephone Oncology Melita Brand, SERINA 12/16/2019 Telephone Oncology Melita Brand, SERINA 12/15/2019 Nurse Only Oncology Pollo Carpio GE junction car cinoma MD Joaquin (HCC) (Primary Dx) 12/14/2019 Travel 12/14/2019 Telephone Oncology Melita Brand, SERINA 12/14/2019 Social Work Oncology Melita Guzman DIVINA 12/13/2019 Infusion Oncology Pollo Carpio GE junction fartun Nuñez MD (HCC) (Primary Dx) 12/13/2019 Documentation Oncology Nini Tran, [facility] 12/13/2019 Telephone Oncology Pollo Carpio MD 12/12/2019 [...] 12/08/2019 Orders Only Oncology Pollo Carpio GE junction fartun Nuñez MD (HCC) (Primary Dx) 12/08/2019 Telephone Radiology Dolores Montanez, SERINA 12/08/2019 Oncology Oncology Tylor Brand, SERINA 12/08/2019 Documentation Medical Records Provider, Unknown 12/08/2019 Orders Only Oncology Nini Tran, [facility] 12/08/2019 Orders Only Oncology Raul Gimenez GE junction car jose Terrazas, [facility] (HCC) (Primary Dx) 12/07/2019 Hospital Encounter Radiology Pollo Carpio MD 12/07/2019 Hospital Encounter Radiology Pollo Carpio MD 12/07/2019 Hospital Encounter Radiology Pollo Carpio Malignant neoplasm of MD Joaquin esophagus, unspecified loc ation (HCC) 12/07/2019 Lab Lab Pollo Carpio Malignant neopl asm of esophagus, unspecified location (HCC); MD Joaquin Pre-op testing 12/07/2019 Consult Oncology Pollo Caprio Liver metastase s (HCC) (Primary Dx); MD Joaquin GE junction car cinoma (HCC) 12/07/2019 Orders Only Oncology Bethany Santiago, Malignant ne oplasm of MA esophagus, unspecified loc ation (HCC) (Primary Dx) 12/07/2019 Orders Only Oncology John Santiagoha, Malignant ne oplasm of esophagus, unspecified location (HCC) (Primary Dx); MA Pre-op testing 12/07/2019 Travel 12/02/2019 Telephone Oncology Pollo Carpio MD 12/01/2019 Office Visit General Surgery Theron Francis Malignant neoplasm of RMD Sindy esophagus, unspecified loc ation (HCC) (Primary Dx) 12/01/2019 Travel 11/30/2019 Travel after 04/14/2019 Family History Medical History Relation Name Comments [...] month, have you been in contact with Yes 04/09/2020 11:27 AM CDT someone who was confirmed or suspected to have Coronavirus / COVID-19? Last Filed Vital Signs Vital Sign Reading Time Taken Comments Blood Pressure 99/59 04/05/2020 2:09 PM CDT Pulse 73 04/05/2020 2:09 PM CDT Temperature 35.8 C (96.4 F) 04/05/2020 2:09 PM CDT Respiratory Rate 17 04/05/2020 2:09 PM CDT Oxygen Saturation 98% 04/05/2020 2:09 PM CDT Inhaled Oxygen Concentration - - Weight 66.8 kg (147 lb 3.2 oz) 04/05/2020 2:09 PM CDT Height 185.4 cm (6' 1") 04/05/2020 2:09 PM CDT Body Mass Index 19.42 04/05/2020 2:09 PM CDT Plan of Treatment Date Type Specialty Care Team Description 04/16/[address] Pollo Carpio rd, MD [address] [place] [address] 7[address] 04/16/2020 Infusion Oncology Pollo Carpio rd, MD [address] [place] [address] 7[address] 04/16/2020 Office Visit Oncology Pollo Carpio rd, MD [address] [place] [address] 7703 04/18/2020 Nurse Only Oncology Pollo Carpio rd, MD [address] [place] [address] 7703 04/30/2020 Infusion Oncology Pollo Carpio rd, MD [address] [place] [address] 7703 05/02/2020 Nurse Only Oncology Pollo Carpio rd, MD [address] [place] [address] 7703 05/09/2020 Office Visit Cardiology Antonio Gee MD [address] [facility] et [address] [place], [place] [address] 05/14/2020 Infusion Oncology Pollo Crapio rd, MD [address] [place] [address] 7703 05/16/2020 Nurse Only Oncology Pollo Carpio rd, MD [address] [place] [address] 7703 Health Maintenance Due Date Last Done Comments COLONOSCOPY SCREENING 1998 SHINGLES VACCINES (#1) 1998 65+ PNEUMOCOCCAL VACCINE (1 of 2 - PCV13) 2013 INFLUENZA VACCINE 04/14/2020 Implants Implanted Type Area Mayonnaise Mixer Device Shelf Model / Identifier Expiration Serial / Date Lot Port Imlpntbl Smart Port W/ Dtchd 0.4ml 6.6fr 55cm W/ Sheath - [id number] Implantable N/A: ANGIODYNAMICS 05/14/2022 [id number] HOUS / Implanted: 12/09/2019 at [facility] (Quantity not on file) Inf usion Ports N/A INC / or Accessories [id number] Stent Stent Description:digestive Stent Espgl Wallflex 10cm 23mm Flcvrd - [id number] Surgical Sten ts N/A: N/A BSC ENDOSCOPY 05/25/2021 [id number] / Implanted: 02/22/2020 at [facility] (Quantity not on file) / [id number] Procedures Procedure Name Priority Date/Time Associated Comments Diagnosis SMEAR REVIEW STAT 04/03/2020 Results for 9:34 AM CDT this procedure are in the results section. ESTIMATED GFR STAT 04/03/2020 Results for 9:34 AM CDT this procedure are in the results section. MAGNESIUM LEVEL STAT 04/03/2020 GE junction Results for 9:34 AM CDT carcinoma (HCC) this procedure are in the results section. HC COMPLETE BLD COUNT W/AUTO STAT 04/03/2020 GE junction Results for DIFF 9:34 AM CDT carcinoma (HCC) this procedure are in the results section. COMPREHENSIVE METABOLIC PANEL STAT 04/03/2020 GE junction Results for 9:34 AM CDT carcinoma (HCC) this procedure are in the results section. SMEAR REVIEW STAT 03/26/2020 Results for 9:40 AM CDT this procedure are in the results section. ESTIMATED GFR STAT 03/26/2020 Results for 9:40 AM CDT this procedure are in the results section. MAGNESIUM LEVEL STAT 03/26/2020 GE junction Results for 9:40 AM CDT carcinoma (HCC) this procedure are in the results section. COMPREHENSIVE METABOLIC PANEL STAT 03/26/2020 GE junction Results for 9:40 AM CDT carcinoma (HCC) this procedure are in the results section. HC COMPLETE BLD COUNT W/AUTO STAT 03/26/2020 GE junction Results for DIFF 9:40 AM CDT carcinoma (HCC) this procedure are in the results section. CV CARDIAC EVENT MONITOR Routine 03/21/2020 ESTIMATED GFR Routine 03/20/2020 Results for 4:27 AM CDT this procedure are in the results section. HC COMPLETE BLD COUNT W/AUTO Routine 03/20/2020 Results for DIFF 4:27 AM CDT this procedure are in the results section. BASIC METABOLIC PANEL Routine 03/20/2020 Result s for 4:27 AM CDT this procedure are in the results section. FL < 1 HOUR Routine 03/19/2020 Malignant neoplasm Results f or 11:34 AM CDT of esophagus, this unspecified (HCC) procedure are in the results section. ND AN ELECTIVE ENDOTRACHEAL Routine 03/19/2020 Results for AIRWAY 11:00 AM CDT this procedure are in the results section. ESOPHAGOGASTRODUODENOSCOPY 03/19/2020 Esophageal (EGD) 10:30 AM CDT dysphagia ESTIMATED GFR Routine 03/19/2020 Results for 3:54 AM CDT this procedure are in the results section. THYROID STIMULATING HORMONE Routine 03/19/2020 Results for 3:54 AM CDT this procedure are in the results section. T4, FREE Routine 03/19/2020 Results for 3:54 AM CDT this procedure are in the results section. PHOSPHORUS LEVEL Routine 03/19/2020 Results for 3:54 AM CDT this procedure are in the results section. MAGNESIUM LEVEL Routine 03/19/2020 Results for 3:54 AM CDT this procedure are in the results section. BASIC METABOLIC PANEL Routine 03/19/2020 Result s for 3:54 AM CDT this procedure are in the results section. HC COMPLETE BLD COUNT W/AUTO Routine 03/19/2020 Results for DIFF 3:54 AM CDT this procedure are in the results section. ESTIMATED GFR Routine 03/18/2020 Results for 4:30 AM CDT this procedure are in the results section. PHOSPHORUS LEVEL Routine 03/18/2020 Results for 4:30 AM CDT this procedure are in the results section. MAGNESIUM LEVEL Routine 03/18/2020 Results for 4:30 AM CDT this procedure are in the results section. COMPREHENSIVE METABOLIC PANEL Routine 03/18/2020 Results for 4:30 AM CDT this procedure are in the results section. HC COMPLETE BLD COUNT W/AUTO Routine 03/18/2020 Results for DIFF 4:30 AM CDT this procedure are in the results section. XR ABDOMEN 1 VW STAT 03/17/2020 Results for 10:58 PM CDT this procedure are in the results section. COVID-19 QUALITATIVE PCR Routine 03/17/2020 Res ults for 10:40 PM CDT this procedure are in the results section. ESTIMATED GFR Routine 03/17/2020 Results for 9:30 PM CDT this procedure are in the results section. PHOSPHORUS LEVEL Routine 03/17/2020 Results for 9:30 PM CDT this procedure are in the results section. MAGNESIUM LEVEL Routine 03/17/2020 Results for 9:30 PM CDT this procedure are in the results section. COMPREHENSIVE METABOLIC PANEL Routine 03/17/2020 Results for 9:30 PM CDT this procedure are in the results section. PARTIAL THROMBOPLASTIN TIME Routine 03/17/2020 Results for (PTT) 9:30 PM CDT this procedure are in the results section. PROTHROMBIN TIME WITH INR Routine 03/17/2020 Re sults for 9:30 PM CDT this procedure are in the results section. HC COMPLETE BLD COUNT W/AUTO Routine 03/17/2020 Results for DIFF 9:30 PM CDT this procedure are in the results section. ESTIMATED GFR STAT 03/12/2020 Results for 10:04 [...] 01/12/2020 Encounter fo r Results for DOPPLER (50392) 11:08 AM CDT antineoplastic this chemotherapy procedure [...] STUDY Routine 11/17/2019 Results for 8:38 AM MOLDER MEAT this procedure are in the results section. XR CHEST EXTERNAL STUDY Routine 11/17/2019 Resu lts for 8:11 AM MOLDER MEAT this procedure are in the results section. after 04/14/2019 Results Smear review (04/03/2020 9:34 AM CDT)Only the most recent of2 resultswithin the time period is included. Pathologist [facility] Platelet slide review Decreased (A) [facility] Anisocytosis Moderate [facility] Ovalocytes Moderate [facility] Specimen Performing Organization Address City/[facility] Mex[facility]ode Phone Number [facility] DEPARTMENT OF PATHOLOGY AND [address] [place] [phone] Estimated GFR (04/03/2020 9:34 AM CDT)Only the most recent of13 resultswithin the time period is included. Pathologist [facility] Estimated GFR >=90 mL/min/1.73 [facility] Comment: m2 HOSPITAL Catergory Units Interpretation G1 [...] published in 2014. Specimen Performing Organization Address City/[facility]/Zipcode Phone Number [facility] DEPARTMENT OF PATHOLOGY AND [address] [place] [address] [address] CBC with platelet and differential (04/03/2020 9:34 AM CDT)Only the most recent of13 resultswithin the time period is included. WBC 3.39 (L) 4.50 - 11.00 [facility] k/uL HOSPITAL RBC 3.54 (L) 4.40 - 6.00 [facility] m/uL HOSPITAL HGB 10.5 (L) 14.0 - 18.0 [facility] g/dL [facility] HCT 33.6 (L) 41.0 - 51.0 % [facility] MCV 94.9 82.0 - 100.0 [facility] MCH 29.7 27.0 - 34.0 pg [facility] MCHC 31.3 31.0 - 37.0 [facility] g/dL [facility] RDW - SD 75.0 (H) 37.0 - 55.0 fL [facility] MPV 12.2 8.8 - 13.2 fL [facility] Platelet count 79 (L) 150 - 400 k/uL [facility] Nucleated RBC 0.00 /100 WBC [facility] Neutrophils 48.1 39.0 - 69.0 % [facility] Lymphocytes 27.7 25.0 - 45.0 % [facility] Monocytes 23.3 (H) 0.0 - 10.0 % [facility] Eosinophils 0.3 0.0 - 5.0 % [facility] Basophils 0.3 0.0 - 1.0 % [facility] Immature granulocytes 0.3Comment: 0.0 - 1.0 % [facility] "[facility] granulocytes" (promyelocytes , myelocytes, metamyelocytes ) Specimen Blood Performing Organization Address City/[facility] Mexicocode Phone Number [facility] DEPARTMENT OF PATHOLOGY AND [address] [place] [address] [phone] [address] Magnesium level (04/03/2020 9:34 AM CDT)Only the most recent of11 resultswithin the time period is included. Pathologist Sig nature Magnesium 1.9 1.6 - 2.4 mg/dL [facility] L Specimen Blood Performing Organization Address City/[facility]/Zipcode Phone Number [facility] DEPARTMENT OF PATHOLOGY AND [address] [place] [address] [phone] [address] Comprehensive metabolic panel (04/03/2020 9:34 AM CDT)Only the most recent of11 resultswithin the time period is included. Sodium 137 135 - 148 [facility] mEq/L [facility] Potassium 4.3 3.5 - 5.0 [facility] mEq/L [facility] Chloride 105 98 - 112 [facility] mEq/L HOSPITAL CO2 20 (L) 24 - 31 mEq/L [facility] Anion gap 12@ANIO 7 - 15 mEq/L [facility] BUN 15 8 - 23 mg/dL [facility] Creatinine 0.69 (L) 0.70 - 1.20 [facility] mg/dL HOSPITAL Glucose 81 65 - 99 mg/dL [facility] Calcium 8.2 (L) 8.8 - 10.2 [facility] mg/dL [facility] Protein 5.7 (L) 6.3 - 8.3 [facility] Comment: g/dL [facility] - [place] 4.6-7.0 g/dL 1 week 4.4-7.6 g/dL 7 months-1year 5.1-7.3 g/dL 1-2 years 5.6-7.5 g/dL >3 years 6.0-8.0 g/dL 18-150 6.3-8.3 g/dL Albumin 2.4 (L) 3.5 - 5.0 [facility] g/dL [facility] A/G ratio 0.7 0.7 - 3.8 [facility] Alkaline phosphatase 114 40 - 129 U/L [facility] AST 31 10 - 50 U/L [facility] ALT 20 5 - 50 U/L [facility] Total bilirubin 0.3 0.0 - 1.2 [facility] mg/dL [facility] Specimen Blood Performing Organization Address City/State/Zipcode Phone Number [facility] DEPARTMENT OF PATHOLOGY AND [address] [place], [place] [address] GENOMIC MEDICINE [address] [address] CV Cardiac event monitor (03/21/2020) Narrative Performed At This result has an attachment that is no t available. Basic metabolic panel (03/20/2020 4:27 AM CDT)Only the most recent of2 results within the time period is included. Pathologist Sig nature Sodium 138 135 - 148 mEq/L [facility] Potassium 3.7 3.5 - 5.0 mEq/L [facility] Chloride 105 98 - 112 mEq/L [facility] CO2 21 (L) 24 - 31 mEq/L [facility] Anion gap 12@ANIO 7 - 15 mEq/L [facility] BUN 8 8 - 23 mg/dL [facility] Creatinine 0.65 (L) 0.70 - 1.20 mg/dL [facility] Glucose 114 (H) 65 - 99 mg/dL [facility] Calcium 8.4 (L) 8.8 - 10.2 mg/dL [facility] Specimen Blood Performing Organization Address City/State/Zipcode Phone Number [facility] DEPARTMENT OF PATHOLOGY AND [address] [place], [place] [address] GENOMIC MEDICINE [facility] [address] [place] [address] [place] < 1 Hour (03/19/2020 11:34 AM CDT)Only the most recent of2 resultswithin the time period is included. Specimen Narrative Performed At EXAMINATION: [place] < 1 HOUR [facility] LOCATION: [place] [address] ENDOSCOPY ROOM PROCEDURE: EGD WITH STENT REMOVAL SCHEDULED TIME:1100 START TIME:1045 END TIME: 1120 FLUORO TIME: 0.3 MINS. DOSE (mGy): 3.0 MGy # OF IMAGES: 6 TECH(S): MET IMPRESSION: Fluoroscopy was requested in the [facility] py Suite. Separate endoscopy report will be issued by the physic bharathi performing the procedure. Procedure Note Interface, Radiology Results Incoming - 03/19/2020 7:03 PM CDT EXAMINATION: FL < 1 HOUR LOCATION: [place] [address] ENDOSCOPY ROOM PROCEDURE: EGD WITH STENT REMOVAL SCHEDULED TIME:1100 START TIME:1045 END TIME: 1120 FLUORO TIME: 0.3 MINS. DOSE (mGy): 3.0 MGy # OF IMAGES: 6 TECH(S): MET IMPRESSION: Fluoroscopy was requested in the [facility] py Suite. Separate endoscopy report will be issued by the physician performing the procedure. Performing Organization Address City/State/Zipcode Phone Number [facility] [address] [place] [address] Airway (03/19/2020 11:00 AM CDT) Narrative Performed At Juan Manuel Harding MD 2019 11:01 AM Airway Date/Time: 03/19/2020 10:56 AM Performed by: Juan Maneul Harding MD Authorized by: Juan Manuel Harding MD Location: Endoscopy Urgency: Elective Difficult Airway: No Preoxygenated with 100% O2: Yes C-spine Precautions Maintained Throughou t: Yes Mask Ventilation: Not attempted Final Airway Type: Endotracheal airway Final Endotracheal Airway: ETT Cuffed: Yes Technique Used: Direct laryngoscopy Insertion Site: Oral Blade Type: Bautista Laryngoscope Blade/Videolaryngoscope Yunier siu Size: 2 ETT Size (mm): 8.0 Cuff at minimum occlusion pressure: Yes Measured from: Lips ETT to Lips (cm): 26 Placement Verified by: CO2 detection, di rect visualization and equal breath sounds Laryngoscopic view: Grade I - full vie w of glottis Modified RSI: Yes Number of Attempts at Approach: 1 Thyroid stimulating hormone (03/19/2020 3:54 AM CDT) Pathologist Sig nature TSH 0.98 0.27 - 4.20 uIU/mL [facility] Specimen Blood Performing Organization Address [facility] Phone Number [facility] DEPARTMENT OF PATHOLOGY AND [address] [place] [address] T4, free (03/19/2020 3:54 AM CDT) Pathologist [facility] T4, free 1.6 0.9 - 1.7 ng/dL [facility] Specimen Blood Performing Organization Address [facility] Phone Number [facility] DEPARTMENT OF PATHOLOGY AND [address] [place] [phone] Phosphorus level (03/19/2020 3:54 AM CDT)Only the most recent of3 resultswithin the time period is included. Pathologist Sig [facility] Phosphorus 2.8 2.4 - 4.5 mg/dL [facility] Specimen Blood Performing Organization Address [facility] Phone Number [facility] DEPARTMENT OF PATHOLOGY AND [address] [place] [phone] XR Abdomen 1 Vw (03/17/2020 10:58 PM CDT) Specimen Narrative Performed At Examination: XR ABDOMEN 1 VW HM [facility] Clinical History: dysphagia dislodg ed esopahgeal stent Comparison: None. Findings: Single frontal view of the abdomen is obtained. Bowel gas pattern is nonspecific but nonobstructive with scattered fecal ma terial in the colon. There is a distal esophageal stent noted in the region of the distal esophagus, GE junction with the distal aspect overlyin g the cardia or proximal body of the stomach. Clinical c orrelation is recommended. No free air is seen. IMPRESSION: 1. Nonspecific but nonobstructive bowel gas pattern. 2. Esophageal stent as described. Clinic al correlation is recommended. [facility]-[id number] Procedure Note Hm Interface, Radiology Results Incoming - 03/17/2020 11:06 PM CDT Examination: XR ABDOMEN 1 VW Clinical History: dysphagia dislodged esopahgeal stent Comparison: None. Findings: Single frontal view of the abdomen is ob tained. Bowel gas pattern is nonspecific but nonobstructive with scattered fecal material in the colon. There is a distal esophageal stent noted in the region of the distal esophagus, GE junction with the distal aspect overlying the cardia or proximal body of the stomach. Clinical correlation is recommended. No free air is seen. IMPRESSION: 1. Nonspecific but nonobstructive bowel gas pattern. 2. Esophageal stent as described. Clinic al correlation is recommended. [facility]-[id number] Performing Organization Address City/[facility]/Zipcode Phone Number [facility] [address] [place] [address] COVID-19 qualitative PCR (03/17/2020 10:40 PM CDT) Pathologist [facility] Interpretation Negative results do not prec lude 2019-nCoV infection and should not be used as the sole basis for treatment or other patient management decisions. Negative results must be combined with clinical observations, patient history, and epidemiological [facility] information. [facility] COVID-19 qualitative Not-Detected Not-Detecte [facility] PCR result d [facility] COVID-19 qualitative See link below for [facility] PCR PDF Lab [facility] ReportComment: Case HOSPITAL Number: [id number] Specimen Performing Organization Address City/[facility]/Zipcode Phone Number [facility] DEPARTMENT OF PATHOLOGY AND [address] [place], [place] [address] [address] [address] [facility] Partial thromboplastin time, activated (03/17/2020 9:30 PM CDT)Only the most recent of2 resultswithin the time period is included. Pathologist [facility] PTT 28.8 23.0 - 36.0 [facility] Comment: [facility] PTT therapeutic range for unfractionated heparin is 61.0-112.0 seconds which corresponds to Anti-Xa 0.3-0.7 U/ml. Specimen Blood Performing Organization Address City/State/Zipcode Phone Number [facility] DEPARTMENT OF PATHOLOGY AND [address] [place], [place] [address] [address] Prothrombin time with INR (03/17/2020 9:30 PM CDT)Only the most recent of2 resultswithin the time period is included. [facility] Prothrombin time 14.5 11.5 - 14.5 [facility] INR 1.1 [facility] Comment: [facility] International Normalized Ratio (INR) is a therapeu [facility] monitoring tool for patients who are stable on oral anticoagulant therapy. An INR of 2.0-3.0 is suggested for deep vein thrombosis/pulmonary embolism. Specimen Blood Performing Organization Address City/[facility]/Zipcode Phone Number [facility] DEPARTMENT OF PATHOLOGY AND [address] [place] [address] Chest W Contrast Abdomen W Contrast [...] metallic stent across t he GE junction. [id number] Procedure Note Hm Interface, Radiology Results Incoming [...] metallic stent across t he GE junction. [id number] Performing Organization Address City/State/Zipcode Phone Number [facility] [address] [place] [address] ECG 12 lead (01/27/2020) Narrative Performed At This result has an attachment that is no t available. Transthoracic Echocardiogram Complete, (w Contrast, Strain and 3D if needed) (01/12/2020 11:08 AM CDT) Specimen Narrative Performed At This result has an attachment that is no t available. [facility] Echocardiography R eport [address] [place] [address] Pat.Name: SAGRARIO CARPENTER.ID: [id number] .Date: 01/12/2020 Refer.MD: POLLO CARPIO MD Exam Time: 9:07:00 AM Study Type:Routine Echo Height: 73in Weight: 159lb BSA: 1.95 m2 Age: 9 1950,69Y Sex: MALE BP: 115/67 HR: 69 bpm Sonogrphr: MIAN Rosa Pat. Stat.:Outpatient Room: [facility] Study Status:Final Echo Event ID:[id number] Order ID: [id number] Reason for Study:chemotherapy Procedures: 2D Echo, Colorflow [...] of 5-10 mmHg. MEASUREMENTS: 2D Parasternal Long Blackwell Ao An 2.4 cm LV%fs 30 % [...] 2019 11:28 AM CDT Echocardiography Report [address] [place] [address] Pat.Name: SAGRARIO CARPENTER PatiSndyI D: [id number] .Date: 01/12/2020 Refer .MD: POLLO CARPIO MD Exam Time: 9:07:00 AM Study Type:Routine Echo Height: 73in Weigh t: 159lb BSA: 1.95 m2 Age: 9 1950,69Y Sex: MALE BP: 115/67 HR: 69 bpm Sonog rphr: Marcella Peterson [facility] Pat. Stat.:Outpatient Room: [facility] Study Status:Final Echo Event ID:[id number] Order ID: [id number] Reason for Study:chemotherapy Procedures: 2D Echo, Colorflow [...] of 5-10 mmHg. MEASUREMENTS: 2D Parasternal Long Blackwell Ao An 2.4 cm LV%f s 30 [...] AM David Napier M.D. Performing Organization Address City/State/Zipcode Phone Number [facility] [address] [place] [address] Folate level (01/10/2020 9:43 AM CDT) Pathologist Sig nature Folate 10.8 4.8 - 24.2 ng/mL [facility] Specimen Serum Performing Organization Address City/[facility] Phone Number [facility] DEPARTMENT OF PATHOLOGY AND [address] [place] [address] [phone] [address] Vitamin B12 level (01/10/2020 9:43 AM CDT) Vitamin B12 532 211 - 946 [facility] Comment: pg/mL HOSPITAL Significant overlap exists between normal and deficien cy states. However, most patients with deficiencies will have Ser um B12 <200 pg/mL. Specimen Serum Performing Organization Address City/[facility] Phone Number [facility] DEPARTMENT OF PATHOLOGY AND [address] [place] [address] [phone] [address] Total iron binding capacity (01/10/2020 9:42 AM CDT) Pathologist Sig critical [facility] Iron level 15 (L) 59 - 158 ug/dL [facility] Iron binding capacity 178 (L) 200 - 400 ug/dL [facility] % Saturation 8.4 (L) 20.0 - 40.0 % [facility] Specimen Blood Performing Organization Address [facility] Phone Number [facility] DEPARTMENT OF PATHOLOGY AND [address] [place] [address] [phone] [address] Ferritin level (01/10/2020 9:42 AM CDT) Pathologist Sig nature Ferritin level 228 30 - 400 ng/mL [facility] Specimen Blood Performing Organization Address City/[facility] Phone Number [facility] DEPARTMENT OF PATHOLOGY AND [address] [place] [address] [phone] [address] IR Port Placement (12/09/2019 11:36 AM CDT) [...] permanent image was store d. Port placed: [employer] SmartPort Catheter size (Hebrew): 6 Catheter flush: Heparin (100 units/mL) Closure [...] (mL): Less than 10 Standardized report: [email or web address] [facility]-[id number] Procedure Note Hm Interface, Radiology Results Incoming [...] a permanent image was stored. Port placed: [employer] SmartPort Catheter size (Hebrew): 6 Catheter flush: Heparin (100 units/mL) Closure [...] (mL): Less than 10 Standardized report: [email or web address] [id number] Performing Organization Address City/State/Zipcode Phone Number [facility] [address] [place] [address] XR Chest 2 Vw (12/07/2019 12:36 PM CDT) Specimen Narrative Performed At EXAMINATION: XR CHEST 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 2.No pulmonary infiltrates or nodules ar e seen. 3.Heart size within normal limits. Vesse ls are not congested. [facility]-[id number] Procedure Note Hm Interface, Radiology Results Incoming - 12/07/2019 12:41 PM CDT EXAMINATION: XR CHEST 2 VW CLINICAL HISTORY: C15.9 Malignant neopl asm of esophagus unspecified, esopahgeal cancer COMPARISON: None IMPRESSION: 1.Examination was performed with nipple markers. 2.No pulmonary infiltrates or nodules ar e seen. 3.Heart size within normal limits. Vesse ls are not congested. [id number] Performing Organization Address [facility] Phone Number [facility] [address] [place] [address] Cancer antigen 19-9 (12/07/2019 12:08 PM CDT) CA 19-9 1 0 - 35 U/mL [facility] Comment: HOSPITAL The Michael Sonido 8000 CA19-9 immunoassay was used. Results obtained with different assay methods or kits should not be used interchangeably and may be differen t. Specimen Blood Performing Organization Address [facility] Phone Number [facility] DEPARTMENT OF PATHOLOGY AND [address] [place] [address] [place] [address] Carcinoembryonic antigen (CEA) (12/07/2019 12:08 PM CDT) CEA 3.3 0.0 - 3.8 [facility] Comment: ng/mL HOSPITAL Reference range for heavy smokers: 0.0 - 5.5 ng/mL The MICHAEL Sonido 8000 CEA immunoassay was used. Results obtained with different assay methods or kits should not be used interchangeably and may be differen t. Specimen Serum Performing Organization Address [facility] Phone Number [facility] DEPARTMENT OF PATHOLOGY AND [address] [place] [address] [phone] [address] [address] Abd/Pelvic External Study (11/17/2019 8:38 AM MOLDER MEAT) Specimen Narrative Performed At This exam was not acquired at a [facility] t facility and has not been [facility] interpreted by a Orthodox Provider. T he exam was imported into our imaging system. Performing Organization Address [facility]/Zipcode Phone Number [facility] [address] [place] [address] XR Chest External Study (11/17/2019 8:11 AM MOLDER MEAT) Specimen Narrative Performed At This exam was not acquired at a Methodis t facility and has not been [facility] interpreted by a Orthodox Provider. T he exam was imported into our imaging system. Performing Organization Address City/State/Zipcode Phone Number [facility] [address] [place] [address] after 04/14/2019 Advance Directives For more information, please contact: [phone] Type Date Recorded Patient Education Intern Explanati on Advance Directives, Living Will 02/22/2020 7:14 AM and Medical Power of Travel Pta
--- OUTSIDE RECORDS SUMMARY | 2020-04-14 03:36 | XMS REPORT | Continuity of Care Document ---
:1950 Author Organization [facility] t Address [address] [place] [address] Care Team Providers Name Role Phone Carlos Arredondo MD Primary Care Physician [facility] Attending Clinician Unavailable Cathie SMALLS Attending Clinician Unavailable Joaquin Carpio MD Attending Clinician Jesika SMALLS Attending Clinician Unavailable Iraida SMALLS, Tirso Attending Clinician Unavailable Bernadette [facility] Attending Clinician Unavailable Raul Gimenez [facility] Attending Clinician Unavailable Joshua ROY Attending Clinician Unavailable Elizabeth Ortega MD Attending Clinician Antonio Bui MD Attending Clinician Maycol Felton MD Attending Clinician Jacinto Harding MD Attending Clinician Ben Norman RN Attending Clinician Unavailable Johnie [facility] Attending Clinician Unavailable Danielle [facility] Attending Clinician Unavailable Sofya ZABALA Attending Clinician Iza WETZEL Attending Clinician aMria Isabel Smith NP Attending Clinician Gregory RN, M Attending Clinician Unavailable Pamela ROY Attending Clinician Unavailable Ruth Foster RD Attending Clinician Unavailable OBEY TSAI Attending Clinician Unavailable Obey Tsai MD Attending Clinician Nat Laurent MD Attending Clinician Kelly De La Cruz MD Attending Clinician Natan PICHARDO [place] Attending Clinician Liliana ZABALA Attending Clinician Jarad RN Attending Clinician Unavailable Argenis ZABALA, Antonio Attending Clinician Jena Nix MD Attending Clinician Thomas MURCIA Attending Clinician Unavailable Tarik SMALLS Attending Clinician Unavailable Provider Attending Clinician Unavailable Sun Francis MD Attending Clinician SHAILA Admitting Clinician Unavailable ARGENIS Admitting Clinician Unavailable OBEY TSAI Admitting Clinician Unavailable Payers Payer Name Policy Policy Number Effective Expiration Source Type Date Date [employer] xxxxxxxxxxxx 2017 [facility]/HMO BLUE 00:00:00 Confucianism ESSENTIALSxxxxxxxxxxx x2016-PresentO BLUE CROSS/BLUE xxxxxxxxxxxx Formerly [facility] HMO - Medical BLUE/ESSENTIALSxxxxxx [facility] xxxxxxHMO/[id number], [place] [address] Problems Condition Condition Condition Status Onset Resolution Last Treating Co mments Source Name Details Category Date Date Treatment Clinician Date Dysphagia Dysphagia Disease Active 2019-0 Alayna ston 7-04 Methodi 00:00: st 00 Esophageal Esophageal Disease Active 2020-0 Overview : [place] dysphagia dysphagia 704 Added Meth puneet 00:00: automatic st ally from request for surgery [id number] Hypotensio Hypotensio Disease Active 2020-0 [place] due to n due to 01-09 Method i drugs drugs 00:00: st 00 Hematemesi Hematemesi Disease Active 2020-[address] [facility] Dehydratio Dehydratio Disease Active 2020-0 [place] n 4 Methodi 00:00: st 00 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 00:00: st 00 Liver Liver Disease Active 2019-0 [place] metastases metastases 3-25 Me thodi 00:00: st 00 History of Past Illness Condition Condition Condition Status Onset Resolution Last Treating Co mments Source Name Details Category Date Date Treatment Clinician Date Gastrointe Gastrointe Disease Resolve 2020-02-08 2020-02-08 [place] stinal stinal d 4-24 00:00:00 13:54:07 Method i hemorrhage hemorrhage 00:00: st associated associated 00 with with gastric gastric ulcer ulcer Esophageal Esophageal Disease Resolve 2020-02-08 2020-02-08 [place] dysphagia dysphagia d 3-25 00:00:00 13:54:05 Methodi 00:00: st 00 Allergies, Adverse Reactions, Alerts Allergy Allergy Status Severity Reaction(s) Onset Inactive Treating Comm ents Source Name Type Date Date Clinician Sulfur Propensi Active Other (See Flu like [facility] ty to Comments) 4-14 symptoms [facility] - adverse 00:00: Medical reaction 00 Center s Sulfa Propensi Active Other (See Flu like [place] (Sulfona ty to Comments) 3-25 symptoms Met hodi mide adverse 00:00: st Antibiot reaction 00 ics) s to drug Family History Family Member Diagnosis Comments Start Date Stop Date Source Natural father Heart attack [place] Confucianism Natural mother Breast cancer [place] Confucianism Social History Social Habit Start Date Stop Date Quantity Comments Source History of tobacco Current smoker Jarrod kent Confucianism use History [facility] Meth odist Alcohol Std Drinks History [facility] Meth odist Alcohol Binge Sex Assigned At [facility] ethodist Exposure to Yes David Metho dist SARS-CoV-2 (event) Cigarettes smoked 2020-03-20 2020-03-20 [place] Confucianism current (pack per 00:00:00 00:00:00 day) - Reported Alcohol intake 2020-03-20 2020-03-20 Lifetime [place] Me thodist 00:00:00 00:00:00 non-drinker (finding) Tobacco Comment 2019-12-15 2019-12-[address] [facility]00 00:00:00 [facility] Alcohol Comment 2019-12-15 2019-12-[address] [facility] - 00:[facility]00 00:00:00 [facility] [place] History SDOH 2019-12-07 2019-12-07 1 [place] Meth odist Alcohol Frequency 00:00:00 00:00:00 Smoking Status Start Date Stop Date Source Former smoker 2020-03-20 00:00:00 2020-03-20 00:00:00 Frankie Trentist Current every day 2019-12-29 00:00:[address] [facility] Medications Ordered Filled Start Stop Current Ordering Indication Dosage Frequency Signature Comments Components Source Medication Medication Date Date Medication? Clinician (SIG) Name Name HYDROcodone 2019-0 2020- Yes chronic chronic David -acetaminop 7-27 08-27 pain pain. 1 Meth puneet hen ([employer]) 00:00: 23:[address] 10-325 mg 00 :00 prn per tablet moderate pain HYDROcodone 2019-0 2020- No chronic 1{tbl} Q4H Take 1 David -acetaminop 7-27 07-27 pain tablet by Sd thodi hen ([employer]) 00:00: 00:[address] 10-325 mg 00 :00 every 4 per tablet (four) hours as needed for moderate pain for up to 100 doses .chronic pain. Code: C16.0 Max Daily Amount: 6 tablets HYDROcodone 2020-0 2020- No chronic 1{tbl} Q4H Take 1 David -acetaminop 7-27 07-27 pain tablet by Sd thodi hen ([employer]) 00:00: 00:[address] 10-325 mg 00 :00 every 4 per tablet (four) hours as needed for moderate pain for up to 100 doses .chronic pain. Code: C16.0 Max Daily Amount: 6 tablets HYDROcodone 2020-0 2020- No chronic chronic David -acetaminop 7-27 07-27 pain pain. Method i hen ([employer]) 00:00: 00:00 Code: st 10-325 mg 00 :00 C16.01 tab per tablet po q4h prn moderate pain aspirin 2020-0 Yes 81mg QD Take 81 mg [place] (ECOTRIN) -07 by mouth Method i 81 MG 12:03: daily. st enteric 56 coated tablet ondansetron 2020-0 Yes 8mg Q.5D Take 8 mg [place] ODT 7-07 by mouth 2 Methodi (ZOFRAN-ODT 12:03: (two) st ) 8 MG 56 times a disintegrat day. ing tablet pantoprazol 2020-0 Yes 40mg Q.5D Take [address] [facility] 4-17 tablet (40 [facility] - (PROTONIX) 00:00: mg total) Me dical 40 MG 00 by mouth 2 Center tablet (two) times daily. pantoprazol 2019-0 Yes 40mg Q.5D Take 40 mg David e 4-17 by mouth 2 Methodi (PROTONIX) 00:00: (two) st 40 MG EC 00 times a tablet day. traMADoL 2019-0 Yes 50mg Take 50 mg Alayna ston (ULTRAM) 50 08 by mouth. Met hodi mg tablet 00:00: st 00 dronabinoL 2019-2019- No 2.5mg Q.5D Take 1 Alayna ston (Marinol) 12-20-18 capsule Method i 2.5 MG 00:00: 23:59 (2.[address] capsule 00 :00 total) by mouth 2 (two) times a day before meals for 10 days. aspirin 81 2019-0 Yes 81mg QD Take [address] MG EC 407 by mouth [facility] - tablet 09:41: daily. Medical 49 Center combination 2019-[address] formulary 12-14 [facility] - medication 10:44: Medical 43 Center lisinopriL 2019-0 Yes 5mg QD Take [address] (PRINIVIL,Z 02 by mouth Luke s - ESTRIL) 5 10:04: daily. Medica l MG tablet 59 Center ondansetron 0 Yes 8mg Take [address] (ZOFRAN-ODT 12-14 by mouth 2 Isela kes - ) 8 MG 10:04: (two) Medical disintegrat 59 times Center ing tablet daily as needed for Nausea. prochlorper 2019-2019- No GE junction 5mg Q6H Take 1 [place] azine 3-26 04-25 carcinoma tablet (5 Met hodi (Compazine) 00:00: 23:59 (HCC) mg total) st 5 MG tablet 00 :00 by mouth every 6 (six) hours as needed for nausea or vomiting for up to 30 days. ondansetron 2019- No GE junction 8mg Q8H Take 1 [place] ODT (Zofran 3-26 04-25 carcinoma tablet (8 Methodi ODT) 8 MG 00:00: 23:59 (HCC) mg total) s t disintegrat 00 :00 by mouth ing tablet every 8 (eight) hours as needed for nausea or vomiting for up to 30 days. lisinopriL 2019- No [place] (PRINIVIL) 1- 05 Methodi 5 mg tablet 00:00: 00:00 st 00 :00 Vital Signs Vital Name Observation Time Observation Value Comments Source Systolic blood 2020-04-05 14:09:00 99 mm[Hg] [place] [facility] pressure Diastolic blood 2020-04-05 14:09:00 59 mm[Hg] [place] Confucianism pressure Heart rate 2020-04-05 14:09:00 73 /min [place] Confucianism Body temperature 2020-04-05 14:09:00 35.78 Jessie [place] [facility] Respiratory rate 2020-04-05 14:09:00 17 /min [place] [facility] Body height 2020-04-05 14:09:00 185.4 cm [place] [facility]ianism Body weight 2020-04-05 14:09:00 66.769 kg [place] [facility]ianism BMI 2020-04-05 14:09:00 19.42 kg/m2 [place] Confucianism Oxygen saturation in 2020-04-05 14:09:00 98 /min [facility] Arterial blood by Pulse oximetry Systolic blood 2019-12-30 07:50:00 110 mm[Hg] [facility] Diastolic blood 2019-12-30 07:50:00 77 mm[Hg] [facility] Heart rate 2019-12-30 07:50:00 86 /min [facility] Body temperature 2019-12-30 07:50:00 36.94 Jessie [facility] Respiratory rate 2019-12-30 07:50:00 18 /min [facility] Oxygen saturation in 2019-12-30 07:50:00 95 /min [facility] Arterial blood by Medical Ce nter Pulse oximetry Body weight Measured 2019-12-30 06:00:00 72.757 kg [facility] BMI 2019-12-30 06:00:00 21.16 kg/m2 [facility] Body height 2019-12-27 01:30:00 185.4 cm [facility] Procedures Procedure Date / Time Performing Source Performed Clinician COMPREHENSIVE METABOLIC PANEL 2020-04-03 Michelle Carpio [place] 09:34:00 Confucianism HC COMPLETE BLD COUNT W/AUTO DIFF 2020-04-03 Michelle Carpio Ed [place] 09:34:00 Confucianism MAGNESIUM LEVEL 2020-04-03 Michelle Carpio [place] 09:34:00 Confucianism ESTIMATED GFR 2020-04-03 Michelle Carpio [place] 09:34:00 Confucianism SMEAR REVIEW 2020-04-03 Michelle Carpio [place] 09:34:00 Confucianism HC COMPLETE BLD COUNT W/AUTO DIFF 2020-03-26 Michelle Carpio Ed [facility] 09:40:00 Confucianism COMPREHENSIVE METABOLIC PANEL 2020-03-26 Michelle Carpio [place] 09:40:00 Confucianism MAGNESIUM LEVEL 2020-03-26 [facility] 09:40:00 Confucianism ESTIMATED GFR 2020-03-26 [facility] 09:40:00 Confucianism SMEAR REVIEW 2020-03-26 Michelle Carpio [place] 09:40:00 Confucianism CV CARDIAC EVENT MONITOR 2020-03-21 [facility] 00:00:00 [place] Confucianism BASIC METABOLIC PANEL 2020-03-20 Raleigh Ortega [place] 04:27:00 Confucianism HC COMPLETE BLD COUNT W/AUTO DIFF 2020-03-20 Raleigh Ortega [facility] 04:27:00 Confucianism ESTIMATED GFR 2020-03-20 Raleigh Ortega [facility] 04:27:00 Confucianism [place] < 1 HOUR 2020-03-19 Julia Felton [facility] 11:34:50 Confucianism [place] AN ELECTIVE ENDOTRACHEAL AIRWAY 2020-03-19 [facility] 11:00:40 Juan Manuel Casey Confucianism ESOPHAGOGASTRODUODENOSCOPY (EGD) 2020-03-19 Julia Felton [facility] 10:30:00 Confucianism HC COMPLETE BLD COUNT W/AUTO DIFF 2020-03-19 Raleigh Ortega [facility] 03:54:00 Confucianism BASIC METABOLIC PANEL 2020-03-19 Raleigh Ortega David 03:54:00 Confucianism MAGNESIUM LEVEL 2020-03-19 Raleigh Ortega David 03:54:00 Confucianism PHOSPHORUS LEVEL 2020-03-19 Raleigh Ortega [place] 03:54:00 Confucianism T4, FREE 2020-03-19 Raleigh Ortega David 03:54:00 Confucianism THYROID STIMULATING HORMONE 2020-03-19 Raleigh Ortega [facility] 03:54:00 Confucianism ESTIMATED GFR 2020-03-19 Raleigh Ortega David 03:54:00 Confucianism HC COMPLETE BLD COUNT W/AUTO DIFF 2020-03-18 Andreas Bui [facility] 04:30:00 Confucianism COMPREHENSIVE METABOLIC PANEL 2020-03-18 Bui [facility] 04:30:00 Confucianism MAGNESIUM LEVEL 2020-03-18 Bui, [facility] 04:30:00 Confucianism PHOSPHORUS LEVEL 2020-03-18 Bui, [facility] 04:30:00 Confucianism ESTIMATED GFR 2020-03-18 Bui, [facility] 04:30:00 Confucianism XR ABDOMEN 1 VW 2020-03-[facility] 22:58:06 Confucianism COVID-19 QUALITATIVE PCR 2020-03-17 [facility] 22:40:00 Confucianism HC COMPLETE BLD COUNT W/AUTO DIFF 2020-03-17 Andreas Bui [facility] 21:30:00 Confucianism PROTHROMBIN TIME WITH INR 2020-03-17 Hao [facility] on 21:30:00 Confucianism PARTIAL THROMBOPLASTIN TIME (PTT) 2020-03-17 Andreas Bui [facility] 21:30:00 Confucianism COMPREHENSIVE METABOLIC PANEL 2020-03-17 Hao [facility] 21:30:00 Confucianism MAGNESIUM LEVEL 2020-03-17 [facility] 21:30:00 Confucianism PHOSPHORUS LEVEL 2020-03-17 Bui, [facility] 21:30:00 Confucianism ESTIMATED GFR 2020-03-17 Bui [facility] 21:30:00 Confucianism COMPREHENSIVE METABOLIC PANEL 2020-03-12 Michelle Carpio [place] 10:04:00 Confucianism HC COMPLETE BLD COUNT W/AUTO DIFF 2020-03-12 Michelle Carpio Ed [place] 10:04:00 Confucianism MAGNESIUM LEVEL 2020-03-12 Michelle Carpio [place] 10:04:00 Confucianism ESTIMATED GFR 2020-03-12 Michelle Carpio [place] 10:04:00 Confucianism COMPREHENSIVE METABOLIC PANEL 2020-02-27 Michelle Carpio [place] 09:15:00 Confucianism HC COMPLETE BLD COUNT W/AUTO DIFF 2020-02-27 Michelle Carpio [facility] 09:15:00 Confucianism MAGNESIUM LEVEL 2020-02-27 Michelle Carpio [facility] 09:15:00 Confucianism ESTIMATED GFR 2020-02-27 Michelle Carpio [facility] 09:15:00 Confucianism [place] < 1 HOUR 2020-02-22 Julia FeltonSindy [facility] 08:47:00 Confucianism ESOPHAGOGASTRODUODENOSCOPY (EGD) 2020-02-22 Felton, Julia Severino [facility] 07:52:[address] CHEST W CONTRAST ABDOMEN W 2020-02-08 [facility] CONTRAST PELVIS W CONTRAST 10:33:55 Metho dist COMPREHENSIVE METABOLIC PANEL 2020-02-08 Michelle Carpio [facility] 09:59:00 Confucianism HC COMPLETE BLD COUNT W/AUTO DIFF 2020-02-08 Michelle Carpio [facility] 09:59:00 Confucianism MAGNESIUM LEVEL 2020-02-08 Michelle Carpio [facility] 09:59:00 Confucianism ESTIMATED GFR 2020-02-08 Michelle cook [facility] 09:59:00 Confucianism ECG 12-LEAD 2020-01-27 [facility] 00:00:00 [place] Confucianism COMPREHENSIVE METABOLIC PANEL 2020-01-25 Michelle cook [facility] 09:23:00 Confucianism HC COMPLETE BLD COUNT W/AUTO DIFF 2020-01-25 Michelle cook [facility] 09:23:00 Confucianism MAGNESIUM LEVEL 2020-01-25 Michelle cook [facility] 09:23:00 Confucianism ESTIMATED GFR 2020-01-25 Michelle Carpio [facility] 09:23:00 Confucianism TTE COMPLETE, WO CONTRAST, W 2020-01-12 Michelle cook [facility] DOPPLER ([id number]) 11:08:48 Confucianism VITAMIN B12 LEVEL 2020-01-10 Michelle Carpio [facility] 09:43:00 Confucianism FOLATE LEVEL 2020-01-10 Michelle Carpio [facility] 09:43:00 Confucianism COMPREHENSIVE METABOLIC PANEL 2020-01-10 Michelle cook [facility] 09:42:00 Confucianism HC COMPLETE BLD COUNT W/AUTO DIFF 2020-01-10 Michelle Carpio Ed [place] 09:42:00 Confucianism MAGNESIUM LEVEL 2020-01-10 Michelle Carpio David 09:42:00 Confucianism FERRITIN LEVEL 2020-01-10 Michelle Carpio 09:42:00 Confucianism TOTAL IRON BINDING CAPACITY 2020-01-10 Michelle Carpio 09:42:00 Confucianism ESTIMATED GFR 2020-01-10 Michelle Carpio 09:42:00 Confucianism REPORT OF PROCEDURE - ENDOSCOPY 2020-01-02 Provider, Lexi barnett [facility] - SCAN 15:40:38 [facility] RHYTHM STRIP - SCAN 2020-01-02 Provider, Lionel [facility]IVERA [facility] - 15:40:28 [facility] TRANSFUSION SERVICE REPORT - SCAN 2019-12-30 Provider, Lexie lyons [facility] - 18:01:21 [facility] CBC W/PLT COUNT & AUTO 2019-12-30 Gabbie De La Cruz [facility] - DIFFERENTIAL 03:54:00 [facility] TRANSFUSION SERVICE REPORT - SCAN 2019-12-29 Provider, Lexie lyons [facility] - 17:50:55 [facility] CBC (HEMOGRAM ONLY) 2019-12-[address] [facility] - 12:37:00 [facility] CBC (HEMOGRAM ONLY) 2019-12-[address] [facility] - 05:43:00 [facility] BASIC METABOLIC PANEL (7) 2019-12-29 [facility] - 05:42:00 [facility] CBC (HEMOGRAM ONLY) 2019-12-[address] [facility] - 00:07:00 [facility] PREPARE LEUKO-REDUCED RBC 2019-12-28 [facility]ton Pack [facility] - 23:54:00 [facility] CBC (HEMOGRAM ONLY) 2019-12-[address] [facility] - 18:01:00 [facility] TRANSFUSION SERVICE REPORT - SCAN 2019-12-[address] [facility] - 17:51:06 [facility] CBC (HEMOGRAM ONLY) 2019-12-[address] [facility] - 12:42:00 [facility] POCT-GLUCOSE METER 2019-12-28 Mehran, [facility] - 05:30:00 [facility] CBC (HEMOGRAM ONLY) 2019-12-[address] [facility] - 04:25:00 [facility] BASIC METABOLIC PANEL (7) 2019-12-28 Alton Pack [facility] - 04:25:00 [facility] CBC (HEMOGRAM ONLY) 2019-12-27 Alondra, [facility] - 23:33:00 [facility] POCT-GLUCOSE METER 2019-12-27 Mehran, [facility] - 23:32:00 [facility] POCT-GLUCOSE METER 2019-12-27 Mehran, [facility] - 18:14:00 [facility] POCT-GLUCOSE METER 2019-12-27 Obey Tsai, [facility] - 15:34:00 [facility] CBC (HEMOGRAM ONLY) 2019-12-[address] [facility] - 15:25:00 [facility] REPORT OF PROCEDURE - ENDOSCOPY 2019-12-[address] [facility] - URL 12:49:16 [facility] UPPER ENDOSCOPY 2019-12-[address] [facility] - 11:00:00 [facility] CBC (HEMOGRAM ONLY) 2019-12-27 Ramone, Alton Prasad [facility] - 08:25:00 [facility] TRANSFUSE LEUKO-REDUCED RED BLOOD 2019-12-27 Ramone, Alton W [facility] - CELLS 07:19:43 [facility] HEMOGLOBIN A1C 2019-12-27 Ramone, Alton W [facility] - 04:55:00 [facility] BLOOD CULTURE 2019-12-27 Ramone, Alton W [facility] - 04:54:00 [facility] ABORH, MANUAL 2019-12-[address] [facility] - 03:11:00 [facility] BLOOD CULTURE 2019-12-27 Ramone, Alton W [facility] - 02:53:00 [facility] TYPE AND SCREEN, AUTOMATED 2019-12-27 Ramone, Alton W [facility] - 02:52:00 [facility] COMPREHENSIVE METABOLIC PANEL 2019-12-27 Ramone, [facility]ton W [facility] - 02:40:00 [facility] MAGNESIUM 2019-12-27 Ramone, Alton Prasad [facility] - 02:40:00 [facility] LACTIC ACID, VENOUS 2019-12-27 Ramone, Alton Prasad [facility] - 02:40:00 [facility] PROTHROMBIN TIME/INR 2019-12-27 Ramone, Alton Prasad [facility] - 02:40:00 [facility] CBC W/PLT COUNT & AUTO 2019-12-27 Ramone, Alton Prasad [facility] - DIFFERENTIAL 02:40:00 [facility] XR CHEST 1 VIEW PORTABLE/BEDSIDE 2019-12-27 Ramone, Alton Prasad [facility] - 02:28:00 [facility] REPORT OF PROCEDURE - ENDOSCOPY 2019-12-20 Julia Felton Min h [facility] - URL 11:35:29 [facility] [place] FLUORO NON-SPECIFIC UP TO 1 2019-12-[address] [facility] - HOUR 11:30:00 [facility] UPPER ENDOSCOPY,WALL STENT 2019-12-[address] [facility] - 11:00:00 [facility] PROCEDURE W/ C-ARM 2019-12-20 Felton, Julia Torresh [facility] - 11:00:00 [facility] COMPREHENSIVE METABOLIC PANEL 2019-12-13 Michelle Carpio [facility] 09:25:00 Confucianism HC COMPLETE BLD COUNT W/AUTO DIFF 2019-12-13 Michelle Carpio Ed [place] 09:25:00 Confucianism MAGNESIUM LEVEL 2019-12-13 Michelle Carpio [place] 09:25:00 Confucianism ESTIMATED GFR 2019-12-13 Michelle Carpio [place] 09:25:00 Confucianism IR PORT PLACEMENT 2019-12-09 Michelle Carpio [place] 11:36:04 Confucianism XR CHEST 2 VW 2019-12-07 Michelle Carpio [place] 12:36:44 Confucianism HC COMPLETE BLD COUNT W/AUTO DIFF 2019-12-07 Michelle Carpio Ed [place] 12:08:00 Confucianism COMPREHENSIVE METABOLIC PANEL 2019-12-07 Michelle Carpio [place] 12:08:00 Confucianism CARCINOEMBRYONIC ANTIGEN (CEA) 2019-12-07 Michelle Carpio [facility] 12:08:00 Confucianism CANCER ANTIGEN 19-9 2019-12-07 Michelle Carpio 12:08:00 Confucianism PROTHROMBIN TIME WITH INR 2019-12-07 Michelle Carpio ston 12:08:00 Confucianism PARTIAL THROMBOPLASTIN TIME (PTT) 2019-12-07 Michelle Carpio Ed 12:08:00 Confucianism ESTIMATED GFR 2019-12-07 Michelle Carpio 12:08:[address] ABD/PELVIC EXTERNAL STUDY 2019-11-17 Michelle Carpio David 08:38:00 Confucianism XR CHEST EXTERNAL STUDY 2019-11-17 Michelle Carpio on 08:11:00 Confucianism Plan of Care Planned Activity Planned Date Details Comments Source Future Scheduled 2020-04-14 INFLUENZA VACCINE [place] [facility] Test 00:00:00 [code = INFLUENZA VACCINE] Future Scheduled 2013 65+ PNEUMOCOCCAL [place] Confucianism Test 00:00:00 VACCINE (1 of 2 - PCV13) [code = 65+ PNEUMOCOCCAL VACCINE (1 of 2 - PCV13)] Future Scheduled 1998 COLONOSCOPY SCREENING [place] Confucianism Test 00:00:00 [code = COLONOSCOPY SCREENING] Future Scheduled 1998 SHINGLES VACCINES (#1) [place] Confucianism Test 00:00:00 [code = SHINGLES VACCINES (#1)] Encounters Start End Encounter Admission Attending Care Care Encounter Source Date/Time Date/Time Type Type Clinicians Facility Department ID 2020-04-05 2020-04-05 Outpatient MICHELLE CARPIO [facility] [id number] [place] 00:00:00 00:00:[address] 2020-04-03 2020-04-03 Outpatient MICHELLE CARPIO [facility] [id number] [place] 00:00:00 00:00:[address] 2020-03-26 2020-03-26 Outpatient MICHELLE CARPIO [facility] [id number] [place] 00:00:00 00:00:[address] 2020-03-17 2020-03-20 Inpatient RALEIGH ORTEGA [facility] [id number] [place] 00:00:00 00:00:[address] 2020-03-14 2020-03-14 Outpatient FIDESONYMICHELLE [facility] [id number] [place] 00:00:00 00:00:[address] 2020-03-14 2020-03-14 Outpatient MICHELLE CARPIO [facility] [id number] [place] 00:00:00 00:00:[address] 2020-03-12 2020-03-12 Outpatient MICHELLE CARPIO [facility] [id number] [place] 00:00:00 00:00:[address] 2020-02-29 2020-02-29 Outpatient MICHELLE CARPIO [facility] [id number] [place] 00:00:00 00:00:[address] 2020-02-27 2020-02-27 Outpatient MICHELLE CARPIO [facility] [id number] [place] 00:00:00 00:00:[address] 2020-02-22 2020-02-22 Outpatient ARGENIS [facility] [id number] [place] 00:00:00 00:00:00 BREWER [address] 2020-02-10 2020-02-10 Outpatient MICHELLE CARPIO [facility] [id number] [place] 00:00:00 00:00:[address] 2020-02-08 2020-02-08 Outpatient MICHELLE CARPIO [facility] [id number] [place] 00:00:00 00:00:[address] 2020-02-08 2020-02-08 Outpatient MICHELLE CARPIO [facility] [id number] [place] 00:00:00 00:00:[address] 2020-02-08 2020-02-08 Outpatient MICHELLE CARPIO [facility] [id number] [place] 00:00:00 00:00:[address] 2020-01-27 2020-01-27 Outpatient MICHELLE CARPIO [facility] [id number] [place] 00:00:00 00:00:[address] 2020-01-27 2020-01-27 Outpatient [facility] [id number] [place] 00:00:00 00:00:[address] 2020-01-25 2020-01-25 Outpatient MICHELLE CARPIO [facility] [id number] [place] 00:00:00 00:00:[address] 2020-01-12 2020-01-12 Outpatient MICHELLE CARPIO [facility] [id number] [place] 00:00:00 00:00:[address] 2020-01-12 2020-01-12 Outpatient MICHELLE CARPIO [facility] [id number] [place] 00:00:00 00:00:[address] 2020-01-10 2020-01-10 Outpatient MICHELLE CARPIO [facility] [id number] [place] 00:00:00 00:00:[address] 2020-01-10 2020-01-10 Outpatient MICHELLE CARPIO [facility] [id number] [place] 00:00:00 00:00:[address] 2020-01-06 2020-01-06 Outpatient MICHELLE CARPIO [facility] [id number] [place] 00:00:00 00:00:[address] 2019-12-15 2019-12-15 Outpatient MICHELLE CARPIO [facility] [id number] [place] 00:00:00 00:00:[address] 2019-12-13 2019-12-13 Outpatient MICHELLE CARPIO [facility] [id number] [place] 00:00:00 00:00:[address] 2019-12-09 2019-12-09 Outpatient MICHELLE CARPIO [facility] [id number] [place] 00:00:00 00:00:[address] 2019-12-07 2019-12-07 Outpatient MICHELLE CARPIO [facility] [id number] [place] 00:00:00 00:00:[address] 2019-12-07 2019-12-07 Outpatient MICHELLE CARPIO [facility] [id number] [place] 00:00:00 00:00:[address] 2019-12-07 2019-12-07 Outpatient MICHELLE CARPIO [facility] [id number] [place] 00:00:00 00:00:[address] 2019-12-07 2019-12-07 Outpatient MICHELLE CARPIO [facility] [id number] [place] 00:00:00 00:00:[address] 2019-12-07 2019-12-07 Outpatient MICHELLE CARPIO [facility] [id number] [place] 00:00:00 00:00:[address] 2019-12-01 2019-12-01 Outpatient GIANCARLO [facility] [id number] [place] 00:00:00 00:00:00 ELVIA [address] Results Test Description Test Time Test Comments Results Result Comments Source Smear review 2020-04-03 10:44:10 Test Item Value Reference Range Interpretation Comme nts Platelet slide review (test code = 45782-4) Decreased A Anisocytosis (test code = 702-1) Moderate Ovalocytes (test code = 774-0) Moderate Lab Interpretation (test code = 43713-1) Abnormal [facility]Comprehensive metabolic jlrkv6190-81-65 10:41:04 Test Item Value Reference Range Interpretation Comments Sodium (test code = 137 135- 148 mEq/L 2951-2) Potassium (test code = 4.3 3.5- 5.0 mEq/L 2823-3) Chloride (test code = 105 98- 112 mEq/L 2075-0) CO2 (test code = 2027-9) 20 24- 31 mEq/L L Anion gap (test code = 12@ANIO 7- 15 mEq/L 58607-2) BUN (test code = 3094-0) 15 mg/dL 8-23 Creatinine (test code = 0.69 mg/dL 0.7-1.2 L 2160-0) Glucose (test code = 81 mg/dL 65-99 2345-7) Calcium (test code = 8.2 mg/dL 8.8-10.2 L 48607-6) Protein (test code = 5.7 g/dL 6.3-8.3 L -[place] n 2885-2) 4.6-7.0 g/dL1 week 4.4-7 .6 g/dL7 months-1y ear 5.1-7 .3 g/dL1-2 years 5.6-7 .5 g/dL>3 years 6.0-8 .0 g/gI65-845 6.3-8 .3 g/dL Albumin (test code = 2.4 g/dL 3.5-5 L 1751-7) A/G ratio (test code = 0.7 0.7-3.8 1759-0) Alkaline phosphatase 114 U/L 40-129 (test code = 6768-6) AST (test code = 1920-8) 31 U/L 10-50 ALT (test code = 1742-6) 20 U/L 5-50 Total bilirubin (test 0.3 mg/dL 0-1.2 code = 1975-2) Lab Interpretation (test Abnormal code = 66727-6) Frankie MethodistMagnesium [id number] 10:40:59 Test Item Value Reference Range Interpretation Comments Magnesium (test code = 44804-4) 1.9 mg/dL 1.6-2.4 Frankie MethodistEstimated [id number] 10:40:58 Test Item Value Reference Range Interpretation Comments Estimated GFR (test >=90 mL/min/1.73 m2 Catfang chapman Units code = 5488) InterpretationG 1 >=90 Normal or highG2 60-89 Mildly dhftawsisY4u 45-59 Mildly to mode rately rdwljoqzxC8v 30-44 Moderately to severely decreasedG4 15-29 Severely decre asedG5 <15 Kidn ey failureThe eGFR was calculated sanam hardin the Chronic Kidney Disease Epidemiology Co llaboration (CKD-EPI) equat ion. Interpretation is based on recommendations of the National Kidney Foundation-Kidn ey Disease Outcomes Qualit y Initiative (NKF-KDOQI) pub lished in 2014. Frankie MethodistCBC with platelet and ucqnifeuugsf9123-96-03 10:07:35 Test Item Value Reference Range Interpretation Comments WBC (test code = 60643-0) 3.39 4.50- 11.00 k/uL L RBC (test code = 19690-9) 3.54 m/uL 4.4-6 L HGB (test code = 718-7) 10.5 g/dL 14-18 L HCT (test code = 4544-3) 33.6 % 41-51 L MCV (test code = 787-2) 94.9 fL 82-100 MCH (test code = 785-6) 29.7 pg 27-34 MCHC (test code = 786-4) 31.3 g/dL 31-37 RDW - SD (test code = 75.0 fL 37-55 H 15418-3) MPV (test code = 10576-0) 12.2 fL 8.8-13.2 Platelet count (test code 79 150- 400 k/uL L = 98322-3) Nucleated RBC (test code 0.00 /100 WBC = 70051-2) Neutrophils (test code = 48.1 % 39-69 26941-5) Lymphocytes (test code = 27.7 % 25-45 70431-6) Monocytes (test code = 23.3 % 0-10 H 52853-5) Eosinophils (test code = 0.3 % 0-5 66392-0) Basophils (test code = 0.3 % 0-1 73865-6) Immature granulocytes 0.3 % 0-1 "Immat ure (test code = 89870-6) granul ocytes" (promyelocytes, myelocytes, metamyelocytes) Lab Interpretation (test Abnormal code = 79488-8) Frankie TrentistBasic metabolic jhnwk3732-70-01 05:33:58 Test Item Value Reference Range Interpretation Comments Sodium (test code = 2951-2) 138 135- 148 mEq/L Potassium (test code = 2823-3) 3.7 3.5- 5.0 mEq/L Chloride (test code = 2075-0) 105 98- 112 mEq/L CO2 (test code = 8-9) 21 24- 31 mEq/L L Anion gap (test code = 97870-4) 12@ANIO 7- 15 mEq/L BUN (test code = 3094-0) 8 mg/dL 8-23 Creatinine (test code = 2160-0) 0.65 mg/dL 0.7-1.2 L Glucose (test code = 2345-7) 114 mg/dL 65-99 H Calcium (test code = 75244-2) 8.4 mg/dL 8.8-10.2 L Lab Interpretation (test code = Abnormal 93174-4) Frankie TrentistFL < 1 [id number] 19:00:00Hm Interface, Radiology Results - 03/19/2020 7:03 PM CDTEXAMINATION: FL < 1 HOURLOCATION: JENNY Ortega ENDOSCOPY ROOMPROCEDURE: EGD WITH STENT REMOVALSCHEDULED TIME:1100START TIME:1045END TIME: 1120FLUORO TIME: 0.3 MINS.DOSE (mGy): 3.0 MGy# OF IMAGES: 6TECH(S): METIMPRESSION:Fluoroscopy wasrequested in the Endoscopy Suite. Separate endoscopy report will be issued by the physician performing the procedure.David ViaikwhqfAkrlaw1066-54-16 11:00:40Juan Manuel Harding MD 03/19/2020 11:01 AMAirwayDate/Time: 03/19/2020 10:56 AMPerformed by: Juan Manuel Harding MDAuthorized by: Juan Manuel Harding MD Location: EndoscopyUrgency: ElectiveDifficult Airway: No Preoxygenated with 100% O2: Yes C-spine Precautions Maintained Throughout: Yes Mask Ventilation: Not attemptedFinal Airway Type: Endotracheal airwayFinal Endotracheal Airway: ETTCuffed: Yes Technique Used: Direct laryngoscopyInsertion Site: OralBlade Type: MillerLaryngoscope Blade/Videolaryngoscope Blade Size: 2ETT Size (mm): 8.0Cuff at minimum occlusion pressure: Yes Measured from: LipsETT to Lips (cm): 26Placement Verified by: CO2 detection, direct visualization and equal breath sounds Laryngoscopic view: Grade I - full view of glottisModified RSI: Yes Number of Attempts at Approach: 1Houston MethodistPhosphorus level 2020-03-19 06:09:13 Test Item Value Reference Range Interpretation Comments Phosphorus (test code = 2777-1) 2.8 mg/dL 2.4-4.5 Frankie MethodistThyroid stimulating ylpbsbz2116-34-21 06:08:06 Test Item Value Reference Range Interpretation Comments TSH (test code = 3016-3) 0.98 0.27- 4.20 uIU/mL Frankie TrentistT4, bnlk5211-01-73 06:08:04 Test Item Value Reference Range Interpretation Comments T4, free (test code = 3024-7) 1.6 ng/dL 0.9-1.7 Frankie GauthierCOVID-19 qualitative [id number] 17:48:37 Test Item Value Reference Range Interpretation Comments Interpretation (test Negative results do code = 0498010) not preclude 2019-nCoV infection and should not be used as the sole basis for treatment or other patient management decisions. Negative results must be combined with clinical observations, patient history, and epidemiological information. COVID-19 qualitative Not-Detected Not-Detected PCR result (test code = 76045-2) COVID-19 qualitative See link below for C ase Number: PCR (test code = PDF Lab Report [id number]) David MethodistXR Abdomen 1 [id number] 23:03:18Hm Interface, Radiology Results 03/17/2020 11:06 PM CDTExamination: XR ABDOMEN 1 VWClinical History: dysphagia dislodged esopahgeal stentComparison: None.Findings:Single frontal view of the abdomen is obtained. Bowel gas pattern is nonspecific but nonobstructive with scattered fecal material in the colon.There is a distal esophageal stent noted in the region of the distal esophagus, GEjunction with the distal aspect overlying the cardia or proximal body of the stomach. Clinical correlation is recommended.No free air is seen.IMPRESSION:1. Nonspecific but nonobstructive bowel gas pattern.2. Esophageal stent as described. Clinical correlation is recommended.[facility]-[id number] MethodistPartial thromboplastin time, gviqdltds9286-92-28 22:34:28 Test Item Value Reference Range Interpretation Comments PTT (test code = 28.8 23.0- 36.0 [place] [address]-4) unfractionated heparin is61.0-112.0 se conds which corresponds to Anti-Xa0.3-0.7 U/ml. [place] MethodistProthrombin time with [id number] 22:33:54 Test Item Value Reference Range Interpretation Comments Prothrombin time (test 14.5 11.5- 14.5 sec code = 5902-2) INR (test code = 1.1 [facility] 08964-2) Normalized Rati o (INR) is a therapeutic m onitoring tool for patien ts who are stable on oral anticoagulant t herapy. An INR of 2.0-3.0 is suggested for d eep vein thrombosis/pulm onary embolism. [facility] MethodistCT Chest W Contrast Abdomen W Contrast Pelvis W Contrast 2020-02-08 11:22:03Hm Interface, Radiology Results 02/08/2020 11:25 AM [...] of a metallic stent across the GE junction.[id number] [place] [facility] centerTransthoracic Echocardiogram Complete, (w Contrast, Strain and 3D if needed)2020-01-13 11:28:00Interface, Radiology Results In 01/13/2020 11:28 AM CDT Echocardiography Report [address] [address], [place] [address] [facility].Name: BOBBY FLORES.ID: [id number].Date: 01/12/2020 Refer.MD: MICHELLE CARPIO MD Exam Time: 9:07:00 AM Study Type:Routine Echo Height: 73in Weight: 159lb BSA: 1.95 m2 Age: 9 1950,69Y Sex: MALE BP: 115/67 HR: 69 bpm Sonogrphr: MIAN Rosa Pat. Stat.:Outpatient Room: [facility] Study Status:Final Echo Event ID:[id number] Order ID: [id number] Reason forStudy:chemotherapy Procedures: 2D Echo, Colorflow Doppler, [...] RAP of 5-10 mmHg.-------- MEASUREMENTS: 2DParasternal Long [place] Ao An 2.4 cm LV%fs 30 % [...] 39 ml/m2 Signed 01/13/2020 11:28 Fransico Napier M.D.David MethodistVitamin B12 zvnzi6566-89-03 11:04:15 Test Item Value Reference Range Interpretation Comments Vitamin B12 (test 532 pg/mL 211-946 Significan t overlap code = 2132-9) exists betwee n normal and deficiency states.However, most patients with deficiencies wi ll have Serum B12 <2 00 pg/mL. David MethodistFolate hdrgp9041-72-60 11:04:15 Test Item Value Reference Range Interpretation Comments Folate (test code = 2284-8) 10.8 ng/mL 4.8-24.2 [place] MethodistFerritin [id number] 10:51:58 Test Item Value Reference Range Interpretation Comments Ferritin level (test code = 2276-4) 228 ng/mL 30-400 [place] MethodistTotal iron binding spapqpcw6875-23-37 10:51:47 Test Item Value Reference Range Interpretation Comments Iron level (test code = 2498-4) 15 ug/dL 59-158 L Iron binding capacity (test code = 178 ug/dL 200-400 L 2500-7) % Saturation (test code = 2502-3) 8.4 % 20-40 L Lab Interpretation (test code = Abnormal 71093-2) Frankie GauthierBlood Culture - Routine (Left Venipuncture)2020-01-01 07:00:00 Test Item Value Reference Range Interpretation Comments Result (test code = No growth in 5 days 6463-4) [facility] [id number] 07:00:00 Test Item Value Reference Range Interpretation Comments CULTURE (BEAKER) (test No growth in 5 days code = 1095) BLOOD [id number] 04:00:00 Test Item Value Reference Range Interpretation Comments CULTURE (BEAKER) (test No growth in 5 days code = 1095) CBC with platelet count + automated [id number] 05:09:00 Test Item Value Reference Range Interpretation [...] 450 K/CU MM MPV (test code = 59546-5) 11.0 fL 9.4-12.4 nRBC (test code = [...] 2801) Lab Interpretation (test code = Abnormal 68398-1) [facility] W/PLT COUNT & AUTO [id number] 05:09:00 Test Item Value Reference Range Interpretation [...] K/CU MM L MPV (test code = 06917-5) 10.8 fL 9.4-12.4 nRBC (test code = 413) 0 0- 0 /100 WBC Lab Interpretation (test code = Abnormal 44028-0) [facility] ([facility] ONLY)2019-12-29 12:54:00 Test Item Value Reference [...] (BEAKER) (test code = 413) Basic Metabolic [id number] 06:50:00 Test Item Value Reference Range Interpretation Comments Sodium (test code = 134 meq/L 136-145 L 2951-2) Potassium (test code = 3.5 meq/L 3.5-5.1 2823-3) Chloride (test code = 105 meq/L 98-107 2075-0) CO2 (test code = 26 meq/L -8-9) BUN (test code = 7 mg/dL 7-21 3094-0) Creatinine (test code 0.68 mg/dL 0.57-1.25 = 2160-0) Glucose (test code = 108 mg/dL 70-105 H 2345-7) Calcium (test code = 7.5 mg/dL 8.4-10.2 L 80867-6) EGFR (test code = 115 mL/min/1.73 [place] [address]-1) NOT ACCURATE CREATININE CLEARANCE IN PREDICTING GLOMERULAR FILTRATION RATE . ESTIMATED GFR I S NOT APPLICABLE FOR DIALYSIS PATIENTS. NORBERTO (test code = NORBERTO) Journeyman Powerhouse Operator ID - PIAYA L Lab Interpretation Abnormal (test code = 96475-4) [facility] METABOLIC [id number] 06:50:00 Test Item Value Reference Range Interpretation Comments SODIUM (BEAKER) 134 meq/L 136-145 L (test code = 381) POTASSIUM (BEAKER) 3.5 meq/L 3.5-5.1 (test code = 379) CHLORIDE (BEAKER) 105 meq/L 98-107 (test code = 382) CO2 (BEAKER) (test 26 meq/L - code = 355) BLOOD UREA NITROGEN 7 [...] S NOT APPLICABLE FOR DIALYSIS PATIEN TS. Journeyman Powerhouse Operator ID - PIAYA LCBC (HEMOGRAM ONLY)2019-12-29 06:22:00 Test Item Value [...] (BEAKER) (test code = 413) Prepare Leuko-Red [id number] 23:54:00 Test Item Value Reference Range Interpretation Comments CROSSMATCH (test code = COMPATIBLE 2264) Unit ABO (test code = A Neg 5966847) UNIT NUMBER (test code = [id number] 934-0) Status (test code = 9257577) WORK IN PROGRESS Blood Bank Product (test RED BLOOD CELLS code = 2263) PRODUCT CODE (test code = P6739S28 933-2) [facility] (HEMOGRAM ONLY)2019-12-28 18:11:00 Test Item [...] 0-0 (BEAKER) (test code = 413) POC-Glucose [id number] 05:44:00 Test Item Value Reference Range Interpretation Comments POC-Glucose Meter (test 112 mg/dL 70-110 H : TE STED AT [facility] code = 1538) [address] [place], [address]: Journeyman Powerhouse Operator/Techni carlota ID = [id number] for MONSERRAT HYMAN Lab Interpretation (test Abnormal code = 78081-8) [facility] HospitalPOCT-GLUCOSE [id number] 05:44:00 Test Item Value Reference Range Interpretation Comments POC-GLUCOSE METER 112 mg/dL 70-110 H : TESTED A T [facility] 6720 (BEAKER) (test code = [facility], 1538) [address]: Journeyman Powerhouse Operator/Techni carlota ID = [id number] for MONSERRAT POTTS BASIC METABOLIC [id number] 05:05:00 Test Item Value Reference Range Interpretation [...] S NOT APPLICABLE FOR DIALYSIS PATIEN TS. Journeyman Powerhouse Operator ID - PIAYA LCBC (HEMOGRAM ONLY)2019-12-28 04:35:00 [...] CELLS (BEAKER) (test code = 413) POCT-GLUCOSE [id number] 23:45:00 Test Item Value Reference Range Interpretation Comments POC-GLUCOSE METER 107 mg/dL 70-110 : TESTED A T [facility] 6720 (BEAKER) (test code = [facility] [place], 1538) [address]: Journeyman Powerhouse Operator/Techni carlota ID = [id number] for YARITZA CHOWDARY POCT-GLUCOSE [id number] 18:25:00 Test Item Value Reference Range Interpretation Comments POC-GLUCOSE METER 118 mg/dL 70-110 H : TESTED A T [facility] 6720 (BEAKER) (test code = [facility], 1538) [address]: Journeyman Powerhouse Operator/Techni carlota ID = [id number] for LUCILLE ROBERTO CBC (HEMOGRAM ONLY)2019-12-27 15:52:00 [...] WBC 0-0 (test code = 413) POCT-GLUCOSE [id number] 15:45:00 Test Item Value Reference Range Interpretation Comments POC-GLUCOSE METER 118 mg/dL 70-110 H : TESTED A T [facility] 6720 (BEAKER) (test code = [place], 1538) [address]: Journeyman Powerhouse Operator/Techni carlota ID = [id number] for KEITH AC CBC (HEMOGRAM ONLY)2019-12-27 08:51:00 [...] 0-0 (BEAKER) (test code = 413) Hemoglobin [id number] 08:16:00 Test Item Value Reference Range Interpretation Comments Hemoglobin A1C (test code = 4548-4) 5.5 % 4.3-6.1 Lab Interpretation (test code = Normal 47844-6) [facility] HospitalHEMOGLOBIN [id number] 08:16:00 Test Item Value Reference Range Interpretation Comments HEMOGLOBIN A1C (BEAKER) (test code = 5.5 % 4.3-6.1 368) ABORH, [id number] 03:54:00 Test Item Value Reference Range Interpretation Comments ABO Grouping (test code = 2588) A Rh Factor (test code = 2589) NEG [facility] HospitalType and screen, peynxrpem5250-61-25 03:35:00 Test Item Value Reference Range Interpretation Comments ABO/RH AUTOMATED (BEAKER) (test A NEGATIVE code = 2260) Ab Scrn (test code = 890-4) NEGATIVE [facility] HospitalProthrombin time/[id number] 03:30:00 Test Item Value Reference Range Interpretation [...] valves. Lab Interpretation Abnormal (test code = 57174-2) [facility] HospitalPROTHROMBIN TIME/[id number] 03:30:00 Test Item Value Reference Range Interpretation [...] (test code = 2.1 g/dL 3.5-5 L 44580-4) Alkaline Phosphatase 77 U/L 40-150 (test code = 6768-6) Total Bilirubin (test 1.4 mg/dL 0.2-1.2 H code = 1974-2) Sodium (test code = 131 meq/L 136-145 [...] (test code = 7.0 mg/dL 8.4-10.2 L 35815-4) AST (test code = 12 U/L 5-34 1920-8) ALT (test code = 12 U/L 6-55 1742-6) EGFR (test code = 113 mL/min/1.73 [place] [address]-2) NOT ACCURATE CREATININE CLEARANCE IN PREDICTING GLOMERULAR FILTRATION RATE . ESTIMATED GFR I S NOT APPLICABLE FOR DIALYSIS PATIENTS. NORBERTO (test code = NORBERTO) Journeyman Powerhouse Operator ID - BS Lab Interpretation Abnormal (test code = 80768-0) [facility] HospitalCOMPREHENSIVE METABOLIC [id number] 03:14:00 Test Item Value Reference Range Interpretation [...] S NOT APPLICABLE FOR DIALYSIS PATIEN TS. Journeyman Powerhouse Operator ID - HLFvrbqmbls8188-50-46 03:10:00 Test Item Value Reference Range Interpretation Comments Magnesium (test code = 1.7 mg/dL 1.6-2.6 20136-3) NORBERTO (test code = NORBERTO) Journeyman Powerhouse Operator ID - BS Lab Interpretation (test Normal code = 26251-9) [facility] HospitalMAGNESIUM2020-04-14 03:10:00 Test Item Value Reference Range Interpretation Comments MAGNESIUM (BEAKER) (test code = 1.7 mg/dL 1.6-2.6 627) Journeyman Powerhouse Operator ID - BSLactic acid, [id number] 03:02:00 Test Item Value Reference Range Interpretation Comments Lactate, Venous (test code = 1.75 mmol/L 0.5-2.2 2872) NORBERTO (test code = NORBERTO) Journeyman Powerhouse Operator ID - BS Lab Interpretation (test Normal code = 25050-6) [facility] HospitalLACTIC ACID, [id number] 03:02:00 Test Item Value Reference Range Interpretation Comments LACTATE BLOOD VENOUS (2) (BEAKER) 1.75 mmol/L 0.50-2.20 (test code = 2872) Journeyman Powerhouse Operator ID - BSCBC W/PLT COUNT & AUTO [id number] 03:01:00 Test Item Value Reference Range Interpretation [...] = 2801) RAD, CHEST, 1 VIEW, NON [id number] 02:35:00Reason for exam:->c/f aspirationShould this be performed [...] The bony thorax is unremarkable. Signed: Eliceo Pierceeport Verified Date/Time: 12/27/2019 02:35:34 XR chest 1 view portable / [id number] 02:35:00 Interface, External Ris In - 12/27/2019 [...] bony thorax is unremarkable. Signed: Eliceo Pierce MDReport Verified Date/Time: 12/27/2019 02:35:34 [facility], [facility]O, NON-SPECIFIC, UP TO 1 [id number] 12:58:00 Reason for exam:->dysphagiaFINAL REPORT A fluoroscopic unit was utilized for a procedure performed in the operating room. No interpretation was requested. Please refer to the operative report regarding findings. Please refer to PACS for patient radiation dose information. Signed: JR Benítez Robert MDReport Verified Date/Time: 12/20/2019 12:58:42 Reading Location: [facility] Radiology Reading Room [place] fluoro non-specific up to 1 [id number] 12:58:00Interface, External Ris In - 12/20/2019 1:00 PM CDTFINAL REPORT A fluoroscopic unit was utilized for a procedure performed in the operating room. No interpretation was requested. Please refer to the operative report regarding findings. Please refer to PACS for patient radiationdose information. Signed: JR Benítez Robert MDReport Verified Date/Time: 12/20/2019 12:58:42Reading Location: [facility] Radiology Reading Room [facility] HospitalIR Port Mtuwhmufl5173-73-43 14:56:41Hm Interface, Radiology Results Incoming 12/09/2019 2:59 PM CDTEXAMINATION: IR PORT PLACEMENTCLINICAL HISTORY: C15.9 Malignant neoplasm of esophagus unspecified, Z01.818 Encounter for other preprocedural examination, esophageal cancerCOMPARISON: None.PROCEDURE: Venous port placementProcedural Pe rsonnelAttending physician(s): Chuy Garcia MDPre-procedure diagnosis: Esophageal cancerPost-procedure diagnosis: SameIndication: Administration of [...] and a permanent image was stored.Port placed: Angiodynamics SmartPortCatheter size (Djiboutian): 6Catheter flush: Heparin (100 units/mL)ClosureThe access site and incision were closed and sterile dressing(s) were applied.Access site closure technique: Tissue adhesiveIncision closure technique: Absorbable suture and tissue adhesivePatient discharged from procedure suite with device accessed: NoContrastContrast agent: NoneContrast volume (mL): 0Radiation DoseReference air kerma (mGy): 7 Additional DetailsAdditional description of procedure: NoneEquipment details: NoneSpecimens removed: NoneEstimated blood loss (mL): Less than 10Standardized report: [id number] MethodistXR Chest External [id number] 20:37:35This exam was not acquired at a Confucianism facility and has not been interpreted by a Confucianism Provider. The exam was imported into our imaging system.Carney MethodistCT Abd/Pelvic External [id number] 20:37:05This exam was not acquired at a Confucianism facility and has not been interpreted by a Confucianism Provider. The exam was imported into our imaging system.Carney MethodistCancer antigen [id number] 13:00:57 Test Item Value Reference Range Interpretation Comments CA 19-9 (test code 1 U/mL 0-35 The Michael Sonido 8000 CA19-9 = 1006) immunoassay was used. Results obtained with d ifferent assay methods or kits should not be used interchang eably and may be different. Carney MethodistCarcinoembryonic antigen (CEA)2019-12-07 13:00:10 Test Item Value Reference Range Interpretation Comments CEA (test code = 3.3 ng/mL 0-3.8 Reference r yanely for heavy 2038-) smokers: 0.0 - 5.5 ng/mLThe MICHAEL Sonido 8000 CEA immunoassay was used. Results obtaine d with different assay methods or kits should not be used interchangeably and may be different. Carney MethodistXR Chest 2 [id number] 12:38:27Hm Interface, Radiology Results 12/07/2019 12:41 PM CDTEXAMINATION: XR CHEST 2 VWCLINICAL HISTORY: C15.9 Malignant neoplasm of esophagus unspecified, esopahgeal cancerCOMPARISON: NoneIMPRESSION:1.Examination was performed with nipple markers.2.No pulmonary infiltrates or nodules are seen.3.Heart size within normal limits. Vessels are not congested.[id number] Gauthier
[2020-04-14 03:52] LABS: Absolute Lymphocytes (CBC) 1.3 K/uL (0.7-4.9); Basophils % 0.4 % (0-1.3); Lymphocytes % 21.9 % (15.3-44.8); MPV 9.7 fL (7.6-11.3); RBC Red Blood Cell Count 2.02 M/uL (4.33-5.43)
[2020-04-14] MEDS ORDERED: PANTOPRAZOLE 40 MG INJ ONE (03:54)
[2020-04-14] MEDS ORDERED: NA CHLORIDE 0.9% 1,000 ML ONE (03:55)
[2020-04-14 03:56] LABS: Protime INR 1.06
[2020-04-14 04:03] LABS: Hematocrit 18.7 % (39.6-49.0)
[2020-04-14 04:07] LABS: ALT/SGPT 16 U/L (12-78); AST/SGOT 19 U/L (15-37); Albumin 1.8 g/dL (3.4-5.0); Alkaline Phosphatase 79 U/L (45-117); BUN Blood Urea Nitrogen 28 mg/dL (7-18); Bicarbonate 22 mmol/L (21-32); Bilirubin Direct 0.1 mg/dL (0-0.2); Bilirubin Total 0.2 mg/dL (0.2-1.0); CKMB Creatine Kinase MB < 1.0 ng/mL (0.3-3.6); Creatine Phosphokinase 20 U/L (39-308); Glucose Level 136 mg/dL (74-106); Lipase 69 U/L (73-393); Magnesium 1.6 mg/dL (1.8-2.4); Potassium 3.6 mmol/L (3.5-5.1); Protein, Total 4.5 g/dL (6.4-8.2); Sodium Level 142 mmol/L (136-145); Troponin (Emerg Dept Use Only) 0.02 ng/mL (0.0-0.045)
[2020-04-14 04:22] LABS: Anisocytosis 2+; Blood Morphology Comment NOTED (NOT SEEN); Hypochromasia 1+; Platelet Estimate ADEQ; White Blood Cell Scan OK
[2020-04-14] MEDS ORDERED: NA CHLORIDE 0.9% 250 ML ONE (04:47)
--- NOTE | 2020-04-14 05:19 | ER ---
Nurse's Notes [facility] Name: Sagrario Sood Age: 69 yrs Sex: Male : 1950 Arrival Date: 04/14/2020 Time: 03:29 Bed 8 Private MD: Diagnosis: GI Bleed Presentation: 04/14 03:29 Chief complaint: EMS states: they were toned out for report of pt having syncopal bb episode and fall in the bathroom pt was hypotensive on their arrival BP was 77 systolic they started an IV and gave NS. Pt states he does not remember passing out. Pt has had diarrhea x 2 days. Coronavirus screen: The client reports previous COVID testing was negative. Date of collection: March 18, 2020 pt's is positive for COVID. Ebola Screen: No symptoms or risks identified at this time. Initial Sepsis Screen: Does the patient meet any 2 criteria? No. Patient's initial sepsis screen is negative. Does the patient have a suspected source of infection? No. Patient's initial sepsis screen is negative. Risk Assessment: Do you want to hurt yourself or someone else? Patient reports no desire to harm self or others. Onset of symptoms was April 14, 2020. Care prior to arrival: Medication(s) given: Normal saline infusion, 400 mL IV initiated. 20 GA, in the left antecubital area, Glucose check: 140. 03:29 Method Of Arrival: EMS: [facility] 03:29 Acuity: PHILL 2 bb 03:40 Note spouse Sun Vance phone # [phone], Pt's doctor at [address] [phone]. 20:41 Note [facility] notified by telephone of pt's COVID positive results. bb Triage Assessment: 03:35 General: Appears cachectic, Behavior is calm, cooperative. Pain: Complains of pain in bb hips. Neuro: Reports a syncopal episode. Historical: - Allergies: 03:35 Sulfa (Sulfonamide Antibiotics); bb - Home Meds: 03:35 Hydrocodone-Acetaminophen Oral [Active]; bb - PMHx: 03:35 Cancer; ESOPHAGEAL WITH METS TO LYMPH NODES AND LIVER; CVA; Hypertension; bb - Immunization history:: Adult Immunizations unknown. - Social history:: Smoking status: Patient/guardian denies using tobacco, Stopped _ months ago 7. Screenin:35 Abuse screen: Denies threats or abuse. Denies injuries from another. Nutritional rr5 screening: No deficits noted. Tuberculosis screening: No symptoms or risk factors identified. Fall Risk IV access (20 points). Total Hill Fall Scale indicates No Risk (0-24 pts). Assessment: 03:35 General: Appears in no apparent distress. uncomfortable, Behavior is calm, cooperative. rr5 03:35 Pain: Denies pain. Neuro: Level of Consciousness is awake, alert, obeys commands, rr5 Oriented to person, place, time, situation, Reports a syncopal episode weakness. Cardiovascular: Rhythm is regular. Respiratory: Airway is patent Respiratory effort is even, unlabored, Respiratory pattern is regular, symmetrical. GI: No signs and/or symptoms were reported involving the gastrointestinal system. : No signs and/or symptoms were reported regarding the genitourinary system. EENT: No signs and/or symptoms were reported regarding the EENT system. Derm: Skin is fragile, is thin, Skin is pale, Skin temperature is warm. Musculoskeletal: Reports. 04:05 Reassessment: Patient appears in no apparent distress at this time. Patient is alert, rr5 oriented x 3, equal unlabored respirations, skin warm/dry/pink. came back from C T scan. accessed port a catheter right chest. 05:20 Reassessment: Patient appears in no apparent distress at this time. Patient is alert, rr5 oriented x 3, equal unlabored respirations, skin warm/dry/pink. first unit of PRBC started, consented, double checked with kory SMALLS Type A negative blood component number [id number], administration lot number [id number] Expires 04/19/20 2359H. 05:51 Reassessment: call made to gabriela spoke to [facility], she responded to rr5 call back after 15 minutes. 06:20 Reassessment: patient sun [phone] updated for the plan of care spoke over rr5 the phone. 06:35 Reassessment: Patient appears in no apparent distress at this time. Patient is alert, rr5 oriented x 3, equal unlabored respirations, skin warm/dry/pink. report given to amador SMALLS from gabriela over the phone. 07:10 Reassessment: Patient appears in no apparent distress at this time. Patient is alert, rr5 oriented x 3, equal unlabored respirations, skin warm/dry/pink. report given to AMI awake, alert vitally stable, no complaints made. 1st Unit PRBC consumed and terminated. 15:34 Reassessment: + COVID RESULTS FAXED TO TRANSFERRING FACILITY. [facility]. Vital Signs: 03:29 BP 85 / 66; Pulse 77; Resp 14 S; Temp 97.6(O); Pulse Ox 95% on R/A; Weight 65.77 kg bb (R); Height 6 ft. 1 in. (185.42 cm) (R); 03:44 BP 97 / 58; Pulse 75; Resp 16; Pulse Ox 99% ; rr5 04:30 BP 94 / 63; Pulse 68; Resp 14; Pulse Ox 100% ; rr5 04:40 BP 106 / 64; Pulse 67; Resp 19; Pulse Ox 99% ; rr5 05:20 BP 93 / 70; Pulse 69; Resp 16; Temp 97.4; Pulse Ox 100% on R/A; rr5 03:29 Body Mass Index 19.13 (65.77 kg, 185.42 cm) bb 05:20 suceeding VS please refer to BT form. rr5 [place] Coma Score: 03:35 Eye Response: spontaneous(4). Verbal Response: oriented(5). Motor Response: obeys rr5 commands(6). Total: 15. 04:30 Eye Response: spontaneous(4). Verbal Response: oriented(5). Motor Response: obeys rr5 commands(6). Total: 15. ED Course: 03:29 Patient arrived in ED. bb 03:30 Maintain EMS IV. Dressing intact. Good blood return noted. Site clean \T\ dry. Gauge \T\ rr 5 site: 20 left AC. 03:32 Karel Bach RN is Primary Nurse. rv 03:34 Triage completed. bb 03:35 Kavon Santana MD is Attending Physician. mh7 03:35 Arm band placed on Patient placed in an exam room, on a stretcher, on pulse oximetry. bb 03:35 Patient has correct armband on for positive identification. Placed in gown. Bed in low rr5 position. Call light in reach. Side rails up X2. learning center coordinator on. Pulse ox on. NIBP on. 03:35 Door closed. Noise minimized. Lights dimmed. Warm blanket given. Pillow given. rr5 03:35 EKG done, by ED staff, reviewed by Kavon Santana MD. rr5 03:58 CT Head Brain wo Cont In Process Unspecified. EDMS 04:11 Initiated transfer with [facility] per family request. Spoke with Kennedi. She said she tt3 would reach out to the patients doctor and asked for me to reach out as well and call back. 04:15 covid 19. rr5 04:20 Accessed Port-a-Cath. Clean \T\ dry. Dressing intact. Good blood return. Flushes easily. rr5 04:[address] Rodriguez via the number provided by patients family. Spoke with Sully and she tt3 said she would page Dr. Rodriguez and have him call back regarding patient transfer. 04:25 X-ray(s) taken. rr5 04:27 Dr. Rodriguez called and was transferred to speak with Dr. Santana regarding the patients tt3 case. 04:29 Called [facility] back and spoke with Lila but was transferred to speak tt3 with Kennedi. Dr. Rodriguez was going to call the transfer center as well and work on getting the patient a bed. 04:30 Chest Single View XRAY In Process Unspecified. EDMS 05:13 Kennedi Kirkland called with Dr. Millard on the line to speak with Dr. Santana. tt3 05:17 Kennedi Kirkland gave admin approval. Dr. Niko Millard is the accepting physician. tt3 Face sheet faxed to [phone] per Kennedi's request. She stated once she got that she would call back with a bed assignment and the number for the nurse to call report. 05:36 No provider procedures requiring assistance completed. rr5 05:42 Kennedi Kirkland called back with the bed assignment and number for report. The patient tt3 is going to [facility] [address] [place] [address] Bed 781. The number for the nurse to call report is [phone]. 07:14 Patient transferred, IV remains in place. intact, No redness/swelling at site. rr5 Administered Medications: 04:25 Drug: NS 0.9% 1000 ml Route: IV; Rate: 1000 ml; Site: Port-a-cath; rr5 05:31 Follow up: Response: No adverse reaction; IV Status: Completed infusion; IV Intake: rr5 1000ml 04:26 Drug: ProTONIX 80 mg Route: IVP; Site: Port-a-cath; rr5 05:30 Follow up: Response: No adverse reaction rr5 Medication: 05:20 Blood products: PRBCs X 1 unit given. Type A negative, [id number] exp: 04/19/2003/03/2359, rr5 wristband [id number] See transfusion record. Point of Care Testing: Blood Glucose: 03:44 Blood Glucose: 125 mg/dL; rr5 Guaiac: 03:46 Stool Guaiac: Positive; Stool Hemoccult Control: Pass; rr5 Ranges: Intake: 05:31 IV: 1000ml; Total: 1000ml. rr5 07:10 IV: 250ml (Blood Products); Total: 1250ml. rr5 Output: 07:10 Urine: 300ml; Total: 300ml. rr5 Outcome: 05:19 ER care complete, transfer ordered by . [facility] 07:14 Transferred by ground EMS to [facility], Transfer form completed. rr5 07:14 Condition: stable 07:14 Instructed on the need for transfer. 07:16 Patient left the ED. rr5 Signatures: Dispatcher [employer] EDMS Latesah Freitas RN RN bb Smirch, Shelby, RN RN ss Vicente, Ronaldo, RN RN rv Roque, Raymond, RN RN rr5 Kavon Santana MD MD [facility] Dudley Squires tt3 Corrections: (The following items were deleted from the chart) 03:37 03:29 Chief complaint: EMS states: they were toned out for report of pt having syncopal bb episode and fall in the bathroom pt was hypotensive on their arrival BP was 77 systolic they started an IV and gave NS bb
--- NOTE | 2020-04-14 05:20 | EDPHYS ---
Physician Documentation [facility] Name: Sagrario Sood Age: 69 yrs Sex: Male : 1950 Arrival Date: 04/14/2020 Time: 03:29 Bed 8 Private MD: ED Physician Kavon Santana HPI: 04/14 03:57 This 69 yrs old Male presents to ER via EMS with complaints of Syncope. mh7 03:57 The patient has experienced syncope, collapsed. mh7 03:58 Onset: The symptoms/episode began/occurred today. Duration: This was a single episode, mh7 that lasted an unknown period of time. Context: the episode(s) was witnessed, by no one, occurred at home, occurred while the patient was. 03:58 Context: occurred while the patient was standing, Just prior to the episode the patient mh7 experienced no apparent symptoms. Associated injury: The patient did not suffer any apparent associated injury. Associated signs and symptoms: Pertinent positives: weakness, generalized, Pertinent negatives: abdominal pain, agitation, ataxia, blurred vision, chest pain, combativeness, confusion, diaphoresis, dizziness, headache, lightheadedness, nausea, numbness, palpitations, seizure, shortness of breath, tingling, vertigo, vomiting. Current symptoms: Currently, the patient is not experiencing any symptoms, the patient feels back to baseline, no decreased level of consciousness, no confusion, no dysphasia, no headache, no paralysis, no visual changes. Patient reports black stools for the past 3 days.. Historical: - Allergies: 03:35 Sulfa (Sulfonamide Antibiotics); bb - Home Meds: 03:35 Hydrocodone-Acetaminophen Oral [Active]; bb - PMHx: 03:35 Cancer; ESOPHAGEAL WITH METS TO LYMPH NODES AND LIVER; CVA; Hypertension; bb - Immunization history:: Adult Immunizations unknown. - Social history:: Smoking status: Patient/guardian denies using tobacco, Stopped _ months ago 7. ROS: 03:58 Constitutional: Negative for fever, chills, and weight loss, Eyes: Negative for injury, mh7 pain, redness, and discharge, ENT: Negative for injury, pain, and discharge, Neck: Negative for injury, pain, and swelling, Cardiovascular: Negative for chest pain, palpitations, and edema, Respiratory: Negative for shortness of breath, cough, wheezing, and pleuritic chest pain, Back: Negative for injury and pain, : Negative for injury, bleeding, discharge, and swelling, MS/Extremity: Negative for injury and deformity, Skin: Negative for injury, rash, and discoloration, Psych: Negative for depression, anxiety, suicide ideation, homicidal ideation, and hallucinations, Allergy/Immunology: Negative for hives, rash, and allergies, Endocrine: Negative for neck swelling, polydipsia, polyuria, polyphagia, and marked weight changes. Exam: 03:58 Head/Face: Normocephalic, atraumatic. Eyes: Pupils equal round and reactive to light, mh7 extra-ocular motions intact. Lids and lashes normal. Conjunctiva and sclera are non-icteric and not injected. Cornea within normal limits. Periorbital areas with no swelling, redness, or edema. 03:58 ENT: Nares patent. No nasal discharge, no septal abnormalities noted. Tympanic membranes are normal and external auditory canals are clear. Oropharynx with no redness, swelling, or masses, exudates, or evidence of obstruction, uvula midline. Mucous membranes moist. Neck: Trachea midline, no thyromegaly or masses palpated, and no cervical lymphadenopathy. Supple, full range of motion without nuchal rigidity, or vertebral point tenderness. No Meningismus. Chest/axilla: Normal chest wall appearance and motion. Nontender with no deformity. No lesions are appreciated. Cardiovascular: Regular rate and rhythm with a normal S1 and S2. No gallops, murmurs, or rubs. Normal PMI, no JVD. No pulse deficits. Respiratory: Lungs have equal breath sounds bilaterally, clear to auscultation and percussion. No rales, rhonchi or wheezes noted. No increased work of breathing, no retractions or nasal flaring. 03:58 Back: No spinal tenderness. No costovertebral tenderness. Full range of motion. 03:58 MS/ Extremity: Pulses equal, no cyanosis. Neurovascular intact. Full, normal range of motion. Neuro: Awake and alert, GCS 15, oriented to person, place, time, and situation. Cranial nerves II-XII grossly intact. Motor strength 5/5 in all extremities. Sensory grossly intact. Cerebellar exam normal. Normal gait. Psych: Awake, alert, with orientation to person, place and time. Behavior, mood, and affect are within normal limits. 03:58 Constitutional: The patient appears alert, awake, frail, obviously ill. 03:58 Eyes: Conjunctiva: pale, bilaterally. 03:58 Abdomen/GI: Inspection: abdomen appears normal, Bowel sounds: normal, in all quadrants, Palpation: abdomen is soft and non-tender, in all quadrants, Rectal exam: Stool: guaiac positive, black, Indicators: McBurney's point is not tender, Piña's sign is negative, Rovsing's sign is negative, Obturator sign is negative, Psoas sign is negative, Liver: no appreciated palpable abnormalities, Hernia: not appreciated. 03:58 Skin: 04:46 ECG was reviewed by the Attending Physician. mh7 Vital Signs: 03:29 BP 85 / 66; Pulse 77; Resp 14 S; Temp 97.6(O); Pulse Ox 95% on R/A; Weight 65.77 kg bb (R); Height 6 ft. 1 in. (185.42 cm) (R); 03:44 BP 97 / 58; Pulse 75; Resp 16; Pulse Ox 99% ; rr5 04:30 BP 94 / 63; Pulse 68; Resp 14; Pulse Ox 100% ; rr5 04:40 BP 106 / 64; Pulse 67; Resp 19; Pulse Ox 99% ; rr5 05:20 BP 93 / 70; Pulse 69; Resp 16; Temp 97.4; Pulse Ox 100% on R/A; rr5 03:29 Body Mass Index 19.13 (65.77 kg, 185.42 cm) bb 05:20 suceeding VS please refer to BT form. rr5 [place] Coma Score: 03:35 Eye Response: spontaneous(4). Verbal Response: oriented(5). Motor Response: obeys rr5 commands(6). Total: 15. 04:30 Eye Response: spontaneous(4). Verbal Response: oriented(5). Motor Response: obeys rr5 commands(6). Total: 15. MDM: 03:35 Patient medically screened. mh7 05:17 Differential Diagnosis: cardiac arrhythmia, GI bleed, idiopathic syncope, pseudo mh7 seizure, seizure, sepsis, vasovagal episode. Data reviewed: vital signs, nurses notes, EMS record, old medical records, lab test result(s), cardiac enzymes, CBC, electrolytes, urinalysis, EKG, radiologic studies, CT scan, plain films. Data interpreted: Pulse oximetry: on room air is 99 %. Interpretation: normal. Counseling: I had a detailed discussion with the patient and/or guardian regarding: the historical points, exam findings, and any diagnostic results supporting the discharge/admit diagnosis, lab results, radiology results, the need to transfer to another facility. Response to treatment: the patient's symptoms have markedly improved after treatment. 06:15 Special discussion:. ED course: . 04/14 03:36 Order name: Basic Metabolic Panel; Complete Time: 04:29 7 04/14 05:14 Interpretation: GLUC 136. 04/14 03:36 Order name: CBC with Diff; Complete Time: 04:29 7 04/14 03:36 Order name: Ckmb; Complete Time: 04:29 7 04/14 03:36 Order name: CPK; Complete Time: 04:29 7 04/14 03:36 Order name: Hepatic Function; Complete Time: 04:29 7 04/14 03:36 Order name: Lipase; Complete Time: 04:29 7 04/14 03:36 Order name: Magnesium; Complete Time: 04:29 7 04/14 03:36 Order name: Protime (+inr); Complete Time: 04:07 7 04/14 03:36 Order name: Ptt, Activated; Complete Time: 04:07 7 04/14 03:36 Order name: Troponin (emerg Dept Use Only); Complete Time: 04:29 7 04/14 03:36 Order name: Type And Screen [facility] 04/14 03:46 Order name: Glucose, Ancillary Testing; Complete Time: 04:07 EDMS 04/14 03:52 Order name: COVID-19 rr5 04/14 04:04 Order name: CBC Smear Scan; Complete Time: 04:29 MS 04/14 03:36 Order name: EKG; Complete Time: 03:37 7 04/14 03:36 Order name: Cardiac monitoring; Complete Time: 03:43 7 04/14 03:36 Order name: EKG - Nurse/Tech; Complete Time: 03:43 7 04/14 03:36 Order name: IV Saline Lock; Complete Time: 03:43 [facility] 04/14 03:36 Order name: Labs collected and sent; Complete Time: 03:43 7 04/14 03:36 Order name: NPO; Complete Time: 03:43 04/14 03:36 Order name: O2 Per Protocol; Complete Time: 03:43 04/14 03:36 Order name: O2 Sat Monitoring; Complete Time: 03:43 7 04/14 03:36 Order name: Urine Dipstick-Ancillary (obtain specimen); Complete Time: 07:13 [facility] 04/14 03:36 Order name: CT Head Brain wo Cont [facility] 04/14 04:08 Order name: Chest Single View XRAY [facility] 04/14 04:32 Order name: Packed RBC Leukored [facility] 04/14 04:33 Order name: Guiac rust 04/14 07:02 Order name: Urine Dipstick--Ancillary (enter results) eb EC:46 Rate is 73 beats/min. Rhythm is regular, Normal Sinus Rhythm. QRS Farnam is Normal. LA mh7 interval is normal. QRS interval is normal. QT interval is normal. No Q waves. T waves are Normal. No ST changes noted. Administered Medications: 04:25 Drug: NS 0.9% 1000 ml Route: IV; Rate: 1000 ml; Site: Port-a-cath; rr5 05:31 Follow up: Response: No adverse reaction; IV Status: Completed infusion; IV Intake: rr5 1000ml 04:26 Drug: ProTONIX 80 mg Route: IVP; Site: Port-a-cath; rr5 05:30 Follow up: Response: No adverse reaction rr5 Point of Care Testing: Blood Glucose: 03:44 Blood Glucose: 125 mg/dL; rr5 Guaiac: 03:46 Stool Guaiac: Positive; Stool Hemoccult Control: Pass; rr5 Ranges: Critical Glucose Levels:Adult <50 mg/dl or >400 mg/dl <40 mg/dl or >180 mg/dl Disposition: 04/14/20 05:19 Transfer ordered to [facility]. Diagnosis is GI Bleed. - Reason for transfer: Higher level of care. - Accepting physician is Dr. Bui. - Condition is Stable. - Problem is new. - Symptoms have improved. Signatures: Dispatcher [employer] Latesha Franklin RN RN Matthew Yoder RN RN rr5 Kavon Santana MD MD mh7 Corrections: (The following items were deleted from the chart) 07:16 05:19 04/14/2020 05:19 Transfer ordered to [facility]. Diagnosis is GI Bleed. rr5 Reason for transfer: Higher level of care. Accepting physician is Dr. Bui. Condition is Stable. Problem is new. Symptoms have improved. mh7
[2020-04-14 07:26] VITALS: BP 93/70; TEMP 97.4; O2SAT 100
[2020-04-14 07:35] LABS: Urine Blood NEGATIVE (NEG); Urine Glucose NEGATIVE (NEG); Urine Protein TRACE (NEG)
--- NOTE | 2020-04-14 12:34 | RAD REPORT ---
EXAM DESCRIPTION: RAD - Chest Single View - 04/14/2020 4:30 am CLINICAL HISTORY: syncope Chest pain. COMPARISON: Chest Single View dated 12/26/2019; Chest Pa And Lat (2 Views) dated 11/17/2019; CHEST SING LE VIEW dated 07/20/2013 FINDINGS: Portable technique limits examination quality. The lungs are grossly clear. The heart is normal in size. No displaced fractures.Right-sided port cat heter its tip in the SVC. IMPRESSION: No acute intrathoracic process suspected.
--- NOTE | 2020-04-16 11:47 | RAD REPORT ---
EXAM DESCRIPTION: CT Head Without Intravenous Contrast CLINICAL HISTORY: The patient is 69 years old and is Male; SYNCOPE TECHNIQUE: Axial computed tomography images of the head/brain without intravenous contrast. Sagitt al and coronal reformatted images were created and reviewed. This CT exam was performed using one o r more of the following dose reduction techniques: automated exposure control, adjustment of the mA and/or kV according to patient size, and/or use of iterative reconstruction technique. COMPARISON: CT head December 26, 2019. FINDINGS: Brain: Unremarkable. No hemorrhage. No significant white matter disease. No edema. Ventricles: Unremarkable. No ventriculomegaly. Bones/joints: Unremarkable. No acute skull fracture. Soft tissues: Unremarkable. Sinuses: Moderate left sphenoid sinus mucosal thickening, slightly improved. Mastoid air cells: No significant mastoid fluid. IMPRESSION: 1. No acute intracranial findings. No hemorrhage. 2. Moderate left sphenoid sinus mucosal thickening, slightly improved. Electronically signed by: Shannon Ospina MD 04/14/2020 4:07 AM CDT Due to temporary technical issues with the PACS/Fluency reporting system, reports are being signed by the in house radiologist without review as a courtesy to ensure prompt reporting. The interpreting r adiologist is fully responsible for the content of the report.
== END 2020-04-14 07:16 | disposition short-term general hospital (02) ==
LOC: ER 03:24
DX: K92.2 Gastrointestinal hemorrhage, unspecified (principal); U07.1 COVID-19; C15.9 Malignant neoplasm of esophagus, unspecified; C77.9 Secondary and unspecified malignant neoplasm of lymph node, unspecified; C78.7 Secondary malignant neoplasm of liver and intrahepatic bile duct; I10 Essential (primary) hypertension; Z88.2 Allergy status to sulfonamides
CPT/HCPCS: 96361; 93005; 85025; 80048; 36415; 86900; 83735; 86850; 82550; 85610; 86901; 82947; 80076; 85730; 81003; 84484; 82553; 83690; 70450; 71045; 36430; 96374; 99285; U0002; C9113; P9016; J7050; J7030